=== PATIENT | male | born 1990 | race Caucasian/White ===

== ENCOUNTER 2023-06-12 21:42 | Inpatient (IN) | payer OTHER ==
[2023-06-12] MEDS ORDERED: KETOROLAC 15 MG/ML 1 ML VIAL IVP STA (22:26)
[2023-06-12] MEDS ORDERED: SODIUM CHLORIDE 0.9% 1,000 ML IV STA (22:44)
[2023-06-12] MEDS ORDERED: LORazepam 2 MG/ML INJ IV STA (22:49)
[2023-06-12 23:24] LABS: Basophils # (A) 0.1 k/uL (0-0.2); Basophils % (A) 0 %; Eosinophils # (A) 0.2 k/uL (0-0.7); Eosinophils % (A) 1 %; HCT 43.9 % (39.0-53.0); HGB 14.4 gm/dL (13.0-17.5); Lymphocytes # (A) 0.8 k/uL (1.0-4.8); Lymphocytes % (A) 3 %; MCH 31.8 pg (25.0-35.0); MCHC 32.9 g/dL (31.0-37.0); MCV 96.8 fL (80.0-100.0); Mean Platelet Volume 9.2; Monocytes # (A) 1.2 k/uL (0-1.0); Monocytes % (A) 4 %; Neutrophils # (A) 25.2 k/uL (1.3-7.7); Neutrophils % (A) 91 %; Platelet Count 240 k/uL (150-450); RBC 4.54 m/uL (4.30-5.90); RDW 12.3 % (11.5-15.5); WBC 27.8 k/uL (3.8-10.6)
[2023-06-12 23:32] LABS: ALT 33 U/L (4-49); AST 65 U/L (17-59); African American GFR (CKD) >90 (>60 ml/min/1.73 sqM); Albumin 3.4 g/dL (3.5-5.0); Alkaline Phosphatase 79 U/L (38-126); Anion Gap 6 mmol/L; Blood Urea Nitrogen 24 mg/dL (9-20); Calcium 9.3 mg/dL (8.4-10.2); Carbon Dioxide 27 mmol/L (22-30); Chloride 102 mmol/L (98-107); Glucose 117 mg/dL (74-99); Non-African American GFR(CKD) 82 (>60 ml/min/1.73 sqM); Potassium 4.9 mmol/L (3.5-5.1); Sodium 135 mmol/L (137-145); Total Bilirubin 0.5 mg/dL (0.2-1.3); Total Protein 6.6 g/dL (6.3-8.2)
[2023-06-13] MEDS ORDERED: VANCOMYCIN IV PER PHARMACY 1 EACH MISC MISCELLANE PRN (00:22)
[2023-06-13] MEDS ORDERED: PIPERACILLIN-TAZOBACTAM 3.375 GM in SODIUM CHLORIDE 0.9% 100 ML IVPB STA (00:24)
[2023-06-13] MEDS ORDERED: VANCOMYCIN 1,500 MG in SODIUM CHLORIDE 0.9% 500 ML 500 ML IVPB STA (00:25)
[2023-06-13] MEDS ORDERED: NALOXONE 0.4 MG/ML 1 ML VIAL IV PRN (00:38)
[2023-06-13] MEDS ORDERED: ONDANSETRON 4 MG/2 ML VIAL IVP PRN (00:38)
[2023-06-13] MEDS ORDERED: DIPH,PERTUS(ACELL)TETVAC-LF 0.5 ML VIAL IM ONE (00:56)
--- NOTE | 2023-06-13 01:03 | ED ---
General Adult HPI - General Chief complaint: Skin/Abscess/Foreign Body Stated complaint: Blood infection Source: patient Mode of arrival: wheelchair Limitations: no limitations - History of Present Illness Initial comments: Patient is a 32-year-old male who presents to the emergency department for neck infection. Patient was evaluated in the emergency department yesterday for i ngrown hair infection in his lower right scalp. Patient was placed on Bactrim. States he has taken one dose of this. He feels that the infection is worsening. He reports worsening of redness and pain in his neck that travels down his upper back. A couple days ago patient did try to pop the ingrown hair pimple with a dirty nail. Patient states his whole body hurts. He denies fever, chills, nausea, vomiting. Patient is an IV heroin user, last use yesterday. He denies chest pain and shortness of breath. He denies numbness and tingling. Denies loss of bowel or bladder function. - Related Data Previous Rx's Medication Instructions Recorded Lidocaine 5% Patch [Lidoderm 5% 1 patch TOPICAL DAILY PRN 14 Days 06/12/23 Patch] #14 patch Sulfamethox-Tmp 800-160Mg [Bactrim 1 tab PO Q12HR 7 Days #14 tab 06/12/23 DS 800-160 mg] Allergies Allergy/AdvReac Type Severity Reaction Status Date / Time No Known Allergies Allergy Verified 06/12/23 21:56 Review of Systems ROS Statement: Those systems with pertinent positive or pertinent negative responses have been documented in the HPI. ROS Other: All systems not noted in ROS Statement are negative. Past Medical History Past Medical History: No Reported History History of Any Multi-Drug Resistant Organisms: None Reported Past Surgical History: No Surgical Hx Reported Past Psychological History: No Psychological Hx Reported Smoking Status: Current every day smoker Past Alcohol Use History: None Reported Past Drug Use History: Heroin, IV Drug Use, Marijuana, Opiates, Prescription Drug Abuse General Exam Limitations: no limitations General appearance: alert Eye exam: Present: normal appearance, PERRL, EOMI. Absent: scleral icterus, conjunctival injection, periorbital swelling Neck exam: Present: full ROM, other (ingrown hair right lower scalp with 1-2 cm surrounding induration. minimal fluctuance. erythema surrounding ingrown hair traveling down lateral/posterior neck. Some warmth. Blanching and tenderness). Absent: meningismus, lymphadenopathy Respiratory exam: Present: normal lung sounds bilaterally. Absent: respiratory distress, wheezes, rales, rhonchi, stridor Cardiovascular Exam: Present: regular rate, normal rhythm, normal heart sounds. Absent: systolic murmur, diastolic murmur, rubs, gallop, clicks Neurological exam: Present: alert Psychiatric exam: Present: normal affect, normal mood Skin exam: Present: warm, dry, intact, normal color. Absent: rash Course Vital Signs 06/12/23 21:54 Temperature 99 F Pulse Rate 85 Respiratory 18 Rate Blood Pressure 157/76 O2 Sat by Pulse 97 Oximetry Medical Decision Making - Medical Decision Making Was pt. sent in by a medical professional or institution (MARY Cespedes, INFORMATION BROKER, urgent care, hospital, or care home...) When possible be specific @ -No Did you speak to anyone other than the patient for history (EMS, parent, family, police, friend...)? What history was obtained from this source @ -No Did you review nursing and triage notes (agree or disagree)? Why? @ -Reviewed ED note from yesterday Were old charts reviewed (outside hosp., previous admission, EMS record, old EKG, old radiological studies, urgent care reports/EKG's, care home records)? Report findings @ -No old charts were reviewed Differential Diagnosis (chest pain, altered mental status, abdominal pain women, abdominal pain men, vaginal bleeding, weakness, fever, dyspnea, syncope, headache, dizziness, GI bleed, back pain, seizure, CVA, palpatations, mental health)? @ -Ingrown hair, thyroid is, abscess, sepsis EKG interpreted by me (3pts min.). @ -As above X-rays interpreted by me (1pt min.). @ -None done CT interpreted by me (1pt min.). @ -None done U/S interpreted by me (1pt. min.). @ -None done What testing was considered but not performed or refused? (CT, X-rays, U/S, labs)? Why? @ -None What meds were considered but not given or refused? Why? @ -None Did you discuss the management of the patient with other professionals (professionals i.e. MARY Cespedes, INFORMATION BROKER, lab, RT, psych nurse, social service agency director, u.s. representative, teacher, commanding officer garage, casework specialist)? Give summary @ -No Was smoking cessation discussed for >3mins.? @ -No Was critical care preformed (if so, how long)? @ -No Were there social determinants of health that impacted care today? How? (Homelessness, low income, unemployed, alcoholism, drug addiction, transportation, low edu. Level, literacy, decrease access to med. care, retirement, rehab)? @ -No Was there de-escalation of care discussed even if they declined (Discuss DNR or withdrawal of care, Hospice)? DNR status @ -No What co-morbidities impacted this encounter? (DM, HTN, Smoking, COPD, CAD, Cancer, CVA, ARF, Chemo, Hep., AIDS, mental health diagnosis, sleep apnea, morbid obesity)? @ -None Was patient admitted / discharged? Hospital course, mention meds given and route, prescriptions, significant lab abnormalities, going to OR and other pertinent info. @ -32 year old presenting for neck infection. Patient is an IV drug user not currently in withdrawal. Admitted for cellulitis of the neck with high white count at 27.8. Blood cultures obtained patient started on vancomycin along with zosyn for pseudomonas coverage. Patient afebrile, no tachycardia, lactic normal. He is admitted in for IV antibiotics Dr. Isidro accepts admission. ID on consult. Undiagnosed new problem with uncertain prognosis? @ -[No] Drug Therapy requiring intensive monitoring for toxicity (Heparin, Nitro, Insulin, Cardizem)? @ -[No] Were any procedures done? @ -[No] Diagnosis/symptom? @ -cellulitis of neck, leukocytosis Acute, or Chronic, or Acute on Chronic? @ -acute Uncomplicated (without systemic symptoms) or Complicated (systemic symptoms)? @ -uncomplicated Side effects of treatment? @ -[No] Exacerbation, Progression, or Severe Exacerbation? @ -[No] Poses a threat to life or bodily function? How? (Chest pain, [place], [place], pneumonia, PE, COPD, DKA, ARF, appy, cholecystitis, CVA, Diverticulitis, Homicidal, Suicidal, threat to staff... and all critical care pts) @ -No Dr. Mehta is my attending - Lab Data Result diagrams: 06/12/23 23:11 06/12/23 23:11 Lab Results 06/12/23 06/12/23 06/12/23 Range/Units 23:11 23:11 23:11 WBC 27.8 H (3.8-10.6) k/uL RBC 4.54 (4.30-5.90) m/uL Hgb 14.4 (13.0-17.5) gm/dL Hct 43.9 (39.0-53.0) % MCV 96.8 (80.0-100.0) fL MCH 31.8 (25.0-35.0) pg MCHC 32.9 (31.0-37.0) g/dL RDW 12.3 (11.5-15.5) % Plt Count 240 (150-450) k/uL MPV 9.2 Neutrophils % 91 % Lymphocytes % 3 % Monocytes % 4 % Eosinophils % 1 % Basophils % 0 % Neutrophils # 25.2 H (1.3-7.7) k/uL Lymphocytes # 0.8 L (1.0-4.8) k/uL Monocytes # 1.2 H (0-1.0) k/uL Eosinophils # 0.2 (0-0.7) k/uL Basophils # 0.1 (0-0.2) k/uL Manual Slide Review Performed Sodium 135 L (137-145) mmol/L Potassium 4.9 (3.5-5.1) mmol/L Chloride 102 (98-107) mmol/L Carbon Dioxide 27 (22-30) mmol/L Anion Gap 6 mmol/L BUN 24 H (9-20) mg/dL Creatinine 1.18 (0.66-1.25) mg/dL Est GFR (CKD-EPI)AfAm >90 (>60 ml/min/1.73 sqM) Est GFR (CKD-EPI)NonAf 82 (>60 ml/min/1.73 sqM) Glucose 117 H (74-99) mg/dL Plasma Lactic Acid Neil 1.3 (0.7-2.0) mmol/L Calcium 9.3 (8.4-10.2) mg/dL Total Bilirubin 0.5 (0.2-1.3) mg/dL AST 65 H (17-59) U/L ALT 33 (4-49) U/L Alkaline Phosphatase 79 (38-126) U/L Total Protein 6.6 (6.3-8.2) g/dL Albumin 3.4 L (3.5-5.0) g/dL Influenza Type A (PCR) (Not Detectd) Influenza Type B (PCR) (Not Detectd) RSV (PCR) (Not Detectd) SARS-CoV-2 (PCR) (Not Detectd) 06/12/23 Range/Units 23:11 WBC (3.8-10.6) k/uL RBC (4.30-5.90) m/uL Hgb (13.0-17.5) gm/dL Hct (39.0-53.0) % MCV (80.0-100.0) fL MCH (25.0-35.0) pg MCHC (31.0-37.0) g/dL RDW (11.5-15.5) % Plt Count (150-450) k/uL MPV Neutrophils % % Lymphocytes % % Monocytes % % Eosinophils % % Basophils % % Neutrophils # (1.3-7.7) k/uL Lymphocytes # (1.0-4.8) k/uL Monocytes # (0-1.0) k/uL Eosinophils # (0-0.7) k/uL Basophils # (0-0.2) k/uL Manual Slide Review Sodium (137-145) mmol/L Potassium (3.5-5.1) mmol/L Chloride (98-107) mmol/L Carbon Dioxide (22-30) mmol/L Anion Gap mmol/L BUN (9-20) mg/dL Creatinine (0.66-1.25) mg/dL Est GFR (CKD-EPI)AfAm (>60 ml/min/1.73 sqM) Est GFR (CKD-EPI)NonAf (>60 ml/min/1.73 sqM) Glucose (74-99) mg/dL Plasma Lactic Acid Neil (0.7-2.0) mmol/L Calcium (8.4-10.2) mg/dL Total Bilirubin (0.2-1.3) mg/dL AST (17-59) U/L ALT (4-49) U/L Alkaline Phosphatase (38-126) U/L Total Protein (6.3-8.2) g/dL Albumin (3.5-5.0) g/dL Influenza Type A (PCR) Not Detected (Not Detectd) Influenza Type B (PCR) Not Detected (Not Detectd) RSV (PCR) Not Detected (Not Detectd) SARS-CoV-2 (PCR) Not Detected (Not Detectd) Disposition Clinical Impression: Cellulitis of neck, Leukocytosis Disposition: ADMITTED IP TO THIS HOSP Condition: Fair
[2023-06-13] MEDS: SODIUM CHLORIDE 0.9% 1,000 ML IV SCH ×4 (02:01→23:33)
[2023-06-13] MEDS ORDERED: ALPRAZolam 0.25 MG TAB PO STA (03:32)
--- NOTE | 2023-06-13 03:34 | P.HPIM ---
History of Present Illness H&P Date: 06/13/23 Patient is a 32-year-old male with a PMH of heroin abuse who presents to the emergency room with complaints of right neck ulcer with pain and swelling. The patient was seen in the emergency room yesterday for right posterior upper neck ingrown hair infection. He was discharged home on Bactrim. He returns to the ED with complaints of worsening pain and redness in the area. He reports myalgias with chills. He attempted to pop the blister in the area with a dirty nail few days ago. Reports ongoing heroin use last use yesterday. Denied chest discomfort or shortness of breath. Denied nausea, vomiting, abdominal pain. Denied headaches, weakness, numbness, tingling. The patient is currently homeless. Laboratory evaluation is remarkable for leukocytosis at 27.8 with AST 65 and sodium 135. ED documentation reviewed and case discussed with ED provider. Review of systems: Pertinent positives and negatives as discussed in HPI, a complete review of systems was performed and all other systems are negative. Physical examination: Vital signs reviewed General: non toxic, no distress, appears at stated age, normal weight Derm: Right posterior upper neck ulcer with scab with nodularity and surrounding erythema within no discernible fluctuance, warm Head: atraumatic, normocephalic, symmetric Eyes: EOMI, no lid lag, anicteric sclera, pupils equal round reactive to light ENT: Nose and ears atraumatic Neck: No cervical lymphadenopathy, trachea midline, supple Mouth: no lip lesion, mucus membranes moist Cardiovascular: S1S2 reg, no murmur, positive dorsalis pedis pulse bilateral, no edema Lungs: CTA bilateral, no rhonchi, no rales, no accessory muscle use Abdominal: soft, nontender to palpation, no guarding Ext: muscle strength 5 out of 5 in all 4 extremities grossly, no gross muscle atrophy, no contractures, Neuro: CN II-XI grossly intact, no gross focal neuro deficits Psych: Alert, oriented, appropriate affect Assessment: Right posterior upper neck ulcer with cellulitis Heroin abuse Imaging: None performed Data Review: Laboratory evaluation is remarkable for leukocytosis at 27.8 with AST 65 and sodium 135. Plan: Continue patient with IV vancomycin and Zosyn for MRSA and pseudomonas coverage (used dirty nail) Continue IV fluids normal saline 130 mL/hr Follow-up blood cultures Infectious disease consulted DVT prophylaxis: Lovenox subq The patient is admitted with an anticipated greater than 2 midnight stay for evaluation of cellulitis CODE STATUS: Full Code Discussed with: Patient Anticipated discharge place: [facility] Past Medical History Past Medical History: No Reported History Additional Past Medical History / Comment(s): IV drug use (heroine) History of Any Multi-Drug Resistant Organisms: None Reported Past Surgical History: No Surgical Hx Reported Past Psychological History: No Psychological Hx Reported Smoking Status: Current every day smoker Past Alcohol Use History: None Reported Past Drug Use History: Heroin, IV Drug Use, Marijuana, Opiates, Prescription Drug Abuse - Past Family History Mother Family Medical History: Unable to Obtain (Patient refused to provide family history) Medications and Allergies Home Medications Medication Instructions Recorded Confirmed Type Lidocaine 5% Patch [Lidoderm 5% 1 patch TOPICAL DAILY PRN 14 Days 06/12/23 Rx Patch] #14 patch Sulfamethox-Tmp 800-160Mg [Bactrim 1 tab PO Q12HR 7 Days #14 tab 06/12/23 Rx DS 800-160 mg] Allergies Allergy/AdvReac Type Severity Reaction Status Date / Time No Known Allergies Allergy Verified 06/12/23 21:56 Physical Exam Vitals: Vital Signs Temp Pulse Pulse Resp BP BP Pulse Ox 06/13/23 01:38 98.3 F 79 16 133/67 95 06/12/23 23:56 164/75 06/12/23 21:54 99 F 85 18 157/76 97 Intake and Output 06/12/23 06/12/23 06/13/23 14:59 22:59 06:59 Output Total 400 Balance -400 Output: Urine 400 Other: Weight 77.111 kg 77.111 kg Results CBC & Chem 7: 06/12/23 23:11 06/12/23 23:11 Labs: Abnormal Lab Results - Last 24 Hours (Table) 06/12/23 06/12/23 Range/Units 23:11 23:11 WBC 27.8 H (3.8-10.6) k/uL Neutrophils # 25.2 H (1.3-7.7) k/uL Lymphocytes # 0.8 L (1.0-4.8) k/uL Monocytes # 1.2 H (0-1.0) k/uL Sodium 135 L (137-145) mmol/L BUN 24 H (9-20) mg/dL Glucose 117 H (74-99) mg/dL AST 65 H (17-59) U/L Albumin 3.4 L (3.5-5.0) g/dL Thrombosis Risk Factor Assmnt - Choose All That Apply Any of the Below Risk Factors Present?: No Other Risk Factors: No Other congenital or acquired thrombophilia - If yes, enter type in comment: No Thrombosis Risk Factor Assessment Level: Very Low Risk
[2023-06-13] MEDS: KETOROLAC 15 MG/ML 1 ML VIAL IVP PRN ×4 (04:18→23:31)
[2023-06-13] MEDS ORDERED: RX INFO: IV CONTRAST WAS GIVEN 1 EACH MISC MISCELLANE PRN (09:25)
[2023-06-13] MEDS: cloNIDine HCL 0.1 MG TAB PO PRN ×2 (09:40→17:31)
[2023-06-13] MEDS: ENOXAPARIN 40 MG/0.4 ML SYRINGE SQ SCH (09:40)
[2023-06-13] MEDS: METHADONE 5 MG TAB PO PRN ×3 (10:16→22:06)
[2023-06-13 10:46] LABS: HCT 40.2 % (39.0-53.0); HGB 13.4 gm/dL (13.0-17.5); MCH 31.5 pg (25.0-35.0); MCHC 33.2 g/dL (31.0-37.0); Platelet Count 223 k/uL (150-450); RBC 4.24 m/uL (4.30-5.90); RDW 12.7 % (11.5-15.5); WBC 22.9 k/uL (3.8-10.6)
[2023-06-13 10:50] LABS: African American GFR (CKD) >90 (>60 ml/min/1.73 sqM); Anion Gap 7 mmol/L; Blood Urea Nitrogen 19 mg/dL (9-20); Calcium 8.6 mg/dL (8.4-10.2); Carbon Dioxide 20 mmol/L (22-30); Chloride 106 mmol/L (98-107); Glucose 117 mg/dL (74-99); Non-African American GFR(CKD) >90 (>60 ml/min/1.73 sqM); Potassium 4.3 mmol/L (3.5-5.1); Sodium 133 mmol/L (137-145)
--- NOTE | 2023-06-13 11:13 | CT ---
EXAMINATION TYPE: CT brain w con DATE OF EXAM: 06/13/2023 COMPARISON: CT brain November 06, 2011 HISTORY: Right posterior neck/ear pain. CT DLP: 1054.3 mGycm. Automated Exposure Control for Dose Reduction was Utilized. TECHNIQUE: CT scan of the head is performed with IV Contrast, patient injected with 100ml mL of Iso janeth 300. FINDINGS: The ventricles and sulci are within normal limits in size. Postcontrast images show no simpson spicious enhancing intraparenchymal mass. Beatty-white matter differentiation is preserved. The globes are intact and the visualized sinuses are predominantly clear. There are suspected mucous retention c yst or polyp in inferior left maxillary sinus partially imaged IMPRESSION: No abnormal enhancing intracranial mass. No midline shift.
--- NOTE | 2023-06-13 11:20 | CT ---
EXAMINATION TYPE: CT soft tissue neck w con DATE OF EXAM: 06/13/2023 HISTORY: Right posterior neck/ear pain. COMPARISON: Same day CT brain study. Chest x-ray from one day earlier. CT DLP: 550.2 mGycm. Automated Exposure Control for Dose Reduction was Utilized. TECHNIQUE: CT scan of the neck is performed with IV Contrast, patient injected with 100ml mL of Isov ue 300, axial images are obtained, coronal and sagittal reformatted images are reviewed. FINDINGS: Airway: There is 1.7 cm cavitating nodule posterior left lung apex axial image 20. There is 1.2 cm ri ght apical nodule or nodular consolidation axial image 21. There is similar 1.2 cm nodule or nodular consolidation superior aspect left lower lobe axial image 3. There is curvilinear low density in the posterior medial right upper lung axial image 1 measuring 6.0 x 2.0 cm possible focal thin-walled flu id or cystic lesion. There is 3.0 cm focus of groundglass opacity and organizing consolidation in the right midlung axial image 1. Additional smaller areas of groundglass opacity are present. Parotid/submandibular glands: No gross abnormality seen. Carotid/Vascular Structures: No gross abnormality. Osseous Structures: Slight scoliotic curvature or positioning. Other: There is asymmetric ill-defined focal thin-walled fluid in the right posterior neck axial imag e 68 measuring 3.0 x 1.2 cm x 3.5 cm craniocaudal dimension sagittal image 25. Some adjacent prominen t but subcentimeter lymph nodes are seen in the posterior cervical triangle. There is 2.0 cm mucous retention cyst or polyp in the inferior left maxillary sinus. There is a four-vessel origin from the aortic arch which is normal variant. IMPRESSION: 1. There is small to moderate size 6.0 x 2.0 x 3.0 cm thin-walled fluid collection in the posterior r ight neck as detailed above, developing abscess is in differential. 2. Multifocal areas of ground glass opacity and pulmonary nodularity/nodular consolidation with suspe cted left apical cavitary lesion. Acute infectious process or Septic emboli are suspected. Correlate clinically. Dedicated chest CT follow-up may be beneficial to further evaluate. Underlying neoplasm i s not entirely excluded due to bilateral pulmonary nodularity/nodules. Follow-up advised.
--- NOTE | 2023-06-13 12:02 | P.PN ---
Subjective Progress Note Date: 06/13/23 (imelda charting seen at 0830) Patient is a 32-year-old male with heroin abuse who presented to the ER with complaints of right neck ulceration with pain and swelling. Patient had been c lean for approximately 4 months when he relapsed 6 days ago. He was seen in the emergency department on ingrown pimple on the back of his neck and he was prescribed Bactrim. A repeat set at less than 24 hours later due to worsening infection. On arrival to the ER his vital signs are within normal limits. Laboratory analysis was remarkable for white blood cell count of 27.8, sodium 135, BUN 24. Chest x-ray showed no acute process. There was concern for worsening cellulitis despite oral antibiotics and is therefore admitted and placed on vancomycin and Zosyn. He was started on IV fluids. The next morning he was having worsening neck pain as well as withdrawal symptoms. Patient seen and examined at bedside. He states that he was clean for 4 months and relapsed approximately 6 days ago. He is asking for Suboxone Him that we are unable to start this at this time but that I could start him on some methadone for a few pills to see if that helps. He states that this is unlike any withdrawal he's had in the past as he is having severe neck pain that starts at the midline and moves both right and left. He denies that the lesion on his neck is from injection. Vital signs reviewed General: nontoxic, moderate distress, appears at stated age, + diaphoretic Cardiovascular: S1S2 reg, no murmur, positive posterior tibial pulse bilateral, Dermatologic: Quarter-sized ulcerative lesion right posterior neck behind the ear with surrounding erythema, warmth, and swelling Lungs: Decreased bs bilateral, no rhonchi, no rales , no accessory muscle use Abdominal: soft, nontender to palpation, no guarding, no appreciable organomegaly Ext: no gross muscle atrophy, no edema b/l lower extremities, no contractures Neuro: CN II-XI grossly intact, no focal neuro deficits Psych: Alert, oriented, appropriate affect Assessment/Plan: Posterior right neck abscess Probable septic emboli Sepsis -Case discussed with Dr. Cason will continue with vancomycin. Zosyn will be transitioned to cefepime. Consult general surgery for drainage of neck abscess. Check echocardiogram. Await blood cultures. -Vancomycin with dosing based on trough. Monitor toxicity by following vancomycin trough levels and creatinine levels -Cefepime 2 g every 12 hours IV piggyback -IV fluids normal saline at 130 mL/h Heroin dependency - Methadone 5 mg 4 times daily as needed for pain -Toradol 15 mg IV every 6 hours when necessary moderate pain -Catapres 0.1 mg by mouth 3 times daily for withdrawal symptoms Imaging: CT soft tissue of the neck-small to moderate size 6 x 2 x 3 cm thin-walled fluid collection posterior right neck, multiple area of ground glass opacification consistent with probable septic emboli Head CT- No acute process Data Review: Afebrile since admission Labs reviewed include CBC and basic metabolic profile as well as lactic acid which are remarkable for white blood cell count 22.9, sodium 135, and glucose of 117. DVT prophylaxis: Lovenox Anticipated discharge date: Pending Clinical Course Anticipated discharge place: Pending Clinical Course This dictation was prepared using [employer] voice recognition software. Though every attempt is made to correct errors during dictation some may still exist. Objective - Vital Signs Vital signs: Vital Signs Temp 99.3 F 06/13/23 07:39 Pulse 90 06/13/23 07:39 Resp 18 06/13/23 07:39 BP 125/64 06/13/23 07:39 Pulse Ox 96 06/13/23 07:39 FiO2 Intake & Output 06/12/23 06/13/23 06/13/23 18:59 06:59 18:59 Intake Total 1600 Output Total 400 Balance 1200 Weight 77.111 kg Intake: Intake, IV Titration 1100 Amount Piperacillin-Tazobactam 3 100 .375 gm In Sodium Chloride 0.9% 100 ml @ 25 mls/hr IVPB Q8H [facility]ENO[facility] Rx#: [id number] Sodium Chloride 0.9% 1, 500 000 ml @ 130 mls/hr IV . [id number] [facility] Rx#:[id number] Vancomycin 1,500 mg In 500 Sodium Chloride 0.9% 500 ml 500 ml @ 167 mls/hr IVPB Q12H [facility] Rx#: [id number] Oral 500 Output: Urine 400 Other: Voiding Method Toilet Bedside Commode Urinal - Labs CBC & Chem 7: 06/13/23 10:19 06/13/23 10:19 Labs: Abnormal Lab Results - Last 24 Hours (Table) 06/12/23 06/12/23 06/13/23 Range/Units 23:11 23:11 10:19 WBC 27.8 H 22.9 H (3.8-10.6) k/uL RBC 4.24 L (4.30-5.90) m/uL Neutrophils # 25.2 H (1.3-7.7) k/uL Lymphocytes # 0.8 L (1.0-4.8) k/uL Monocytes # 1.2 H (0-1.0) k/uL Sodium 135 L (137-145) mmol/L Carbon Dioxide (22-30) mmol/L BUN 24 H (9-20) mg/dL Glucose 117 H (74-99) mg/dL AST 65 H (17-59) U/L Albumin 3.4 L (3.5-5.0) g/dL 06/13/23 Range/Units 10:19 WBC (3.8-10.6) k/uL RBC (4.30-5.90) m/uL Neutrophils # (1.3-7.7) k/uL Lymphocytes # (1.0-4.8) k/uL Monocytes # (0-1.0) k/uL Sodium 133 L (137-145) mmol/L Carbon Dioxide 20 L (22-30) mmol/L BUN (9-20) mg/dL Glucose 117 H (74-99) mg/dL AST (17-59) U/L Albumin (3.5-5.0) g/dL
[2023-06-13] MEDS ORDERED: PIPERACILLIN-TAZOBACTAM 3.375 GM in SODIUM CHLORIDE 0.9% 100 ML IVPB SCH (13:00)
[2023-06-13] MEDS: VANCOMYCIN 1,500 MG in SODIUM CHLORIDE 0.9% 500 ML 500 ML IVPB SCH (14:50)
[2023-06-13] MEDS: CEFEPIME 2 GM in SODIUM CHLORIDE 0.9% 100 ML IVPB SCH ×2 (15:21→23:31)
[2023-06-13] MEDS ORDERED: ARTIFICIAL TEARS-HYPROMELLOSE DROPS 15 ML BTL BOTH EYES PRN (17:43)
[2023-06-13] MEDS ORDERED: PROPARACAINE 0.5% OPHTH DROPS 15 ML BTL BOTH EYES STA (17:43)
[2023-06-13] MEDS ORDERED: TROPICAMIDE 1% OPHTH DROPS 2 ML BTL BOTH EYES ONE (17:43)
[2023-06-13] MEDS: PHENYLEPHRINE 2.5% OPHTH DRP 2ML BOTH EYES SCH (18:09)
[2023-06-13] MEDS: ACETAMINOPHEN TAB 500 MG TAB PO PRN (19:29)
[2023-06-13] MEDS: NICOTINE 21MG/24HR PATCH TRANSDERM SCH (20:55)
--- NOTE | 2023-06-13 23:01 | P.CONS ---
History of Present Illness - Reason for Consult Consult date: 06/13/23 Cellulitis Requesting physician: Ryanne Child - Chief Complaint Pain and swelling to the neck x few days - History of Present Illness Patient is a 32-year-old male with a past medical history Nupercaine for IV drug use current everyday smoker presenting to the hospital for evaluation of painful lump to the right side of the posterior neck apparently patient symptom has been going on for few days patient was evaluated in the ER the day before admission to the hospital and the patient was discharged on Bactrim patient present to hospital with worsening pain and redness to the area also complaining of generalized body aches and chills patient describing his pain to be throbbing almost out of 10 in severity without radiation no drainage patient denies any nausea no vomiting no abdominal pain only diarrhea on presentation to the hospital patient did have a low-grade fever of 99 degrees: Height and a low-grade fever this morning patient did not have significant tachycardia or hypotension or hypoxemia he did have a white count 27.8 which is down to 22.9 today creatinine is 1.07 influenza RSV COVID testing was negative patient did have a soft tissue neck CT which shows asymmetric ill-defined focal thin wall fluid in the right posterior neck and there was also concern for multifocal areas of groundglass opacity and pulmonary nodule concerning for s eptic emboli patient was started on vancomycin and Zosyn infectious he was consulted for further management of antibiotic therapy blood cultures are currently pending Review of Systems Positive point and negatives has been mentioned in the HPI, complete review of systems was performed and all other systems are negative Past Medical History Past Medical History: No Reported History Additional Past Medical History / Comment(s): IV drug use (heroine) History of Any Multi-Drug Resistant Organisms: None Reported Past Surgical History: No Surgical Hx Reported Past Psychological History: No Psychological Hx Reported Smoking Status: Current every day smoker Past Alcohol Use History: None Reported Past Drug Use History: Heroin, IV Drug Use, Marijuana, Opiates, Prescription Drug Abuse - Past Family History Mother Family Medical History: Unable to Obtain (Patient refused to provide family history) Medications and Allergies Home Medications Medication Instructions Recorded Confirmed Type Vancomycin HCl in 5 % Dextrose 1.5 gm IV Q8HR #120 each 06/24/23 Rx [Vancomycin 1 Gram/250 ml-D5w] Acetaminophen Tab [Tylenol] 1,000 mg PO Q6H PRN tab 06/25/23 Rx Gabapentin [Neurontin] See Rx Instructions .ROUTE 06/25/23 Rx .COMPLEX 7 Days #101 cap Rivaroxaban [Xarelto] 10 mg PO DAILY #42 tab 06/25/23 Rx Zolpidem [Ambien] See Rx Instructions .ROUTE 06/25/23 Rx .COMPLEX PRN #10 tab Allergies Allergy/AdvReac Type Severity Reaction Status Date / Time No Known Allergies Allergy Verified 06/13/23 10:32 Physical Exam Vitals: Vital Signs Temp Pulse Pulse Resp BP BP Pulse Ox 06/13/23 07:39 99.3 F 90 18 125/64 96 06/13/23 03:00 16 06/13/23 01:38 98.3 F 79 16 133/67 95 06/12/23 23:56 164/75 06/12/23 21:54 99 F 85 18 157/76 97 Intake and Output 06/12/23 06/13/23 06/13/23 22:59 06:59 14:59 Intake Total 1600 Output Total 400 Balance 1200 Intake: Intake, IV Titration 1100 Amount Piperacillin-Tazobactam 3 100 .375 gm In Sodium Chloride 0.9% 100 ml @ 25 mls/hr IVPB Q8H [facility] Rx#: [id number] Sodium Chloride 0.9% 1, 500 000 ml @ 130 mls/hr IV . Q7H42M [facility] Rx#:[id number] Vancomycin 1,500 mg In 500 Sodium Chloride 0.9% 500 ml 500 ml @ 167 mls/hr IVPB Q12H [facility] Rx#: [id number] Oral 500 Output: Urine 400 Other: Voiding Method Toilet Bedside Commode Urinal Weight 77.111 kg 77.111 kg GENERAL DESCRIPTION: Middle-aged male lying in bed, no distress. No tachypnea or accessory muscle of respiration use. HEENT: Shows Pallor , no scleral icterus. Oral mucous membrane is dry. No pharyngeal erythema or thrush NECK: Posterior neck area did have a swelling redness or induration and tenderness LUNGS: Unlabored breathing. Clear to auscultation anteriorly. No wheeze or crackle. HEART: S1, S2, regular rate and rhythm. No loud murmur ABDOMEN: Soft, no tenderness , guarding or rigidity, no organomegaly EXTREMITIES: No edema of feet. SKIN: No rash, no masses palpable. NEUROLOGICAL: The patient is awake, alert, oriented x3, mood and affect normal. Results CBC & Chem 7: 06/24/23 05:37 06/24/23 05:37 Labs: Abnormal Lab Results - Last 24 Hours (Table) 06/12/23 06/12/23 Range/Units 23:11 23:11 WBC 27.8 H (3.8-10.6) k/uL Neutrophils # 25.2 H (1.3-7.7) k/uL Lymphocytes # 0.8 L (1.0-4.8) k/uL Monocytes # 1.2 H (0-1.0) k/uL Sodium 135 L (137-145) mmol/L BUN 24 H (9-20) mg/dL Glucose 117 H (74-99) mg/dL AST 65 H (17-59) U/L Albumin 3.4 L (3.5-5.0) g/dL Assessment and Plan (1) Neck abscess Current Visit: Yes Status: Acute Code(s): L02.11 - CUTANEOUS ABSCESS OF NECK SNOMED Code(s): 6202800 Plan: 1patient presented to hospital with right posterior neck pain swelling and induration with evidence of abscess on the CT and also concerning for possible septic emboli in this patient who do have history of IV drug use high clinic suspicious for likely MRSA, gram-negative infection less likely but not entirely excluded 2await echocardiogram and blood cultures to finalize 3patient will benefit from surgical drainage of this abscess and deep culture 4we will continue the patient on vancomycin however switch Zosyn to cefepime to decrease risk of nephrotoxicity We will follow on clinical condition and cultures to further adjust medication if needed Thank you for this consultation we will follow the patient along with you Dictation was produced using [email or web address] dictation software. please excuse any grammatical, word or spelling errors. Time with Patient: Greater than 30
[2023-06-14] MEDS: cloNIDine HCL 0.1 MG TAB PO PRN ×3 (01:22→17:07)
[2023-06-14] MEDS: VANCOMYCIN 1,500 MG in SODIUM CHLORIDE 0.9% 500 ML 500 ML IVPB SCH ×2 (01:22→12:57)
[2023-06-14] MEDS: METHADONE 5 MG TAB PO PRN ×4 (04:03→23:04)
[2023-06-14] MEDS: SODIUM CHLORIDE 0.9% 1,000 ML IV SCH ×3 (06:26→22:25)
[2023-06-14 07:31] LABS: African American GFR (CKD) >90 (>60 ml/min/1.73 sqM); Non-African American GFR(CKD) >90 (>60 ml/min/1.73 sqM)
--- NOTE | 2023-06-14 08:35 | P.CON ---
Consult Note - . Consult date: 06/14/23 Assessment/Plan:: Consultation requested for new onset floaters in eyes subjectively noted after CT examination, in a patient with a probable disseminated infection from drug usage. This is a patient who has never worn glasses and has not had any eye exa m. He states he not had any pain in the right eye, has no diplopia, but is blurry in the right eye. He's feverish today, and is reluctant to proceed with the examination. External: Va w/o glasses: 20/30 OD; 20/20 OS Ext: Normal, without overt asymmetry, swelling, erythema, bruising. EOM: full D&V CF: full OU Pupils: NO APD IOP: unable intraocular examination incomplete and terminated, due to patient's lack of cooperation. A: 1) Vitreous floaters 2) Anxiety uncontrolled 3) recreational drug usage, likely with systemic infection P: examination aborted without intraocular examination due to patient's anxiety of allowing for the examination. overall, do not believe there is a serious eye problem, based on lack of eye pain, poor vision, normal pupillary function and external examination. Patient could use an eye exam at sometime, if he will permit it.
[2023-06-14] MEDS: NICOTINE 21MG/24HR PATCH TRANSDERM SCH (08:40)
[2023-06-14] MEDS: CEFEPIME 2 GM in SODIUM CHLORIDE 0.9% 100 ML IVPB SCH (08:41)
[2023-06-14] MEDS: KETOROLAC 15 MG/ML 1 ML VIAL IVP PRN ×3 (08:41→20:14)
[2023-06-14] MEDS ORDERED: RX INFO: IV CONTRAST WAS GIVEN 1 EACH MISC MISCELLANE PRN (08:59)
[2023-06-14 09:15] LABS: HCT 40.9 % (39.0-53.0); HGB 13.3 gm/dL (13.0-17.5); MCH 31.7 pg (25.0-35.0); MCHC 32.5 g/dL (31.0-37.0); MCV 97.6 fL (80.0-100.0); Platelet Count 272 k/uL (150-450); RBC 4.19 m/uL (4.30-5.90); RDW 12.8 % (11.5-15.5); WBC 22.6 k/uL (3.8-10.6)
[2023-06-14 09:29] LABS: Potassium 4.2 mmol/L (3.5-5.1)
[2023-06-14] MEDS ORDERED: LORazepam 2 MG/ML INJ IV STA (11:01)
[2023-06-14] MEDS: IPRATROPIUM-ALBUTEROL 3 ML NEB INHALATION SCH ×3 (12:06→18:53)
[2023-06-14] MEDS: ENOXAPARIN 40 MG/0.4 ML SYRINGE SQ SCH (12:13)
--- NOTE | 2023-06-14 12:54 | P.PN ---
Subjective Progress Note Date: 06/14/23 Principal diagnosis: Neck abscess MRSA bacteremia and possible septic emboli Patient is a 32-year-old male with a past medical history Nupercaine for IV drug use current everyday smoker presenting to the hospital for evaluation of painful lump to the right side of the posterior neck, patient did have a CT of the neck with evidence of fluid collection suspicious for abscess also with multiple pulmonary nodules suspicious for septic emboli. On today's evaluation that is06/13/2023, the patient continues to be afebrile , the patient is breathing comfortably on room air with no need for supplemental oxygen , the patient denies chest pain shortness of breath or cough, patient denies nausea or vomiting, the patient denies abdominal pain or diarrhea , patient still complaining of pain to the posterior neck area but no drainage White count of 22.6. In 0.98 blood culture with MRSA Objective - Vital Signs Vital signs: Vital Signs Temp 99.4 F 06/14/23 07:05 Pulse 90 06/14/23 07:05 Resp 18 06/14/23 07:05 BP 133/74 06/14/23 07:05 Pulse Ox 95 06/14/23 07:05 FiO2 Intake & Output 06/13/23 06/14/23 06/14/23 18:59 06:59 18:59 Intake Total 2400 Balance 2400 Intake: Intake, IV Titration 1800 Amount Cefepime 2 gm In Sodium 100 Chloride 0.9% 100 ml @ 25 mls/hr IVPB Q8HR [facility] Rx# :[id number] Sodium Chloride 0.9% 1, 1200 000 ml @ 130 mls/hr IV . Q7H42M [facility] Rx#:[id number] Vancomycin 1,500 mg In 500 Sodium Chloride 0.9% 500 ml 500 ml @ 167 mls/hr IVPB Q12H [facility] Rx#: [id number] Oral 600 Other: Voiding Method Toilet Bedside Commode Urinal # Voids 4 3 # Bowel Movements 0 - Exam GENERAL DESCRIPTION: A middle-age male lying in bed in no distress HEENT: Posterior neck area with area of induration swelling and tenderness RESPIRATORY SYSTEM: Unlabored breathing , decreased breath sounds at bases HEART: S1 S2 regular rate and rhythm , ABDOMEN: Soft , no tenderness EXTREMITIES: No edema feet - Labs CBC & Chem 7: 06/14/23 09:00 06/14/23 09:00 Labs: Abnormal Lab Results - Last 24 Hours (Table) 06/13/23 06/13/23 06/14/23 Range/Units 10:19 10:19 09:00 WBC 22.9 H 22.6 H (3.8-10.6) k/uL RBC 4.24 L 4.19 L (4.30-5.90) m/uL Sodium 133 L (137-145) mmol/L Carbon Dioxide 20 L (22-30) mmol/L Glucose 117 H (74-99) mg/dL 06/14/23 Range/Units 09:00 WBC (3.8-10.6) k/uL RBC (4.30-5.90) m/uL Sodium 134 L (137-145) mmol/L Carbon Dioxide 21 L (22-30) mmol/L Glucose (74-99) mg/dL Microbiology - Last 24 Hours (Table) 06/12/23 23:05 Blood Culture Gram Stain - Preliminary Blood Blood Culture - Preliminary Presumptive MRSA 06/12/23 22:50 Blood Culture Gram Stain - Preliminary Blood Assessment and Plan (1) Neck abscess Current Visit: Yes Status: Acute Code(s): L02.11 - CUTANEOUS ABSCESS OF NECK SNOMED Code(s): 8968524 (2) MRSA bacteremia Current Visit: Yes Status: Acute Code(s): R78.81 - BACTEREMIA; B95.62 - METHICILLIN RESIS STAPH INFCT CAUSING DISEASES [facility] SNOMED Code(s): 46205768486962406 Plan: 1patient presented to hospital with right posterior neck pain swelling and induration with evidence of abscess on the CT and also concerning for possible septic emboli in this patient who do have history of IV drug use high clinic suspicious for likely MRSA, gram-negative infection less likely but not entirely excluded 2await echocardiogram , also CT of the chest and MRI of the brain because of his neurological symptoms, blood cultures will be repeated document clearance of bacteremia 3we will continue the patient on vancomycin however discontinue cefepime Discussed with the admitting team Dictation was produced using [employer] dictation software. please excuse any grammatical, word or spelling errors.
--- NOTE | 2023-06-14 14:11 | P.GSCN ---
History of Present Illness Consult date: 06/14/23 History of present illness: CHIEF COMPLAINT: Neck abscess HISTORY OF PRESENT ILLNESS: This is a 32-year-old male who presented to the emergency room with complaints of infection and pain in his right neck with concerns for abscess. Patient has bacteremia and there are concerns for possible septic emboli. Patient has history of IV drug abuse. He initially presented to the ER and was discharged home on Bactrim. Patient had no improvement and presented back to the hospital. He had popped the pimple on his neck with a nail. And at one point there had been some drainage. Patient does have pain and swelling at the right side of the at scalp line on his neck. The pain does go down into the neck. Patient followed by infectious disease. Computed tomography scan of the neck had shown a small to moderate-sized 6 x 2 x 3.0 thin-walled fluid collection in the posterior right neck. Patient seen and examined with Dr. Franco PAST MEDICAL HISTORY: See below PAST SURGICAL HISTORY: See below MEDICATIONS: See below ALLERGIES: See below SOCIAL HISTORY: Heroin, IV Drug Use, Marijuana, Opiates, Prescription Drug Abuse REVIEW OF SYSTEMS: CONSTITUTIONAL: Denies fever or chills. HEENT: Denies blurred vision, vision changes, or eye pain. Denies hemoptysis CARDIOVASCULAR: Denies chest pain or pressure. RESPIRATORY: No shortness of breath. GASTROINTESTINAL: See HPI for pertinent findings HEMATOLOGIC: Denies bleeding disorders. GENITOURINARY: Denies any blood in urine or increased urinary frequency. SKIN: Denies pruitis. Denies rash. PHYSICAL EXAM: VITAL SIGNS: Reviewed GENERAL: Well-developed in no acute distress. HEENT: Posterior right side of neck at the scalp line evidence of erythema, area of induration and tender with palpation. There is scabbing noted. No active drainage. The tenderness of palpation goes down into the right neck. With some swelling noted. ABDOMEN: Soft Nondistended. Nontender NEUROLOGIC: Alert and oriented. Cranial nerves II through XII grossly intact. LABORATORY DATA: WBC 27.8 down to 22.6 Hgb 13.3 platelets 272 Sodium is 134 potassium 4.2 creatinine 0.98 1 positive Blood culture positive for presumptive MRSA IMAGING: Computed tomography scan of the neck shows small to moderate size 6 x 2 x 3 cm thin walled fluid collection in the posterior right neck, developing abscesses and the differential. Multifocal areas of groundglass opacity and pulmonary nodularity consolidation with suspected left apical cavitary lesion. Acute infectious process or septic emboli are suspected. ASSESSMENT: 1. Posterior right neck fluid collection 2. Bacteremia with presumptive MRSA PLAN: -No surgical intervention planned at this time -Continue IV antibiotics per ID service -Recommend to apply warm compresses to the neck -Continue supportive care Thank you for this consultation Physician Cold Roll Inspector note has been reviewed by physician. Signing provider agrees with the documented findings, assessment, and plan of care. Past Medical History Past Medical History: No Reported History Additional Past Medical History / Comment(s): IV drug use (heroine) History of Any Multi-Drug Resistant Organisms: None Reported Past Surgical History: No Surgical Hx Reported Past Psychological History: No Psychological Hx Reported Smoking Status: Current every day smoker Past Alcohol Use History: None Reported Past Drug Use History: Heroin, IV Drug Use, Marijuana, Opiates, Prescription Demond g Abuse - Past Family History Mother Family Medical History: Unable to Obtain (Patient refused to provide family history) Medications and Allergies Home Medications Medication Instructions Recorded Confirmed Type Lidocaine 5% Patch [Lidoderm 5% 1 patch TOPICAL DAILY PRN 14 Days 06/12/2306/13 Rx Patch] #14 patch Sulfamethox-Tmp 800-160Mg [Bactrim 1 tab PO Q12HR 7 Days #14 tab 06/12/23 06/13/23 Rx DS 800-160 mg] Allergies Allergy/AdvReac Type Severity Reaction Status Date / Time No Known Allergies Allergy Verified 06/13/23 10:32 Surgical - Exam Vital Signs Temp Pulse Resp BP Pulse Ox 99 F 85 18 157/76 97 06/12/23 21:54 06/12/23 21:54 06/12/23 21:54 06/12/23 21:54 06/12/23 21:54 Results - Labs 06/14/23 09:00 06/14/23 09:00 Abnormal Lab Results - Last 24 Hours (Table) 06/14/23 06/14/23 Range/Units 09:00 09:00 WBC 22.6 H (3.8-10.6) k/uL RBC 4.19 L (4.30-5.90) m/uL Sodium 134 L (137-145) mmol/L Carbon Dioxide 21 L (22-30) mmol/L Microbiology - Last 24 Hours (Table) 06/12/23 23:05 Blood Culture Gram Stain - Preliminary Blood Blood Culture - Preliminary Presumptive MRSA 06/12/23 22:50 Blood Culture Gram Stain - Preliminary Blood Diabetes panel 06/14/23 06/14/23 Range/Units 06:35 09:00 Sodium 134 L (137-145) mmol/L Potassium 4.2 (3.5-5.1) mmol/L Chloride 106 (98-107) mmol/L Carbon Dioxide 21 L (22-30) mmol/L Creatinine 0.98 (0.66-1.25) mg/dL Pituitary panel 06/14/23 06/14/23 Range/Units 06:35 09:00 Sodium 134 L (137-145) mmol/L Potassium 4.2 (3.5-5.1) mmol/L Chloride 106 (98-107) mmol/L Carbon Dioxide 21 L (22-30) mmol/L Creatinine 0.98 (0.66-1.25) mg/dL Adrenal panel 06/14/23 06/14/23 Range/Units 06:35 09:00 Sodium 134 L (137-145) mmol/L Potassium 4.2 (3.5-5.1) mmol/L Chloride 106 (98-107) mmol/L Carbon Dioxide 21 L (22-30) mmol/L Creatinine 0.98 (0.66-1.25) mg/dL
--- NOTE | 2023-06-14 14:15 | P.PN ---
Subjective Progress Note Date: 06/14/23 (delayed charting seen at 1230) Patient is a 32-year-old male with heroin abuse who presented to the ER with complaints of right neck ulceration with pain and swelling. Patient had been c lean for approximately 4 months when he relapsed 6 days ago. He was seen in the emergency department on ingrown pimple on the back of his neck and he was prescribed Bactrim. A repeat set at less than 24 hours later due to worsening infection. On arrival to the ER his vital signs are within normal limits. Laboratory analysis was remarkable for white blood cell count of 27.8, sodium 135, BUN 24. Chest x-ray showed no acute process. There was concern for worsening cellulitis despite oral antibiotics and is therefore admitted and placed on vancomycin and Zosyn. He was started on IV fluids. The next morning he was having worsening neck pain as well as withdrawal symptoms. Patient seen and examined at bedside. He is doing okay but is still very scared about his overall diagnosis. He reports some discomfort when attempting to take a deep breath. He states his withdrawal feels slightly better today. We again discussed all of his testing results plan for testing for today. Vital signs reviewed General: nontoxic, moderate distress, appears at stated age, + diaphoretic Cardiovascular: S1S2 tachy , no murmur, positive posterior tibial pulse bilateral, Dermatologic: Quarter-sized ulcerative lesion right posterior neck behind the ear with surrounding erythema, warmth, and swelling Lungs: Wheezing bilateral , no accessory muscle use Abdominal: soft, nontender to palpation, no guarding, no appreciable organomegaly Ext: no gross muscle atrophy, no edema b/l lower extremities, no contractures Neuro: CN II-XI grossly intact, no focal neuro deficits Psych: Alert, oriented, appropriate affect Assessment/Plan: Posterior right neck abscess Gram-positive bacteremia, presumptive MRSA Probable septic emboli Sepsis -Repeat blood cultures daily until cleared -Case discussed with infectious disease. Recommend MRI of the brain due visual changes -Check CT of the chest to determine extent of pulmonary septic emboli. -Vancomycin with dosing based on trough. Monitor toxicity by following vancomycin trough levels and creatinine levels -Cefepime 2 g every 12 hours IV piggyback -IV fluids normal saline to 75 mL/h Heroin dependency - Wean Methadone 5 mg 3 times daily as needed for pain -Toradol 15 mg IV every 6 hours when necessary moderate pain -Catapres 0.1 mg by mouth 3 times daily for withdrawal symptoms Vitreous Floaters -Ophthalmology consultation reviewed: Patient only agreed to limited exam. Does not appear to have a serious eye problem. Imaging: None new. awaiting MRI, CT chest, and echo Data Review: T-max in the last 24 hours 102.7 Labs reviewed from today include CBC, lites, and creatinine which were remarkable for white blood cell count 22.6, sodium 134, and carbon dioxide 21. DVT prophylaxis: Lovenox Anticipated discharge date: Pending Clinical Course Anticipated discharge place: Pending Clinical Course This dictation was prepared using [employer] voice recognition software. Though every attempt is made to correct errors during dictation some may still exist. Objective - Vital Signs Vital signs: Vital Signs Temp 98.2 F 06/14/23 11:19 Pulse 80 06/14/23 12:16 Resp 18 06/14/23 11:19 BP 135/75 06/14/23 11:19 Pulse Ox 96 06/14/23 11:19 FiO2 Intake & Output 06/13/23 06/14/23 06/14/23 18:59 06:59 18:59 Intake Total 2400 Balance 2400 Intake: Intake, IV Titration 1800 Amount Cefepime 2 gm In Sodium 100 Chloride 0.9% 100 ml @ 25 mls/hr IVPB Q8HR [facility] Rx# :[id number] Sodium Chloride 0.9% 1, 1200 000 ml @ 130 mls/hr IV . Q7H42M [facility] Rx#:[id number] Vancomycin 1,500 mg In 500 Sodium Chloride 0.9% 500 ml 500 ml @ 167 mls/hr IVPB Q12H [facility] Rx#: [id number] Oral 600 Other: Voiding Method Toilet Bedside Commode Urinal # Voids 4 3 # Bowel Movements 0 - Labs CBC & Chem 7: 06/14/23 09:00 06/14/23 09:00 Labs: Abnormal Lab Results - Last 24 Hours (Table) 06/14/23 06/14/23 Range/Units 09:00 09:00 WBC 22.6 H (3.8-10.6) k/uL RBC 4.19 L (4.30-5.90) m/uL Sodium 134 L (137-145) mmol/L Carbon Dioxide 21 L (22-30) mmol/L Microbiology - Last 24 Hours (Table) 06/12/23 23:05 Blood Culture Gram Stain - Preliminary Blood Blood Culture - Preliminary Presumptive MRSA 06/12/23 22:50 Blood Culture Gram Stain - Preliminary Blood
--- NOTE | 2023-06-14 15:22 | P.CNOR ---
History of Present Illness - [facility] Consult date: 06/14/23 Requesting physician: Maggy Encinas Consult reason: other (neck abscess) History of present illness: Patient is a 32-year-old male with a history of IVDA who presents to the emergency department yesterday with a chief complaint of right-sided neck pain and worsening infection. Patient did present emergency department on 06/12/2023 due to ingrown hair infection and right scalp. Patient was placed on Bactrim discharge home and took one dose before trying to the ER yesterday to worsening infection. Orthopedics was consulted for right neck abscess. Patient denies other previous orthopedic spine surgery. Patient states about a week ago he had noticed in the ingrown hair on the backside of the scalp tried to drain on his own, however, than it became infected and infection and redness spread down his neck near his right shoulder. Patient denies any weakness in the bilateral upper extremities. Patient denies headaches. Patient states most pain is localized to the right side of the neck with some radiation into the shoulder. Patient says he did have some chills. Patient denies chest pain, shortness breath, nausea, vomiting, change in vision,/bladder control. Past Medical History Past Medical History: No Reported History Additional Past Medical History / Comment(s): IV drug use (heroine) History of Any Multi-Drug Resistant Organisms: None Reported Past Surgical History: No Surgical Hx Reported Past Psychological History: No Psychological Hx Reported Smoking Status: Current every day smoker Past Alcohol Use History: None Reported Past Drug Use History: Heroin, IV Drug Use, Marijuana, Opiates, Prescription Drug Abuse - Past Family History Mother Family Medical History: Unable to Obtain (Patient refused to provide family history) Medications and Allergies Home Medications Medication Instructions Recorded Confirmed Type Lidocaine 5% Patch [Lidoderm 5% 1 patch TOPICAL DAILY PRN 14 Days 06/12/23 06/13/23 Rx Patch] #14 patch Sulfamethox-Tmp 800-160Mg [Bactrim 1 tab PO Q12HR 7 Days #14 tab 06/12/23 06/13/23 Rx DS 800-160 mg] Allergies Allergy/AdvReac Type Severity Reaction Status Date / Time No Known Allergies Allergy Verified 06/13/23 10:32 Physical Examination Inspection:, Swelling and erythema present along the base of the occiput on the right side posterior cervical spine. There is some scabbing present. Negative for any active drainage. The erythema and swelling seems to be extending distally and laterally toward the right shoulder. Sensation: Equal, symmetric, bilaterally intact at the upper and lower extremities Palpation: Moderate to severe tenderness to palpation directly over the area of erythema. Nontender to palpation throughout rest of exam. Range of motion: Patient has full range of motion throughout bilateral upper and lower extremities on exam. Motor: 4+/5 in all major motor groups in bilateral upper extremity is in exam. Neurovascular: Radial pulses intact, 2+ bilaterally. Cap refill under 3 seconds in digits of upper extremities. Special tests: Negative Homans bilaterally. Negative Tina bilaterally. Negative clonus bilaterally. Results - Labs Labs: Abnormal Lab Results - Last 24 Hours (Table) 06/14/23 06/14/23 Range/Units 09:00 09:00 WBC 22.6 H (3.8-10.6) k/uL RBC 4.19 L (4.30-5.90) m/uL Sodium 134 L (137-145) mmol/L Carbon Dioxide 21 L (22-30) mmol/L Microbiology - Last 24 Hours (Table) 06/12/23 23:05 Blood Culture Gram Stain - Preliminary Blood Blood Culture - Preliminary Presumptive MRSA 06/12/23 22:50 Blood Culture Gram Stain - Preliminary Blood H & H 06/12/23 06/13/23 06/14/23 Range/Units 23:11 10:19 09:00 Hgb 14.4 13.4 13.3 (13.0-17.5) gm/dL Hct 43.9 40.2 40.9 (39.0-53.0) % Result Diagrams: 06/14/23 09:00 06/14/23 09:00 - Diagnostic results CT scan - cervical: report reviewed, image reviewed (Soft tissue neck CT was performed. There is evidence of fluid collection measuring 6 x 3 x 2 cm with a possibly developing abscess.) Assessment and Plan Assessment: 1. Cellulitis right sided neck; developing abscess right-side neck Plan: 1. Cellulitis right sided neck; developing abscess right-side neck - patient stable at bedside this afternoon. Soft tissue neck CT was performed. There is evidence of fluid collection measuring 6 x 3 x 2 cm with a possible developing abscess. Patient does not present with any significant weakness or symptoms d own the arm on exam. Due to the elevated white counts and history of IVDA, orthopedically we are recommending MRI of cervical spine for further intervention. We are recommending orthopedic surgical intervention in the form of incision and drainage posterior cervical spine. Surgery has been scheduled for tomorrow. Patient to be nothing by mouth after midnight tonight. We'll continue to follow patient during his stay in hospital. We recommend continue antibiotic use as well as oral pain medications as needed. 2. Appreciate medical management 3. Pain management - Tylenol; methadone; Toradol 4. GI prophylaxis recs 5. DVT prophylaxis - Lovenox 6. PT/OT - WBAT 7. Appreciate consult Time with Patient: Less than 30
--- NOTE | 2023-06-14 15:57 | CT ---
EXAMINATION TYPE: CT chest w con DATE OF EXAM: 06/14/2023 COMPARISON: None HISTORY: Septic emboli CT DLP: 327.20 mGycm, Automated exposure control for dose reduction was used. CONTRAST: Performed injected with 93mL mL of Isovue 300. TECHNIQUE: Axial images were obtained at 5 mm thick sections. Reconstructed images are reviewed on [employer] computer in the coronal plane. FINDINGS: Portion of the thyroid visualized is normal. There is a 1.0 cm nodule medial right apex. Series 4 image 11. There appears to be a cavitary lesion within the posterior left lung apex measuring 2.0 cm. Series 4 image 14. There is a complex nodule in the lateral right lung 3.2 cm within the adjacent daughter nodule measuring 1.2 cm. Series 4 image 2 4. Nodules in the lateral left lung measuring 1.2 cm series 4 image 25. There is an irregular consoli dation in the posterior left lung measuring 3.3 x 2.2 cm. Series 4 image 36. There is a peripheral 0. 9 cm nodule right lower lobe superior segment. Series 4 image 34. There is a loculated pleural effusion on the right with some adjacent infiltrate likely atelectasis. No enlarged mediastinal or hilar adenopathy is evident. The ascending aorta diameter at the level of the main pulmonary artery is 2.9 cm. The main pulmonary artery diameter at the bifurcation is 3.[address] sections are obtained through the upper abdomen. Abdomen is essentially unremarkable. IMPRESSION: 1. Multiple bilateral lung nodules and masses. Additional workup for neoplasm is recommended. 2. Additional consolidation and infiltrates discussed above could reflect infection or neoplasm. 3. Loculated pleural effusion right lung base.
[2023-06-14] MEDS: PHENYLEPHRINE 2.5% OPHTH DRP 2ML BOTH EYES SCH (18:38)
[2023-06-14] MEDS: ACETAMINOPHEN TAB 500 MG TAB PO PRN (19:37)
[2023-06-15] MEDS ORDERED: VANCOMYCIN TROUGH DUE 1 EACH MISC MISCELLANE ONE
[2023-06-15] MEDS: VANCOMYCIN 1,500 MG in SODIUM CHLORIDE 0.9% 500 ML 500 ML IVPB SCH ×3 (01:16→21:50)
[2023-06-15] MEDS: KETOROLAC 15 MG/ML 1 ML VIAL IVP PRN ×3 (01:48→22:49)
[2023-06-15] MEDS: cloNIDine HCL 0.1 MG TAB PO PRN ×2 (01:50→21:49)
[2023-06-15] MEDS: SODIUM CHLORIDE 0.9% 1,000 ML IV SCH ×3 (06:17→23:06)
[2023-06-15] MEDS: METHADONE 5 MG TAB PO PRN ×2 (06:20→21:47)
--- NOTE | 2023-06-15 07:03 | P.CNPUL ---
History of Present Illness Consult date: 06/15/23 Requesting physician: Maggy Encinas Reason for consult: pleural effusion Chief complaint: Generalized weakness, fever History of present illness: I am seeing this patient in new consultation today 06/15/2023 after he presented back on June 13 with concerns of right neck abscess patient is a 32-year-old white male with past medical history significant for IV drug abuse, hepatitis C, and is a current smoker. Patient originally presented to the emergency room on June 12 with concerns of right neck cellulitis/abscess. He says that it looked like a "spider bite". He was originally discharged home on Bactrim. He did try and drain the abscess with a nail and razor blade at [facility]. He progressively became more weak and had subjective fevers at home. He continues to use IV heroin. He did come back to the emergency room on June 13. CT of the neck shows a 6 x 2 x 3 cm thin walled fluid collection within the right neck. Blood cultures are positive for presumptive MRSA. Chest CT shows multiple bilateral pulmonary cavitating nodules and masses. Considering the patient's history, these are concerning for septic emboli. There is a loculated right pleural effusion at the lung base. A 2-D transthoracic echocardiogram is pending. Patient has been started on IV vancomycin. CBC from yesterday shows a WBC count of 22.6, hemoglobin 13.3, hematocrit 40.9, platelets 272. BMP from admission shows a sodium 133, potassium 4.3, chloride 106, serum bicarb 20, BUN 19, creatinine 1.07, glucose 117. Patient is currently sitting up in bed, on room air, in no acute distress. He continues to be febrile with a T-max of 102.6F. Patient is hemodynamically stable at this time. Review of Systems REVIEW OF SYSTEMS: CONSTITUTIONAL: Denies any recent significant weight loss or weight gain. Admits generalized fatigue and weakness. Admits subjective fevers. EYES: Denies change in vision. EARS, NOSE, MOUTH, THROAT: Denies headaches, denies sore throat. CARDIOVASCULAR: Denies radiating chest pain, palpitations or syncopal episodes. RESPIRATORY: Denies shortness of breath, cough, congestion or hemoptysis. Admits atypical chest pain that moves locations. GASTROINTESTINAL: Denies change in appetite, abdominal pain, nausea and vomiting, or diarrhea GENITOURINARY: Denies hematuria, denies infections. MUSKULOSKELETAL: Denies pain, denies swelling. INTEGUMENTARY: Denies rash, denies eczema. admits right neck abscess, described as "spider bite" NEUROLOGICAL: Denies recent memory loss, no recent seizure activity. PSYCHIATRIC: Denies anxiety, denies depression. HEMATOLOGIC/LYMPHATIC: Denies anemia, denies enlarged lymph node Past Medical History Past Medical History: No Reported History Additional Past Medical History / Comment(s): IV drug use (heroine) History of Any Multi-Drug Resistant Organisms: None Reported Past Surgical History: No Surgical Hx Reported Past Psychological History: No Psychological Hx Reported Smoking Status: Current every day smoker Past Alcohol Use History: None Reported Past Drug Use History: Heroin, IV Drug Use, Marijuana, Opiates, Prescription Drug Abuse - Past Family History Mother Family Medical History: Unable to Obtain (Patient refused to provide family history) Medications and Allergies Home Medications Medication Instructions Recorded Confirmed Type Lidocaine 5% Patch [Lidoderm 5% 1 patch TOPICAL DAILY PRN 14 Days 06/12/23 06/13/23 Rx Patch] #14 patch Sulfamethox-Tmp 800-160Mg [Bactrim 1 tab PO Q12HR 7 Days #14 tab 06/12/23 Rx DS 800-160 mg] Allergies Allergy/AdvReac Type Severity Reaction Status Date / Time No Known Allergies Allergy Verified 06/13/23 10:32 Physical Exam Vitals: Vital Signs Temp Pulse Pulse Resp BP Pulse Ox 06/15/23 01:39 99.4 F 79 18 155/74 97 06/14/23 21:12 99.4 F 06/14/23 20:10 18 06/14/23 19:09 102.6 F H 80 18 146/63 95 06/14/23 15:59 80 06/14/23 15:41 76 06/14/23 12:16 80 06/14/23 12:05 78 06/14/23 11:19 98.2 F 72 18 135/75 96 06/14/23 07:05 99.4 F 90 18 133/74 95 Intake and Output 06/14/23 06/14/23 06/15/23 14:59 22:59 06:59 Intake Total 1800 2000 Balance 1800 2000 Intake: Intake, IV Titration 1800 1400 Amount Cefepime 2 gm In Sodium 100 Chloride 0.9% 100 ml @ 25 mls/hr IVPB Q8HR [facility] Rx# :[id number] Sodium Chloride 0.9% 1, 1200 900 000 ml @ 75 mls/hr IV . [id number] [facility] Rx#:[id number] Vancomycin 1,500 mg In 500 500 Sodium Chloride 0.9% 500 ml 500 ml @ 167 mls/hr IVPB Q12H [facility] Rx#: [id number] Oral 600 Other: Voiding Method Toilet Bedside Commode Urinal # Voids 2 GENERAL EXAM: Alert, 32-year-old white male, comfortable in no apparent distress. HEAD: Normocephalic and atraumatic EYES: Normal reaction of pupils, equal size. NOSE: Clear with pink turbinates. THROAT: No erythema or exudates. NECK: No masses, no JVD. right neck abscess that is hard with a small fluctuant center. CHEST: No chest wall deformity. LUNGS: Equal air entry with no crackles, wheeze, rhonchi or dullness. on room air. No conversational dyspnea or accessory muscle use.. CVS: S1 and S2 normal with no audible murmur, regular rhythm. No extra heart sounds ABDOMEN: No hepatosplenomegaly, active bowel sounds, no guarding or rigidity. SPINE: No scoliosis or deformity SKIN: No rashes CENTRAL NERVOUS SYSTEM: No focal deficits, tone is normal in all 4 extremities. EXTREMITIES: There is no peripheral edema, clubbing, or cyanosis. Peripheral pulses are intact. Results - Laboratory Findings CBC and BMP: 06/14/23 09:00 06/14/23 09:00 Abnormal lab findings: Abnormal Labs 06/12/23 06/12/23 06/13/23 23:11 23:11 10:19 WBC 27.8 H 22.9 H RBC 4.24 L Neutrophils # 25.2 H Lymphocytes # 0.8 L Monocytes # 1.2 H Sodium 135 L Carbon Dioxide BUN 24 H Glucose 117 H AST 65 H Albumin 3.4 L 06/13/23 06/14/23 06/14/23 10:19 09:00 09:00 WBC 22.6 H RBC 4.19 L Neutrophils # Lymphocytes # Monocytes # Sodium 133 L 134 L Carbon Dioxide 20 L 21 L BUN Glucose 117 H AST Albumin - Diagnostic Findings CT scan - chest: image reviewed Assessment and Plan Assessment: Right neck abscess, scheduled for incision and drainage today, CT of the neck shows a 6 x 2 x 3 cm thin walled fluid collection within the right neck. MRSA bacteremia Leukocytosis, secondary to above Multiple cavitating pulmonary nodules and masses, concerning for septic emboli. Doubt malignancy, due to patient's age. Loculated right pleural effusion History of hepatitis C Polysubstance abuse and IV drug abuse Current tobacco smoker Plan: Patient's medications, labs and imaging reviewed On room air Patient has a transthoracic echocardiogram pending, there is concern for possible infective endocarditis Patient was started on IV vancomycin There is a plan for incision and drainage of right neck abscess today Obtain chest ultrasound, for possible thoracentesis We will continue to follow, and further recommendations are forthcoming I have personally seen and examined the patient, performed the documentation and the assessment and plan as written. Number of minutes spent on the visit:20 Time with Patient: Greater than 30
--- NOTE | 2023-06-15 07:18 | CA ---
Transthoracic Echo Report Name: Baltazar Sanabria Age: 32 Gender: M : 1990 Exam Date: 06/14/2023 14:08 Exam Location: [facility] Ht (in): 69 Wt (lb): 170 Ordering Physician: Maggy Encinas DO Attending/Referring Phys: [id number], [facility] Yamila Breaux RDCS Procedure CPT: Indications: Endocarditis Cardiac Hx: Technical Quality: Good Contrast 1: Total Dose (mL): Contrast 2: Total Dose (mL): MEASUREMENTS (Male / Female) Normal Values 2D ECHO LV Diastolic Diameter PLAX 5.2 cm 4.2 - 5.9 / 3.9 - 5.3 cm LV Systolic Diameter PLAX 3.1 cm IVS Diastolic Thickness 1.0 cm 0.6 - 1.0 / 0.6 - 0.9 cm LVPW Diastolic Thickness 0.9 cm 0.6 - 1.0 / 0.6 - 0.9 cm LV Relative Wall Thickness 0.4 RV Internal Dim ED PLAX 3.4 cm LA Systolic Diameter LX 3.7 cm 3.0 - 4.0 / 2.7 - 3.8 cm LV Diastolic Volume MOD BP 116.5 cm??? 67 - 155 / 56 - 104 cm??? LV Systolic Volume MOD BP 32.1 cm??? 22 - 58 / 19 - 49 cm??? LV Ejection Fraction MOD BP 72.4 % >= 55 % LV Diastolic Volume MOD 4C 123.8 cm??? LV Systolic Volume MOD 4C 27.0 cm??? LV Ejection Fraction MOD 4C 78.2 % LV Diastolic Length 4C 8.4 cm LV Systolic Length 4C 6.1 cm LV Diastolic Volume MOD 2C 104.9 cm??? LV Systolic Volume MOD 2C 38.0 cm??? LV Ejection Fraction MOD 2C 63.8 % LV Diastolic Length 2C 8.8 cm LV Systolic Length 2C 6.7 cm LA Volume 62.1 cm??? 18 - 58 / 22 - 52 cm??? M-MODE Aortic Root Diameter MM 3.2 cm MV E Point Septal Separation 0.6 cm AV Cusp Separation MM 2.3 cm DOPPLER AV Peak Velocity 163.5 cm/s AV Peak Gradient 10.7 mmHg MV Area PHT 3.1 cm??? Mitral E Point Velocity 108.1 cm/s Mitral A Point Velocity 78.3 cm/s Mitral E to A Ratio 1.4 MV Deceleration Time 242.7 ms MV E' Velocity 13.0 cm/s Mitral E to MV E' Ratio 8.3 TR Peak Velocity 260.1 cm/s TR Peak Gradient 27.1 mmHg Right Ventricular Systolic Press 32.1 mmHg FINDINGS Left Ventricle Left ventricular ejection fraction is estimated at 55-60 %. Left ventricular cavity size normal. Left ventricular wall thickness normal. Right Ventricle Mild right ventricular dilatation. Right ventricular systolic pressure within normal limits. Right Atrium Normal right atrial size. Left Atrium Mildly increased left atrial volume. Mildly increased left atrial area. Mitral Valve Structurally normal mitral valve. Trace mitral regurgitation. Mild thickening of mitral valve leaflets Aortic Valve Trileaflet aortic valve. No aortic valve stenosis or regurgitation. Tricuspid Valve Structurally normal tricuspid valve. Trace to mild tricuspid regurgitation. Pulmonic Valve Structurally normal pulmonic valve. Trace pulmonic regurgitation. Pericardium No pericardial effusion. Aorta Normal size aortic root and proximal ascending aorta. CONCLUSIONS Normal LV size and systolic function. Minimal mitral and tricuspid regurgitation. Nonspecific thickening of mitral valve leaflets. No pericardial effusion. No pulmonary hypertension Previewed by: Dr. Hong Mcclure MD (Electronically Signed) Final Date: 15 June 2023 07:17
[2023-06-15] MEDS: IPRATROPIUM-ALBUTEROL 3 ML NEB INHALATION SCH ×4 (08:03→20:16)
[2023-06-15] MEDS: ENOXAPARIN 40 MG/0.4 ML SYRINGE SQ SCH (08:29)
[2023-06-15] MEDS ORDERED: VANCOMYCIN 1,500 MG in SODIUM CHLORIDE 0.9% 500 ML 500 ML IVPB SCH (09:00)
--- NOTE | 2023-06-15 09:08 | US ---
EXAMINATION TYPE: US chest DATE OF EXAM: 06/15/2023 COMPARISON: CT CLINICAL INDICATION: Male, 32 years old with history of right sided loculated pleural effusion; Right side TECHNIQUE: Targeted ultrasound of the posterior lower right hemithorax Right side NOT marked for possible thoracentesis outside the dept. Loculated fluid. Pulmonologists are able to review the images in the patient?s EMR. IMPRESSIONS: Small loculated pleural effusion.
[2023-06-15 09:29] LABS: Glucose,Whole Blood 116 mg/dL (70-110)
[2023-06-15] MEDS ORDERED: LORazepam 2 MG/ML INJ ONE (11:39)
[2023-06-15] MEDS: NICOTINE 21MG/24HR PATCH TRANSDERM SCH ×2 (12:03→17:02)
[2023-06-15 12:26] LABS: HCT 41.7 % (39.6-50.0); HGB 13.7 d/dL (13.0-17.0); MCH 31.1 pg (27.0-32.0); MCHC 32.9 d/dL (32.0-37.0); MCV 94.6 FL (80.0-97.0); Mean Platelet Volume 11.3 FL (9.5-12.2); NRBC Per 100 WBC 0 X 10*3/uL (0.00-0.01); Platelet Count 274 X 10*3/uL (140-440); RBC 4.41 X 10*6/uL (4.40-5.60); RDW 13.3 % (11.5-14.5); WBC 21.95 X 10*3/uL (4.50-10.00)
[2023-06-15 13:13] LABS: Erythrocyte Sedimentation Rate 70 mm/Hr (0-15)
--- NOTE | 2023-06-15 16:09 | P.PN ---
Subjective Progress Note Date: 06/15/23 Patient is a 32-year-old male with heroin abuse who presented to the ER with complaints of right neck ulceration with pain and swelling. Patient had been clean for approximately 4 months when he relapsed 6 days ago. He was seen in the emergency department on ingrown pimple on the back of his neck and he was prescribed Bactrim. A repeat set at less than 24 hours later due to worsening infection. On arrival to the ER his vital signs are within normal limits. Laboratory analysis was remarkable for white blood cell count of 27.8, sodium 135, BUN 24. Chest x-ray showed no acute process. There was concern for worsening cellulitis despite oral antibiotics and is therefore admitted and placed on vancomycin and Zosyn. He was started on IV fluids. The next morning he was having worsening neck pain as well as withdrawal symptoms. Patient found to be bacteremic with chest CT concerning for septic emboli. ID, pulmonology, orthopedic surgery following. Patient currently in medical ICU. Patient seen and examined at bedside. No acute events overnight. Vital signs reviewed General: nontoxic, NAD, appears at stated age, + diaphoretic Cardiovascular: S1S2 tachy , no murmur, positive posterior tibial pulse bilateral, Dermatologic: Quarter-sized ulcerative lesion right posterior neck behind the ear with surrounding erythema, warmth, and swelling Lungs: Wheezing bilateral , no accessory muscle use Abdominal: soft, nontender to palpation, no guarding, no appreciable org anomegaly Ext: no gross muscle atrophy, no edema b/l lower extremities, no contractures Neuro: CN II-XI grossly intact, no focal neuro deficits Psych: Alert, oriented, appropriate affect Assessment/Plan: Posterior right neck abscess Gram-positive bacteremia, presumptive MRSA Bilateral lung nodules with mass, appears more so like septic emboli Sepsis Loculated right lung base pleural effusion -Repeat blood cultures daily until cleared -Case discussed with ID, in light of normal TTE and a high suspicion for endocarditis, a MARCO was ordered -Patient pending I&D of neck abscess MRI brain and MRI C-spine pending -Vancomycin with dosing based on trough. Monitor toxicity by following vancomycin trough levels and creatinine levels -IV fluids normal saline to 75 mL/h -Pulmonology note reviewed, continue current management, patient currently in the medical ICU Heroin dependency - Wean Methadone 5 mg 3 times daily as needed for pain -Toradol 15 mg IV every 6 hours when necessary moderate pain -Catapres 0.1 mg by mouth 3 times daily for withdrawal symptoms Vitreous Floaters -Ophthalmology consultation reviewed: Patient only agreed to limited exam. Does not appear to have a serious eye problem. Imaging: TTE, no vegetations Chest ultrasound shows small loculated effusion Data Review: WBC 21.95, CRP 20.9, ESR 70 DVT prophylaxis: Lovenox Anticipated discharge date: Pending Clinical Course Anticipated discharge place: Pending Clinical Course Objective - Vital Signs Vital signs: Vital Signs Temp 99.9 F H 06/15/23 12:00 Pulse 66 06/15/23 14:30 Resp 16 06/15/23 14:30 BP 162/100 06/15/23 14:30 Pulse Ox 94 L 06/15/23 14:30 FiO2 Intake & Output 06/14/23 06/15/23 06/15/23 18:59 06:59 18:59 Intake Total 1800 2000 875 Balance 1800 2000 875 Intake: IV 375 Sodium Chloride 0.9% 1, 375 000 ml @ 75 mls/hr IV . [id number] [facility] Rx#:[id number] Intake, IV Titration 1800 1400 500 Amount Cefepime 2 gm In Sodium 100 Chloride 0.9% 100 ml @ 25 mls/hr IVPB Q8HR [facility] Rx# :[id number] Sodium Chloride 0.9% 1, 1200 900 000 ml @ 75 mls/hr IV . [id number] [facility] Rx#:[id number] Vancomycin 1,500 mg In 500 500 500 Sodium Chloride 0.9% 500 ml 500 ml @ 167 mls/hr IVPB Q12H [facility] Rx#: [id number] Oral 600 Other: Voiding Method Toilet Toilet Bedside Commode Bedside Commode Urinal Urinal # Voids 2 1 # Bowel Movements 1 - Labs CBC & Chem 7: 06/15/23 07:08 06/14/23 09:00 Labs: Abnormal Lab Results - Last 24 Hours (Table) 06/15/23 06/15/23 06/15/23 Range/Units 07:08 07:08 09:27 WBC 21.95 H (4.50-10.00) X 10*3/uL ESR 70 H (0-15) mm/Hr POC Glucose (mg/dL) 116 H (70-110) mg/dL C-Reactive Protein 20.90 H (0.00-0.80) mg/dL Microbiology - Last 24 Hours (Table) 06/12/23 23:05 Blood Culture Gram Stain - Final Blood Blood Culture - Final Methicillin resist S. aureus 06/12/23 22:50 Blood Culture Gram Stain - Final Blood Blood Culture - Final Methicillin resist S. aureus
[2023-06-15] MEDS ORDERED: LORazepam 2 MG/ML INJ IV STA (16:42)
--- NOTE | 2023-06-15 18:12 | MR ---
EXAMINATION TYPE: MR brain/cspine wo/w DATE OF EXAM: 06/15/2023 1:34 PM CLINICAL INDICATION:Male, 32 years old with history of emboli, visual changes; PHH, Abscess in neck, emboli, visual changes. COMPARISON: CT brain 06/13/2023. TECHNIQUE: Multi planar, multi sequence imaging was performed through the brain including: T1, T2, Inversion rec overy, Diffusion weighted imaging, and gradient echo imaging. No gadolinium was given. Multi planar, multi sequence imaging was performed utilizing: T1-weighted, T2-weighted, and turbo inv ersion recovery imaging of the cervical spine. IV Contrast: 7.5 cc Gadavist FINDINGS: The cole-white junctions, ventricular system, and cisterns appear unremarkable. There is a single whi te matter change focus within the right frontal lobe visualized.. Diffusion-weighted imaging shows no evidence of restricted diffusion. The susceptibility weighted images do not reveal any evidence for micro-hemorrhage. The bone marrow signal is within normal limits. Paranasal sinuses and mastoid air cells: Mucosal thickening of the left maxillary sinus with retentio n cyst. Visualized orbits: Orbital contents are intact. Alignment: The cervical vertebral bodies have preserved heights. Alignment is within normal limits gi ange patient positioning. Bones: Bone signal is within normal limits. No abnormal bone marrow edema on inversion recovery seque nces. Minimal degeneration changes throughout the spine with osteophyte formation and disc space narr owing. Cord: The spinal cord is unremarkable with regards to their signal intensity and morphology. Discs: Intervertebral disc signal is maintained. C2-C3: No significant disc pathology. The spinal canal is patent. No neural foraminal stenosis. C3-C4: No significant disc pathology. The spinal canal is patent. Bilateral facet and uncovertebral joint arthropathy are present with mild bilateral neural foraminal stenosis. C4-C5: No significant disc pathology. The spinal canal is patent. No neural foraminal stenosis. C5-C6: No significant disc pathology. The spinal canal is patent. Bilateral facet and uncovertebral joint arthropathy are present with mild bilateral neural foraminal stenosis. C6-C7: No significant disc pathology. The spinal canal is patent. Bilateral facet and uncovertebral joint arthropathy are present with mild left neural foraminal stenosis. The right neural foramen is p atent. C7-T1: No significant disc pathology. The spinal canal is patent. No neural foraminal stenosis. Other: High T2 streaky edema within the right posterior neck compatible with provided history of infe ction. There is postcontrast enhancement around a central fluid collection seen in extra sequences th rough the neck. This area measures roughly 3.5 x 1.2 cm. No evidence of extension into the intracrani al structures. Fluid collection is only partially in the [id number] on brain and spine imaging. IMPRESSION: 1. Right posterior neck phlegmonous changes and early abscess. No evidence for extension into the b rain. No evidence for osteitis. 2. No evidence of intracranial mass or acute/subacute infarct. No abnormal intracranial postcontrast enhancement. 3. Minimal minimal nonspecific white matter changes. 4. No evidence for disc herniation or significant spinal canal stenosis. 5. Mild disc degeneration with associated osteoarthritic changes.
[2023-06-15] MEDS ORDERED: ONDANSETRON 4 MG/2 ML VIAL ONE (19:30)
[2023-06-15] MEDS ORDERED: HYDROmorphone (PF) 1 MG/ML ONE (19:30)
[2023-06-15] MEDS ORDERED: SUCCINYLCHOLINE CHLORIDE 200 MG/10 ML VIAL IV ONE (19:30)
[2023-06-15] MEDS ORDERED: LIDOCAINE 2% INJ 20 MG/ML (2 ML VIAL) ONE (19:30)
[2023-06-15] MEDS ORDERED: PROPOFOL 10 MG/ML 20 ML VIAL IV ONE (19:30)
[2023-06-15] MEDS ORDERED: fentaNYL (PF) 50 MCG/ML 2 ML AMP ONE (19:30)
[2023-06-15] MEDS ORDERED: SODIUM CHLORIDE 0.9% 1,000 ML IV ONE ×2 (19:37→20:10)
--- NOTE | 2023-06-15 20:32 | P.PN ---
Subjective Progress Note Date: 06/15/23 Principal diagnosis: Neck abscess MRSA bacteremia and possible septic emboli Patient is a 32-year-old male with a past medical history Nupercaine for IV drug use current everyday smoker presenting to the hospital for evaluation of painful lump to the right side of the posterior neck, patient did have a CT of the neck with evidence of fluid collection suspicious for abscess also with multiple pulmonary nodules suspicious for septic emboli. On today's evaluation that is 06/15/2023, the patient is afebrile, the patient is breathing comfortably on 2 L nasal cannula oxygen, the patient denies chest pain shortness of breath or cough , The Patient denies nausea vomiting no abdominal pain or diarrhea, denies any worsening pain to the neck area or any drainage. Patient white count of 21.95 vancomycin trough of 8.5 CRP is 20.90 blood culture with MRSA. Objective - Vital Signs Vital signs: Vital Signs Temp 99.1 F 06/15/23 07:37 Pulse 73 06/15/23 07:37 Resp 18 06/15/23 07:37 BP 152/72 06/15/23 07:37 Pulse Ox 93 L 06/15/23 07:37 FiO2 Intake & Output 06/14/23 06/15/23 06/15/23 18:59 06:59 18:59 Intake Total 1800 2000 Balance 1800 2000 Intake: Intake, IV Titration 1800 1400 Amount Cefepime 2 gm In Sodium 100 Chloride 0.9% 100 ml @ 25 mls/hr IVPB Q8HR [facility] Rx# :[id number] Sodium Chloride 0.9% 1, 1200 900 000 ml @ 75 mls/hr IV . [id number] [facility] Rx#:[id number] Vancomycin 1,500 mg In 500 500 Sodium Chloride 0.9% 500 ml 500 ml @ 167 mls/hr IVPB Q12H [facility] Rx#: [id number] Oral 600 Other: Voiding Method Toilet Toilet Bedside Commode Bedside Commode Urinal Urinal # Voids 2 - Exam GENERAL DESCRIPTION: A middle-age male lying in bed in no distress HEENT: Posterior neck area with area of induration swelling and tenderness RESPIRATORY SYSTEM: Unlabored breathing , decreased breath sounds at bases HEART: S1 S2 regular rate and rhythm , ABDOMEN: Soft , no tenderness EXTREMITIES: No edema feet - Labs CBC & Chem 7: 06/15/23 07:08 06/14/23 09:00 Labs: Abnormal Lab Results - Last 24 Hours (Table) 06/15/23 Range/Units 09:27 POC Glucose (mg/dL) 116 H (70-110) mg/dL Microbiology - Last 24 Hours (Table) 06/12/23 23:05 Blood Culture Gram Stain - Preliminary Blood Blood Culture - Preliminary Presumptive MRSA Assessment and Plan (1) Neck abscess Current Visit: Yes Status: Acute Code(s): L02.11 - CUTANEOUS ABSCESS OF NECK SNOMED Code(s): 7100298 (2) MRSA bacteremia Current Visit: Yes Status: Acute Code(s): R78.81 - BACTEREMIA; B95.62 - METHICILLIN RESIS STAPH INFCT [facility] SNOM[facility] Code(s): 77738648187791378 Plan: 1patient presented to hospital with right posterior neck pain swelling and induration with evidence of abscess on the CT and also concerning for possible septic emboli in this patient who do have history of IV drug use [facility] for likely MRSA, gram-negative infection less likely but not entirely excluded 2CT of the chest did show some multiple nodules suspicious for septic emboli echocardiogram did not show any vegetation MRI of the brain is currently pending. 3patient will benefit from a MARCO as clinical suspicious for infective endocarditis to be high on the list. 4patient to continue the vancomycin pharmacy to dose with target trough of 15 dose need to be adjusted up to keep the trough around 15 and will watch his kidney function closely. Dictation was produced using [employer] dictation software. please excuse any grammatical, word or spelling errors.
[2023-06-15] MEDS ORDERED: ALBUTEROL NEBULIZED 2.5 MG/3 ML INHALATION ONE (20:40)
[2023-06-16] MEDS: ACETAMINOPHEN TAB 500 MG TAB PO PRN ×2 (04:29→20:44)
[2023-06-16] MEDS: METHADONE 5 MG TAB PO PRN ×3 (04:29→20:45)
[2023-06-16] MEDS: VANCOMYCIN 1,500 MG in SODIUM CHLORIDE 0.9% 500 ML 500 ML IVPB SCH ×3 (04:30→20:54)
[2023-06-16 05:30] LABS: Basophils # (A) 0.1 k/uL (0-0.2); Basophils % (A) 0 %; Eosinophils # (A) 0.1 k/uL (0-0.7); Eosinophils % (A) 1 %; HCT 40.7 % (39.0-53.0); HGB 13.7 gm/dL (13.0-17.5); Lymphocytes # (A) 1.8 k/uL (1.0-4.8); Lymphocytes % (A) 9 %; MCHC 33.6 g/dL (31.0-37.0); MCV 98.1 fL (80.0-100.0); Monocytes # (A) 1.8 k/uL (0-1.0); Monocytes % (A) 9 %; Neutrophils # (A) 15.3 k/uL (1.3-7.7); Neutrophils % (A) 77 %; Platelet Count 185 k/uL (150-450); RBC 4.15 m/uL (4.30-5.90); WBC 19.7 k/uL (3.8-10.6)
[2023-06-16] MEDS: SODIUM CHLORIDE 0.9% 1,000 ML IV SCH ×2 (06:07→11:11)
[2023-06-16] MEDS: IPRATROPIUM-ALBUTEROL 3 ML NEB INHALATION SCH ×4 (08:14→21:23)
[2023-06-16 09:15] LABS: African American GFR (CKD) >90 (>60 ml/min/1.73 sqM); Anion Gap 6 mmol/L; Blood Urea Nitrogen 17 mg/dL (9-20); Calcium 8.1 mg/dL (8.4-10.2); Carbon Dioxide 22 mmol/L (22-30); Chloride 104 mmol/L (98-107); Glucose 102 mg/dL (74-99); Non-African American GFR(CKD) >90 (>60 ml/min/1.73 sqM); Sodium 132 mmol/L (137-145)
[2023-06-16 09:18] LABS: Potassium 4.7 mmol/L (3.5-5.1)
[2023-06-16] MEDS ORDERED: fentaNYL (PF) 50 MCG/ML 2 ML AMP IVP ONE (09:59)
[2023-06-16] MEDS ORDERED: MIDAZOLAM 1 MG/ML 5 ML VIAL IV STA ×2 (09:59→10:44)
[2023-06-16] MEDS ORDERED: BENZOCAINE SPRAY 1 CAN MUCOUS MEM ONE (10:07)
[2023-06-16] MEDS: ENOXAPARIN 40 MG/0.4 ML SYRINGE SQ SCH (10:10)
[2023-06-16] MEDS: NICOTINE 21MG/24HR PATCH TRANSDERM SCH (10:11)
--- NOTE | 2023-06-16 10:23 | P.PN ---
Subjective Progress Note Date: 06/16/23 Principal diagnosis: Neck abscess Patient was seen at bedside this morning lying in the summer, position in the ICU. Dressing is present over right posterior cervical spine. Patient says his pain is controlled at this time. Patient is able to move all extremities at this time. Patient denies any other changes at this time. Patient denies chest pain, fever, nausea, vomiting, change in vision, loss of bowel/bladder control. Objective - Vital Signs Vital signs: Vital Signs Temp 99.2 F 06/16/23 08:00 Pulse 62 06/16/23 09:00 Resp 18 06/16/23 09:00 BP 144/73 06/16/23 09:00 Pulse Ox 94 L 06/16/23 09:00 FiO2 Intake & Output 06/15/23 06/16/23 06/16/23 18:59 06:59 18:59 Intake Total 1675 1850 225 Output Total 900 753 Balance 775 1097 225 Weight 85 kg Intake: IV 675 1850 225 Sodium Chloride 0.9% 1, 675 1250 225 000 ml @ 75 mls/hr IV . [id number] [facility] Rx#:[id number] Intake, IV Titration 1000 Amount Vancomycin 1,500 mg In 500 Sodium Chloride 0.9% 500 ml 500 ml @ 167 mls/hr IVPB Q12H [facility] Rx#: [id number] Vancomycin 1,500 mg In 500 Sodium Chloride 0.9% 500 ml 500 ml @ 167 mls/hr IVPB Q8H [facility] Rx#: [id number] Output: Urine 900 750 Estimated Blood Loss 3 Other: Voiding Method Toilet Toilet Toilet Bedside Commode Bedside Commode Bedside Commode Urinal Urinal Urinal # Voids 1 0 # Bowel Movements 1 - Exam Inspection: Foam tape present over the right side posterior cervical spine. Dressing to be left in place today. We will check/change dressing tomorrow Sensation: Equal, symmetric, bilaterally intact at the upper and lower extremities Palpation: Moderate tenderness to palpation directly over incision Nontender to palpation throughout rest of exam. Range of motion: Patient has full range of motion throughout bilateral upper and lower extremities on exam. Motor: 4+/5 in all major motor groups in bilateral upper extremity is in exam. Neurovascular: Radial pulses intact, 2+ bilaterally. Cap refill under 3 seconds in digits of upper extremities. Special tests: Negative Homans bilaterally. Negative Tina bilaterally. Negative clonus bilaterally. - Labs CBC & Chem 7: 06/16/23 04:28 06/16/23 04:28 Labs: Abnormal Lab Results - Last 24 Hours (Table) 06/15/23 06/15/23 06/15/23 Range/Units 07:08 07:08 09: WBC 21.95 H (4.50-10.00) X 10*3/uL RBC (4.30-5.90) m/uL Neutrophils # (1.3-7.7) k/uL Monocytes # (0-1.0) k/uL ESR 70 H (0-15) mm/Hr Sodium (137-145) mmol/L Glucose (74-99) mg/dL POC Glucose (mg/dL) 116 H (70-110) mg/dL Calcium (8.4-10.2) mg/dL C-Reactive Protein 20.90 H (0.00-0.80) mg/dL 06/16/23 06/16/23 Range/Units 04:28 04:28 WBC 19.7 H (4.50-10.00) X 10*3/uL RBC 4.15 L (4.30-5.90) m/uL Neutrophils # 15.3 H (1.3-7.7) k/uL Monocytes # 1.8 H (0-1.0) k/uL ESR (0-15) mm/Hr Sodium 132 L (137-145) mmol/L Glucose 102 H (74-99) mg/dL POC Glucose (mg/dL) (70-110) mg/dL Calcium 8.1 L (8.4-10.2) mg/dL C-Reactive Protein (0.00-0.80) mg/dL Microbiology - Last 24 Hours (Table) 06/12/23 23:05 Blood Culture Gram Stain - Final Blood Blood Culture - Final Methicillin resist S. aureus 06/12/23 22:50 Blood Culture Gram Stain - Final Blood Blood Culture - Final Methicillin resist S. aureus Assessment and Plan Assessment: 1. Neck abscess Plan: 1. Neck abscess- patient stable at bedside this morning in ICU. Surgery performed yesterday, 06/15/2023incision and drainage of neck abscess. Cultures pending at this time. Continue IV antibiotics. Appreciate other specialties recommendations. Patient may weight-bear as tolerated. We'll maintain the dressing intact for today and plan for dressing change tomorrow with potential drain removal and removal of some iodoform gauze. Pain medicat ion as needed.. We'll continue to follow patient during his stay in hospital. 2. Appreciate medical management 3. Pain management - Tylenol; methadone; Toradol 4. GI prophylaxis recs 5. DVT prophylaxis - Lovenox 6. PT/OT - WBAT Time with Patient: Less than 30
--- NOTE | 2023-06-16 11:30 | P.PN ---
Subjective Progress Note Date: 06/16/23 Patient is a 32-year-old male with heroin abuse who presented to the ER with complaints of right neck ulceration with pain and swelling. Patient had been clean for approximately 4 months when he relapsed 6 days ago. He was seen in the emergency department on ingrown pimple on the back of his neck and he was prescribed Bactrim. A repeat set at less than 24 hours later due to worsening infection. On arrival to the ER his vital signs are within normal limits. Laboratory analysis was remarkable for white blood cell count of 27.8, sodium 135, BUN 24. Chest x-ray showed no acute process. There was concern for worsening cellulitis despite oral antibiotics and is therefore admitted and placed on vancomycin and Zosyn. He was started on IV fluids. The next morning he was having worsening neck pain as well as withdrawal symptoms. Patient found to be bacteremic with chest CT concerning for septic emboli. ID, pulmonology, orthopedic surgery following. Patient currently in medical ICU. Patient had I&D. TTE did not show any vegetations, MARCO pending. Remains on IV vancomycin. Patient seen and examined at bedside. No acute events overnight. Vital signs reviewed General: nontoxic, NAD, appears at stated age, + diaphoretic Cardiovascular: S1S2 , no murmur, positive posterior tibial pulse bilateral, Dermatologic: Neck dressing clean, dry, intact Lungs: Wheezing bilateral , no accessory muscle use Abdominal: soft, nontender to palpation, no guarding, no appreciable o rganomegaly Ext: no gross muscle atrophy, no edema b/l lower extremities, no contractures Neuro: CN II-XI grossly intact, no focal neuro deficits Psych: Alert, oriented, appropriate affect Assessment/Plan: Posterior right neck abscess status post I&D MRSA bacteremia Bilateral lung nodules with mass, appears more so like septic emboli Sepsis Loculated right lung base pleural effusion -Repeat blood cultures daily until cleared -ID following, MARCO pending -Vancomycin with dosing based on trough. Monitor toxicity by following vancomycin trough levels and creatinine levels -IV fluids normal saline to 75 mL/h -Pulmonology following, patient may need thoracentesis Heroin dependency - Wean Methadone, currently on 2.5 mg 3 times daily as needed for pain -Catapres 0.1 mg by mouth 3 times daily as needed for withdrawal symptoms Vitreous Floaters -Ophthalmology consultation reviewed: Patient only agreed to limited exam. Does not appear to have a serious eye problem. Imaging: Brain and cervical spine MRI shows right posterior neck abscess, no extension into the brain or the spine. Data Review: WBC 19.7, sodium 132, creatinine 0.81 DVT prophylaxis: Lovenox Anticipated discharge date: Pending Clinical Course Anticipated discharge place: Pending Clinical Course, if needed to have IV antibiotics at the time of discharge, patient is agreeable to go to a nursing facility Objective - Vital Signs Vital signs: Vital Signs Temp 99.2 F 06/16/23 08:00 Pulse 87 06/16/23 11:00 Resp 13 06/16/23 11:00 BP 153/84 06/16/23 11:00 Pulse Ox 91 L 06/16/23 11:00 FiO2 Intake & Output 06/15/23 06/16/23 06/16/23 18:59 06:59 18:59 Intake Total 1675 1850 375 Output Total 900 753 500 Balance 775 1097 -125 Weight 85 kg Intake: IV 675 1850 375 Sodium Chloride 0.9% 1, 675 1250 375 000 ml @ 75 mls/hr IV . [id number] [facility] Rx#:[id number] Intake, IV Titration 1000 Amount Vancomycin 1,500 mg In 500 Sodium Chloride 0.9% 500 ml 500 ml @ 167 mls/hr IVPB Q12H [facility] Rx#: [id number] Vancomycin 1,500 mg In 500 Sodium Chloride 0.9% 500 ml 500 ml @ 167 mls/hr IVPB Q8H [facility] Rx#: [id number] Output: Urine 900 750 500 Estimated Blood Loss 3 Other: Voiding Method Toilet Toilet Toilet Bedside Commode Bedside Commode Bedside Commode Urinal Urinal Urinal # Voids 1 0 # Bowel Movements 1 - Labs CBC & Chem 7: 06/16/23 04:28 06/16/23 04:28 Labs: Abnormal Lab Results - Last 24 Hours (Table) 06/15/23 06/15/23 06/16/23 Range/Units 07:08 07:08 04:28 WBC 21.95 H 19.7 H (4.50-10.00) X 10*3/uL RBC 4.15 L (4.30-5.90) m/uL Neutrophils # 15.3 H (1.3-7.7) k/uL Monocytes # 1.8 H (0-1.0) k/uL ESR 70 H (0-15) mm/Hr Sodium (137-145) mmol/L Glucose (74-99) mg/dL Calcium (8.4-10.2) mg/dL C-Reactive Protein 20.90 H (0.00-0.80) mg/dL 06/16/23 Range/Units 04:28 WBC (4.50-10.00) X 10*3/uL RBC (4.30-5.90) m/uL Neutrophils # (1.3-7.7) k/uL Monocytes # (0-1.0) k/uL ESR (0-15) mm/Hr Sodium 132 L (137-145) mmol/L Glucose 102 H (74-99) mg/dL Calcium 8.1 L (8.4-10.2) mg/dL C-Reactive Protein (0.00-0.80) mg/dL Microbiology - Last 24 Hours (Table) 06/12/23 23:05 Blood Culture Gram Stain - Final Blood Blood Culture - Final Methicillin resist S. aureus 06/12/23 22:50 Blood Culture Gram Stain - Final Blood Blood Culture - Final Methicillin resist S. aureus
--- NOTE | 2023-06-16 11:56 | P.PN ---
Subjective Progress Note Date: 06/16/23 Principal diagnosis: Neck abscess MRSA bacteremia and possible septic emboli Patient is a 32-year-old male with a past medical history Nupercaine for IV drug use current everyday smoker presenting to the hospital for evaluation of painful lump to the right side of the posterior neck, patient did have a CT of the neck with evidence of fluid collection suspicious for abscess also with multiple pulmonary nodules suspicious for septic emboli. Patient did have a drainage of the posterior neck abscess by orthopedics on 06/15/2023 On today's evaluation that is 06/16/2023, the patient denies any fever or any chills, , the patient is breathing comfortably on 2 L nasal cannula oxygen , the patient denies chest pain and no significant cough, patient denies nausea / vo miting or diarrhea and no abdominal pain denies any worsening pain to the neck area , patient is scheduled for the this morning Patient white count of his down to 19.7, creatinine 0.81, blood culture 06/15/2023 as well as 06/16/2023 currently pending Objective - Vital Signs Vital signs: Vital Signs Temp 99.2 F 06/16/23 08:00 Pulse 87 06/16/23 11:00 Resp 13 06/16/23 11:00 BP 153/84 06/16/23 11:00 Pulse Ox 91 L 06/16/23 11:00 FiO2 Intake & Output 06/15/23 06/16/23 06/16/23 18:59 06:59 18:59 Intake Total 1675 1850 375 Output Total 900 753 500 Balance 775 1097 -125 Weight 85 kg Intake: IV 675 1850 375 Sodium Chloride 0.9% 1, 675 1250 375 000 ml @ 75 mls/hr IV . [id number] [facility] Rx#:[id number] Intake, IV Titration 1000 Amount Vancomycin 1,500 mg In 500 Sodium Chloride 0.9% 500 ml 500 ml @ 167 mls/hr IVPB Q12H [facility] Rx#: [id number] Vancomycin 1,500 mg In 500 Sodium Chloride 0.9% 500 ml 500 ml @ 167 mls/hr IVPB Q8H [facility] Rx#: [id number] Output: Urine 900 750 500 Estimated Blood Loss 3 Other: Voiding Method Toilet Toilet Toilet Bedside Commode Bedside Commode Bedside Commode Urinal Urinal Urinal # Voids 1 0 # Bowel Movements 1 - Exam GENERAL DESCRIPTION: A middle-age male lying in bed in no distress HEENT: Posterior neck area with area of induration swelling and tenderness RESPIRATORY SYSTEM: Unlabored breathing , decreased breath sounds at bases HEART: S1 S2 regular rate and rhythm , ABDOMEN: Soft , no tenderness EXTREMITIES: No edema feet - Labs CBC & Chem 7: 06/16/23 04:28 06/16/23 04:28 Labs: Abnormal Lab Results - Last 24 Hours (Table) 06/15/23 06/15/23 06/16/23 Range/Units 07:08 07:08 04:28 WBC 21.95 H 19.7 H (4.50-10.00) X 10*3/uL RBC 4.15 L (4.30-5.90) m/uL Neutrophils # 15.3 H (1.3-7.7) k/uL Monocytes # 1.8 H (0-1.0) k/uL ESR 70 H (0-15) mm/Hr Sodium (137-145) mmol/L Glucose (74-99) mg/dL Calcium (8.4-10.2) mg/dL C-Reactive Protein 20.90 H (0.00-0.80) mg/dL 06/16/23 Range/Units 04:28 WBC (4.50-10.00) X 10*3/uL RBC (4.30-5.90) m/uL Neutrophils # (1.3-7.7) k/uL Monocytes # (0-1.0) k/uL ESR (0-15) mm/Hr Sodium 132 L (137-145) mmol/L Glucose 102 H (74-99) mg/dL Calcium 8.1 L (8.4-10.2) mg/dL C-Reactive Protein (0.00-0.80) mg/dL Microbiology - Last 24 Hours (Table) 06/12/23 23:05 Blood Culture Gram Stain - Final Blood Blood Culture - Final Methicillin resist S. aureus 06/12/23 22:50 Blood Culture Gram Stain - Final Blood Blood Culture - Final Methicillin resist S. aureus Assessment and Plan (1) Neck abscess Current Visit: Yes Status: Acute Code(s): L02.11 - CUTANEOUS ABSCESS OF NECK SNOMED Code(s): 1268630 (2) MRSA bacteremia Current Visit: Yes Status: Acute Code(s): R78.81 - BACTEREMIA; B95.62 - METHICILLIN RESIS STAPH INFCT CAUSING DISEASES [facility]SD [id number] SNOMED Code(s): 81580643192284561 Plan: 1patient presented to hospital with right posterior neck pain swelling and induration with evidence of abscess on the CT and also concerning for possible septic emboli in this patient who do have history of IV drug use high clinic suspicious for likely MRSA, gram-negative infection less likely but not entirely excluded 2CT of the chest did show some multiple nodules suspicious for septic emboli echocardiogram did not show any vegetation MRI of the brain is currently pending. 3patient currently waiting for MARCO to be completed this morning 4patient to continue the vancomycin pharmacy to dose with target trough of 15 and will watch his kidney function closely. Dictation was produced using [employer] dictation software. please excuse any grammatical, word or spelling errors. Time with Patient: Less than 30
[2023-06-16] MEDS ORDERED: KETAMINE HCL IN 0.9 % NACL 50 MG/5 ML SYRINGE ONE (12:28)
[2023-06-16] MEDS ORDERED: fentaNYL (PF) 50 MCG/ML 2 ML AMP ONE (12:28)
[2023-06-16] MEDS ORDERED: PROPOFOL 10 MG/ML 20 ML VIAL IV ONE (12:28)
[2023-06-16] MEDS ORDERED: MIDAZOLAM 2 MG/2 ML VIAL ONE (12:28)
--- NOTE | 2023-06-16 12:51 | P.TEE ---
Date of Procedure: 06/16/23 Description of Procedure(s): Procedure performed: 1. Transesophageal Echocardiogram with color flow doppler, pulsed wave doppler and continuous wave doppler, 2. Bubble Study 3. failed moderate conscious sedation. Used anesthesia for general anesthesia. Indications: Bacteremia and sepsis. Rule out infective endocarditis. Consent: I have discussed the risks, benefits and alternative therapies for the above-mentioned procedure. The patient has indicated understanding and acceptance of the risks of the procedure. Signed consent was obtained and was placed in the paper chart. Procedural Steps: Timeout was performed in usual fashion. Patient's heart rate, blood pressure, oxygen saturation and ECG were monitored. Benzocaine was sprayed liberally in the back of the throat. Bite block was placed between the jaw. 8 mg of Versed and 100 mcg of Fentanyl were administered intravenously. We failed to achieve appropriate moderate conscious sedation required for transesophageal echocardiogram. Therefore anesthesia was called for general anesthesia. MARCO probe was advanced without difficulty and without any immediate complications to the esophagus. MARCO study was performed with color flow doppler, pulsed wave doppler and continuous wave doppler. Agitated saline bubbles were injected to assess for any intra-atrial shunt. The probe was then removed. Patient tolerated the procedure well. Patient was transferred to the post procedure area in stable and satisfactory condition. Throughout the procedure patient's heart rate, blood pressure, oxygen saturation and ECG were monitored. Complications: none FINDINGS Left Atrium: Normal Left atrial size. No evidence of mass or thrombus seen Left Atrial Appendage: No evidence of thrombus or mass seen in ELYSIA Inter atrial septum: Intact inter-atrial septum with no right to left shunt on bubble study. No evidence of atrial septal defect or patent foramen ovale Left Ventricle: Normal global LV size and systolic function Right Atrium: Normal overall RV size Right Ventricle: Normal global RV size and systolic function Aortic Valve: Structurally normal Trileaflet, no significant calcification. No significant stenosis or regurgitation on color doppler assessment. No evidence of infective endocarditis. Mitral Valve: Struturally normal. No evidence of prolapse. No evidence of stenosis or regurgitation on doppler assessment. No evidence of infective endocarditis. Pulmonic Valve: Not well visualized. Tricuspid Valve: Structurally normal. No evidence of infective endocarditis. Ascending aorta, Aortic root and Aortic arch: Normal size No pericardial effusion Pleural effusion is present CONCLUSION: No evidence of infective endocarditis No significant valvular dysfunction Normal global LV size and systolic function. Normal chamber size. Pleural effusion present
--- NOTE | 2023-06-16 14:40 | P.PN ---
Subjective Progress Note Date: 06/16/23 I am seeing this patient in new consultation today 06/15/2023 after he presented back on June 13 with concerns of right neck abscess patient is a 32-year-old white male with past medical history significant for IV drug abuse, hepatitis C, and is a current smoker. Patient originally presented to the emergency room on June 12 with concerns of right neck cellulitis/abscess. He says that it looked like a "spider bite". He was originally discharged home on Bactrim. He did try and drain the abscess with a nail and razor blade at home. He progressively became more weak and had subjective fevers at home. He continues to use IV heroin. He did come back to the emergency room on June 13. CT of the neck shows a 6 x 2 x 3 cm thin walled fluid collection within the right neck. Blood cultures are positive for presumptive MRSA. Chest CT shows multiple bilateral pulmonary cavitating nodules and masses. Considering the patient's history, these are concerning for septic emboli. There is a loculated right pleural effusion at the lung base. A 2-D transthoracic echocardiogram is pending. Patient has been started on IV vancomycin. CBC from yesterday shows a WBC count of 22.6, hemoglobin 13.3, hematocrit 40.9, platelets 272. BMP from admission shows a sodium 133, potassium 4.3, chloride 106, serum bicarb 20, BUN 19, creatinine 1.07, glucose 117. Patient is currently sitting u p in bed, on room air, in no acute distress. He continues to be febrile with a T-max of 102.6F. Patient is hemodynamically stable at this time. The patient is seen today 06/16/2023 in follow-up in the intensive care unit. He is currently sitting up in bed. Awake and alert in no acute distress. He did have a fever early this morning of 101.2. He is maintaining O2 saturations in the 90s on 2 L/m per nasal cannula. He's been hemodynamically stable. He did undergo transesophageal echocardiogram which did not reveal any evidence of infective endocarditis. MRI of the head and neck did reveal a right posterior neck phlegmonos changes and early abscess. No evidence for extension into the brain. No evidence of osteitis. Blood cultures are positive for MRSA. White count 19.7. Hemoglobin 13.7. Platelets 185. Sodium 132. Potassium 4.7. Bicarb 22. BUN 17. Creatinine 0.81. Glucose 102. He is continued on vancomycin. Lovenox for DVT prophylaxis. NicoDerm patch in place. Normal saline at 75 ML's per hour. Objective - Vital Signs Vital signs: Vital Signs Temp 99.0 F 06/16/23 12:00 Pulse 96 06/16/23 13:00 Resp 35 H 06/16/23 13:00 BP 119/98 06/16/23 13:00 Pulse Ox 94 L 06/16/23 13:00 FiO2 Intake & Output 06/15/23 06/16/23 06/16/23 18:59 06:59 18:59 Intake Total 1675 1850 525 Output Total 813 495 0003 Balance 775 1097 -675 Weight 85 kg Intake: IV 675 1850 525 Sodium Chloride 0.9% 1, 675 1250 525 000 ml @ 75 mls/hr IV . [id number] [facility] Rx#:[id number] Intake, IV Titration 1000 Amount Vancomycin 1,500 mg In 500 Sodium Chloride 0.9% 500 ml 500 ml @ 167 mls/hr IVPB Q12H [facility] Rx#: [id number] Vancomycin 1,500 mg In 500 Sodium Chloride 0.9% 500 ml 500 ml @ 167 mls/hr IVPB Q8H [facility] Rx#: [id number] Output: Urine 073 661 2308 Estimated Blood Loss 3 Other: Voiding Method Toilet Toilet Toilet Bedside Commode Bedside Commode Bedside Commode Urinal Urinal Urinal # Voids 1 0 # Bowel Movements 1 - Exam GENERAL EXAM: Alert, 32-year-old male, on 2 L nasal cannula, comfortable in no apparent distress. HEAD: Normocephalic and atraumatic EYES: Normal reaction of pupils, equal size. NOSE: Clear with pink turbinates. THROAT: No erythema or exudates. NECK: No masses, no JVD. Right neck abscess that is hard with a small fluctuant center. CHEST: No chest wall deformity. LUNGS: Equal air entry with no crackles, wheeze, rhonchi or dullness. on room air. No conversational dyspnea. CVS: S1 and S2 normal with no audible murmur, regular rhythm. No extra heart sounds ABDOMEN: No hepatosplenomegaly, active bowel sounds, no guarding or rigidity. SPINE: No scoliosis or deformity SKIN: No rashes CENTRAL NERVOUS SYSTEM: No focal deficits, tone is normal in all 4 extremities. EXTREMITIES: There is no peripheral edema, clubbing, or cyanosis. Peripheral pulses are intact. - Labs CBC & Chem 7: 06/16/23 04:28 06/16/23 04:28 Labs: Abnormal Lab Results - Last 24 Hours (Table) 06/16/23 06/16/23 Range/Units 04:28 04:28 WBC 19.7 H (3.8-10.6) k/uL RBC 4.15 L (4.30-5.90) m/uL Neutrophils # 15.3 H (1.3-7.7) k/uL Monocytes # 1.8 H (0-1.0) k/uL Sodium 132 L (137-145) mmol/L Glucose 102 H (74-99) mg/dL Calcium 8.1 L (8.4-10.2) mg/dL Microbiology - Last 24 Hours (Table) 06/15/23 20:01 Gram Stain - Preliminary Neck 06/12/23 23:05 Blood Culture Gram Stain - Final Blood Blood Culture - Final Methicillin resist S. aureus 06/12/23 22:50 Blood Culture Gram Stain - Final Blood Blood Culture - Final Methicillin resist S. aureus Assessment and Plan Assessment: Right neck abscess, CT of the neck shows a 6 x 2 x 3 cm thin walled fluid collection within the right neck. Status post incision and drainage. Cultures pending. MRI of the head and neck reveals a right posterior neck phlegmon as changes and early abscess. No evidence for extension into the brain. No evidence of osteitis. Currently on vancomycin. Transesophageal echocardiogram did not reveal any evidence of infective endocarditis. MRSA bacteremia Leukocytosis, secondary to above Multiple cavitating pulmonary nodules and masses, concerning for septic emboli. Doubt malignancy, due to patient's age. Loculated right pleural effusion History of hepatitis C Polysubstance abuse and IV drug abuse Current tobacco smoker Plan: The patient was seen and evaluated MRI of the neck, MARCO results, medications and labs reviewed Continues on vancomycin Educated regarding the importance of IV drug use cessation Educated regarding importance of complete smoking cessation NicoDerm patch in place Continue to monitor closely in the intensive care unit I have personally seen and examined the patient, performed the documentation and the assessment and plan as written. Number of minutes spent on the visit: 10.
--- NOTE | 2023-06-16 16:31 | P.OP ---
Date of Procedure: 06/15/23 Preoperative Diagnosis: 1. right posterior neck abscess 2. History of IVDA 3. Sepsis with bacteremia septic emboli and likely myocarditis 4. Neck pain Postoperative Diagnosis: 1. right posterior neck abscess 2. History of IVDA 3. Sepsis with bacteremia septic emboli and likely myocarditis 4. Neck pain Procedure(s) Performed: 1. Incision and drainage with irrigation and debridement right posterior neck abscess using the following: - Skin knife used to incise skin and freshen edges - Ronguere and curet used to remove necrotic tissue and subcutaneous as well as muscle -irrigated used to irrigate the wound Implants: none Anesthesia: GETA Surgeon: Roland Sanchez Invoice Machine Operator #1: Toni Maravilla (MARY Palacios Was present and assisted with all aspects of the case from positioning to dressing placement) Estimated Blood Loss (ml): 25 IV fluids (ml): 400 Urine output (ml): 0 Pathology: other (2 posterior neck wound) Condition: stable Disposition: PACU Indications for Procedure: Orthopedic Surgery Risk Review Baltazar is a 32-year-old male presenting for evaluation of sudden onsright-sided posterior neck pain, with palpable abscess and drainage. It was my pleasure to have seen and examined Baltazar. In our visit today we have had a chance to go over subjective complaints, physical examination findings and treatments including the natural course history without intervention and various interventional options. [his imaging demonstrates 6 cm posterior lateral abscess of the neck on the right-hand side. On physical exam, Baltazar demonstrates pain with motion of his neck with increased pain. He is NV intact at this time. I have explained to the patient that this fracture needs stabilization. Based on the patients imaging, physical exam, and the rapid progression and disabling nature of her symptoms, at this time I recommend surgery in the form or a: incision and drainage with irrigation and debridement right posterior neck wound I discussed the risk and benefits of this procedure at length with Baltazar. Questions were invited and answered, and the patient wishes to proceed as outlined below. Currently, I am recommendin. incision and drainage with irrigation and debridement right posterior neck wound 2. Review of surgical risks and benefits as well as an educational packet on the proposed surgical procedure. Risks: All surgical procedures come with inherent risks, including those related to positioning, anesthesia, intraoperative findings, and postoperative complications. It is important to understand that surgery does not come with any guarantee of a successful outcome as complications and adverse events are always possible. The patient was given a handout discussing the surgical procedure and risks associated with the intervention, both of which were discussed with the patient. These risks include but are not limited to the following: - Experiencing same, different or even worse symptoms compared to before surgery. - Requiring further surgery or other forms of treatment presently or at some time in the future . - On an extreme but fortunately relatively rare basis severe complication such as blindness, stroke, heart attack, temporary and/or permanent nerve injury, paralysis, coma, or may occur, sometimes without known explanation. - Surgical complications may include but are not limited to risk of infection, fluid accumulation in the surgical dissection site, including a seroma or hematoma, that requires additional surgery, wound drainage, bleeding, new numbness or weakness, vision changes/loss, spinal fluid leakage, non-healing and/or infected incision, headaches, difficulty or inability to swallow, hoarseness, hemopneumothorax, pneumothorax, injury to nerves, spinal cord, blood vessels, lymphatics or other vital organs (i.e., bowel injury, injury to the great vessels); heterotopic bone formation; complications related to the hardware such as screws, rods, including misplaced hardware, device failure, hardware fracture/breakage, or hardware loosening; retained surgical instrumentations or devices and the need for further surgery. - Medical risks of the planned surgery include but are not limited to generalized Infections to the whole body or local areas outside of the surgical site (sepsis), heart attack, bleeding, anaphylaxis, meningitis, seizure, epilepsy, hearing loss, burn marquez, laceration of the head or other areas of the body, bruising, hypersensitivity of the skin, bladder over distension; allergic reaction; shoulder injury related to positioning; fat, blood and air clots to other areas of the body like heart, lungs, brain; failure of internal organs such as lungs, kidneys, liver and excessive bleeding. If blood transfusions are necessary, note that transfusions may cause intolerance reactions such as anaphylaxis or other complex reactions. Despite best efforts, the results of surgery might not heal in terms of bone, soft tissues such as skin, fascia, ligaments, and joints. [facility] has multiple operating rooms with single and overlapping rooms running daily. They currently function under the required guidelines as produced by the [employer] Committee with regards to the overlapping rooms and will continue to comply with changes to this policy as they occur. The requirements include and are complied with as follows: (1) the critical portions of the overlapping rooms will not occur at the same time, (2) the attending physician will be physically present during the critical portions of the procedure and immediately available during the entire case, and (3) a back-up attending is designated should the primary attending not be immediately available. The patient has had a chance to review all the listed information, has been given print outs detailing this information, and has had all his/her questions answered to their satisfaction. It was my pleasure to have seen and examined Baltazar. In our visit today we have had a chance to go over my understanding of our patient's current condition, the natural course history without intervention and various interventional options. Questions were invited and answered, and the patient wishes to proceed as outlined above. I have seen and examined the patient for 25 minutes and we have spent more than 50% of the time in repeat and detailed counseling about the patient's condition, its natural course history with out and as much as can be predicted with surgery and re-review of various surgical treatment options. In conclusionJacob requested we proceed with the above suggested surgery and are willing to accept risks and limitations of the suggested surgery as nature of the disease process and our best attempts at treatment for the condition. Thank you again for allowing us to be part of your patient's care. Please don't hesitate to contact me if you have any further questions. Signed and authenticated by: Roland Ashley [facility] [address] [place] [id number] Description of Procedure: The patient was seen and examined in the preoperative area. All preoperative protocols were followed. Informed consent was obtained risks and benefits of the procedure were discussed at length. Risks including bleeding infection damage to the surrounding tissue and risk of reoperation were discussed with the patient. Risk of anesthesia up to and including was a discussed with the patient. These are outlined in the risk review. They were willing to accept these risks and all of the risks of surgery. The patient was given a weight- based dose of antibiotics in the form of patient was on vancomycin from the floor. The patient was seen and evaluated by the anesthesia team who deemed them fit for surgery. The site was marked, the patient was willing to proceed with the procedure. The patient was transferred to the operative suite by the Department of anesthesia. They were then drifted off to sleep by the department anesthesia and GETA was performed. The patient tolerated this well. Once confirmation of lines and ventilation the patient was transferred to a [prone Juarez table very carefully]. All bony prominences including wrists, elbows, axilla, chest, hips, and thighs, and feet were padded very well. Special attention was paid to the genitalia and these were padded accordingly. SCDs were placed on bilateral lower extremities and were connected. Arms were well padded and placed [on arm boards up and out in the 90/90 position]. Once in position, again we confirmed good ventilation capabilities and that lines were running appropriately. The patient's [cervical/thoracic/lumbar] spine was then exposed. 1010s were placed outlining the incision site. Standard alcohol was used to clean the incision site and allowed to dry. Operative briefing was performed with all teams and everyone in agreement to proceed. The patient was then prepped and draped in a normal sterile fashion. Timeout was then performed and all parties were in agreement with the procedure to be performed. oblique skin incision was made over the right posterior neck wound where there was an abrasion as well as purulence coming from an area. Skin blade was used to remove this necrotic skin. Once neck was incised there was a larger area of purulent material which was expressed from the patient's posterior lateral neck. Once this was expressed the area was cleaned using a Baldwin as well as a stat. Curet was used to remove necrotic tissue as well as Ronjair. 3 L of antibiotic solution followed by 3 L of normal sterile saline were run through the wound along with curetting of the soft tissues tissues. Once this was debrided and irrigated thoroughly the wound edges were loosely approximated with 2-0 nylon. Imaging these areas a drain was placed Blount. Iodoform gauze was then packed into the remainder of the wound. the wound was then cleaned and dressed sterilely with Adaptic 4 x 4's and foam tape. The patient was transferred back to their hospital bed atraumatically. Patient was then awakened and extubated by the department of anesthesia having tolerated the procedure very well with no complications. They were transferred to the postoperative care unit in stable condition.
[2023-06-16] MEDS ORDERED: CALCIUM CARBONATE 500 MG CHEWABLE PO PRN (20:39)
[2023-06-16] MEDS: cloNIDine HCL 0.1 MG TAB PO PRN (20:45)
[2023-06-17] MEDS: KETOROLAC 15 MG/ML 1 ML VIAL IVP SCH ×2 (01:40→06:12)
[2023-06-17] MEDS: NICOTINE 21MG/24HR PATCH TRANSDERM SCH (01:41)
[2023-06-17] MEDS: SODIUM CHLORIDE 0.9% 1,000 ML IV SCH ×2 (02:13→05:30)
[2023-06-17] MEDS ORDERED: VANCOMYCIN TROUGH DUE 1 EACH MISC MISCELLANE ONE (04:00)
[2023-06-17 05:45] LABS: Basophils # (A) 0.1 k/uL (0-0.2); Basophils % (A) 0 %; Eosinophils # (A) 0.2 k/uL (0-0.7); Eosinophils % (A) 1 %; HCT 41.9 % (39.0-53.0); HGB 13.6 gm/dL (13.0-17.5); Lymphocytes # (A) 1.5 k/uL (1.0-4.8); Lymphocytes % (A) 7 %; MCH 31.2 pg (25.0-35.0); MCHC 32.3 g/dL (31.0-37.0); MCV 96.5 fL (80.0-100.0); Mean Platelet Volume 8.6; Monocytes # (A) 1.7 k/uL (0-1.0); Monocytes % (A) 8 %; Neutrophils # (A) 18.1 k/uL (1.3-7.7); Neutrophils % (A) 82 %; Platelet Count 364 k/uL (150-450); RBC 4.35 m/uL (4.30-5.90); WBC 22.1 k/uL (3.8-10.6)
[2023-06-17] MEDS: VANCOMYCIN 1,500 MG in SODIUM CHLORIDE 0.9% 500 ML 500 ML IVPB SCH (05:55)
[2023-06-17 06:50] LABS: African American GFR (CKD) >90 (>60 ml/min/1.73 sqM); Non-African American GFR(CKD) >90 (>60 ml/min/1.73 sqM)
[2023-06-17] MEDS: ENOXAPARIN 40 MG/0.4 ML SYRINGE SQ SCH (09:05)
[2023-06-17] MEDS: METHADONE 5 MG TAB PO PRN (09:05)
[2023-06-17] MEDS: IPRATROPIUM-ALBUTEROL 3 ML NEB INHALATION SCH ×5 (09:07→19:21)
--- NOTE | 2023-06-17 11:32 | P.PN ---
Subjective Progress Note Date: 06/17/23 Patient is a 32-year-old male with heroin abuse who presented to the ER with complaints of right neck ulceration with pain and swelling. Patient had been clean for approximately 4 months when he relapsed 6 days ago. He was seen in the emergency department on ingrown pimple on the back of his neck and he was prescribed Bactrim. A repeat set at less than 24 hours later due to worsening infection. On arrival to the ER his vital signs are within normal limits. Laboratory analysis was remarkable for white blood cell count of 27.8, sodium 135, BUN 24. Chest x-ray showed no acute process. There was concern for worsening cellulitis despite oral antibiotics and is therefore admitted and pl aced on vancomycin and Zosyn. He was started on IV fluids. The next morning he was having worsening neck pain as well as withdrawal symptoms. Patient found to be bacteremic with chest CT concerning for septic emboli. ID, pulmonology, orthopedic surgery following. Patient currently in medical ICU. Patient had I&D. TTE did not show any vegetations, MARCO also did not show any vegetations. Remains on IV vancomycin. Repeat blood cultures have been negative so far Patient seen and examined at bedside. No acute events overnight. Vital signs reviewed General: nontoxic, NAD, appears at stated age Cardiovascular: S1S2 , no murmur, positive posterior tibial pulse bilateral, Dermatologic: Neck dressing clean, dry, intact Lungs: Bilateral rales, no accessory muscle use, supplemental oxygen Abdominal: soft, nontender to palpation, no guarding, no appreciable organomegaly Ext: no gross muscle atrophy, no edema b/l lower extremities, no contractures Neuro: CN II-XI grossly intact, no focal neuro deficits Psych: Alert, oriented, appropriate affect Assessment/Plan: Posterior right neck abscess status post I&D MRSA bacteremia Bilateral lung nodules with mass, appears more so like septic emboli Sepsis Loculated right lung base pleural effusion -Repeat blood cultures have been negative growth to date -ID following, MARCO does not show any vegetations -Neck abscess also going MRSA, likely source of bacteremia -Vancomycin with dosing based on trough. Monitor toxicity by following van comycin trough levels and creatinine levels -IV fluids normal saline to 75 mL/h -Pulmonology following Heroin dependency - Wean Methadone, currently on 2.5 mg twice a day as needed for pain -Catapres 0.1 mg by mouth 3 times daily as needed for withdrawal symptoms Vitreous Floaters -Ophthalmology consultation reviewed: Patient only agreed to limited exam. Does not appear to have a serious eye problem. Imaging: No new imaging Data Review: WBC 22.1, creatinine 0.78 DVT prophylaxis: Lovenox Anticipated discharge date: Pending Clinical Course Anticipated discharge place: Pending Clinical Course, if needed to have IV antibiotics at the time of discharge, patient is agreeable to go to a nursing facility Objective - Vital Signs Vital signs: Vital Signs Temp 98.4 F 06/17/23 08:00 Pulse 65 06/17/23 10:30 Resp 18 06/17/23 10:22 BP 170/95 06/17/23 08:00 Pulse Ox 94 L 06/17/23 09:08 FiO2 Intake & Output 06/16/23 06/17/23 06/17/23 18:59 06:59 18:59 Intake Total 900 900 150 Output Total 0 2000 600 Balance -1150 -1100 -450 Weight 83.6 kg Intake: IV 900 900 150 Sodium Chloride 0.9% 1, 900 900 150 000 ml @ 75 mls/hr IV . [id number] [facility] Rx#:[id number] Output: Urine 2049 1999 600 Other: Voiding Method Toilet Toilet Toilet Bedside Commode Bedside Commode Urinal Urinal Urinal # Voids 0 0 - Labs CBC & Chem 7: 06/17/23 05:35 06/17/23 05:35 Labs: Abnormal Lab Results - Last 24 Hours (Table) 06/17/23 Range/Units 05:35 WBC 22.1 H (3.8-10.6) k/uL Neutrophils # 18.1 H (1.3-7.7) k/uL Monocytes # 1.7 H (0-1.0) k/uL Microbiology - Last 24 Hours (Table) 06/15/23 20:01 Gram Stain - Preliminary Neck Wound Culture - Preliminary Presumptive MRSA 06/15/23 07:08 Blood Culture - Preliminary Blood
--- NOTE | 2023-06-17 12:10 | P.PN ---
Subjective Progress Note Date: 06/17/23 I am seeing this patient in new consultation today 06/15/2023 after he presented back on June 13 with concerns of right neck abscess patient is a 32-year-old white male with past medical history significant for IV drug abuse, hepatitis C, and is a current smoker. Patient originally presented to the emergency room on June 12 with concerns of right neck cellulitis/abscess. He says that it looked like a "spider bite". He was originally discharged home on Bactrim. He did try and drain the abscess with a nail and razor blade at home. He progressively became more weak and had subjective fevers at home. He continues to use IV heroin. He did come back to the emergency room on June 13. CT of the neck shows a 6 x 2 x 3 cm thin walled fluid collection within the right neck. Blood cultures are positive for presumptive MRSA. Chest CT shows multiple bilateral pulmonary cavitating nodules and masses. Considering the patient's history, these are concerning for septic emboli. There is a loculated right pleural effusion at the lung base. A 2-D transthoracic echocardiogram is pending. Patient has been started on IV vancomycin. CBC from yesterday shows a WBC count of 22.6, hemoglobin 13.3, hematocrit 40.9, platelets 272. BMP from admission shows a sodium 133, potassium 4.3, chloride 106, serum bicarb 20, BUN 19, creatinine 1.07, glucose 117. Patient is currently sitting u p in bed, on room air, in no acute distress. He continues to be febrile with a T-max of 102.6F. Patient is hemodynamically stable at this time. The patient is seen today 06/16/2023 in follow-up in the intensive care unit. He is currently sitting up in bed. Awake and alert in no acute distress. He did have a fever early this morning of 101.2. He is maintaining O2 saturations in the 90s on 2 L/m per nasal cannula. He's been hemodynamically stable. He did undergo transesophageal echocardiogram which did not reveal any evidence of infective endocarditis. MRI of the head and neck did reveal a right posterior neck phlegmonos changes and early abscess. No evidence for extension into the brain. No evidence of osteitis. Blood cultures are positive for MRSA. White count 19.7. Hemoglobin 13.7. Platelets 185. Sodium 132. Potassium 4.7. Bicarb 22. BUN 17. Creatinine 0.81. Glucose 102. He is continued on vancomycin. Lovenox for DVT prophylaxis. NicoDerm patch in place. Normal saline at 75 ML's per hour. The patient is seen today 06/17/2023 in follow-up in the intensive care unit. He is currently sitting up in bed. Awake and alert in no acute distress. Maintaining O2 saturations in the 90s on 2 L/m per nasal cannula. He did undergo incision and drainage with irrigation and debridement of the right posterior neck abscess yesterday. Cultures positive for MRSA as well. White count 22.1. Hemoglobin 13.6. Platelets 364. Creatinine 0.78. GFR greater than 90. Vancomycin trough 9.4. He remains on vancomycin. NicoDerm patch in place. Lovenox for DVT prophylaxis. Continued on DuoNeb inhalations. Objective - Vital Signs Vital signs: Vital Signs Temp 98.4 F 06/17/23 08:00 Pulse 65 06/17/23 10:30 Resp 18 06/17/23 10:22 BP 170/95 06/17/23 08:00 Pulse Ox 94 L 06/17/23 09:08 FiO2 Intake & Output 06/16/23 06/17/23 06/17/23 18:59 06:59 18:59 Intake Total 900 900 150 Output Total 2049 Balance -1150 -1100 -450 Weight 83.6 kg Intake: IV 900 900 150 Sodium Chloride 0.9% 1, 900 900 150 000 ml @ 75 mls/hr IV . [id number] [facility] Rx#:[id number] Output: Urine 2049 Other: Voiding Method Toilet Toilet Toilet Bedside Commode Bedside Commode Urinal Urinal Urinal # Voids 0 0 - Exam GENERAL EXAM: Alert, 32-year-old male, sitting up in bed, on 2 L nasal cannula, comfortable in no apparent distress. HEAD: Normocephalic and atraumatic EYES: Normal reaction of pupils, equal size. NOSE: Clear with pink turbinates. THROAT: No erythema or exudates. NECK: No masses, no JVD. Right neck abscess that is hard with a small fluctuant center. CHEST: No chest wall deformity. Seen over right neck area dry and intact. LUNGS: Equal air entry with no crackles, wheeze, rhonchi or dullness. CVS: S1 and S2 normal with no audible murmur, regular rhythm. No extra heart sounds ABDOMEN: No hepatosplenomegaly, active bowel sounds, no guarding or rigidity. SPINE: No scoliosis or deformity SKIN: No rashes CENTRAL NERVOUS SYSTEM: No focal deficits, tone is normal in all 4 extremities. EXTREMITIES: There is no peripheral edema, clubbing, or cyanosis. Peripheral pulses are intact. - Labs CBC & Chem 7: 06/17/23 05:35 06/17/23 05:35 Labs: Abnormal Lab Results - Last 24 Hours (Table) 06/17/23 Range/Units 05:35 WBC 22.1 H (3.8-10.6) k/uL Neutrophils # 18.1 H (1.3-7.7) k/uL Monocytes # 1.7 H (0-1.0) k/uL Microbiology - Last 24 Hours (Table) 06/15/23 20:01 Gram Stain - Preliminary Neck Wound Culture - Preliminary Presumptive MRSA 06/15/23 07:08 Blood Culture - Preliminary Blood Assessment and Plan Assessment: Right neck abscess, CT of the neck shows a 6 x 2 x 3 cm thin walled fluid collection within the right neck. Status post incision and drainage. Cultures revealing presumptive MRSA. MRI of the head and neck reveals a right posterior neck phlegmon as changes and early abscess. No evidence for extension into the brain. No evidence of osteitis. Currently on vancomycin. Transesophageal echocardiogram did not reveal any evidence of infective endocarditis. MRSA bacteremia secondary to above Leukocytosis, secondary to above Multiple cavitating pulmonary nodules and masses, concerning for septic emboli. Doubt malignancy, due to patient's age. Loculated right pleural effusion History of hepatitis C Polysubstance abuse and IV drug abuse Current tobacco smoker Plan: The patient was seen and evaluated Operative report, medications and labs reviewed Right neck abscess presumptive MRSA Continues on vancomycin Educated regarding the importance of IV drug use cessation Educated regarding importance of complete smoking cessation NicoDerm patch in place To be transferred to the regular medical floor We will continue to follow I have personally seen and examined the patient, performed the documentation and the assessment and plan as written. Number of minutes spent on the visit: 10.
[2023-06-17] MEDS: VANCOMYCIN 1,750 MG in SODIUM CHLORIDE 0.9% 500 ML 500 ML IVPB SCH ×2 (13:37→22:18)
--- NOTE | 2023-06-17 14:37 | P.PN ---
Subjective Progress Note Date: 06/17/23 Principal diagnosis: Neck abscess MRSA bacteremia and possible septic emboli Patient is a 32-year-old male with a past medical history Nupercaine for IV drug use current everyday smoker presenting to the hospital for evaluation of painful lump to the right side of the posterior neck, patient did have a CT of the neck with evidence of fluid collection suspicious for abscess also with multiple pulmonary nodules suspicious for septic emboli. Patient did have a drainage of the posterior neck abscess by orthopedics on 06/15/2023, the patient did have a MARCO completed on 06/16/2023 that was negative for any vegetation On today's evaluation that is 06/17/2023, the patient remains to be afebrile, , the patient is breathing comfortably on 2 L nasal cannula oxygen, the patient denies chest pain shortness of breath or cough, patient denies nausea / vomiting and no abdominal pain , no diarrhea reported denies any worsening pain to the neck area Patient white count is slightly up to 22.1,, creatinine is 0.78, blood culture 06/15/2023 also positive, blood cultures from 06/16/2023 currently pending Objective - Vital Signs Vital signs: Vital Signs Temp 98.4 F 06/17/23 12:00 Pulse 71 06/17/23 12:00 Resp 32 H 06/17/23 12:00 BP 154/88 06/17/23 12:00 Pulse Ox 95 06/17/23 12:00 FiO2 Intake & Output 06/16/23 06/17/23 06/17/23 18:59 06:59 18:59 Intake Total 900 900 225 Output Total 2049 Balance -1150 -1100 -375 Weight 83.6 kg Intake: IV 900 900 225 Sodium Chloride 0.9% 1, 900 900 225 000 ml @ 75 mls/hr IV . [id number] [facility] Rx#:[id number] Output: Urine 2049 Other: Voiding Method Toilet Toilet Toilet Bedside Commode Bedside Commode Urinal Urinal Urinal # Voids 0 1 # Bowel Movements 1 - Exam GENERAL DESCRIPTION: A middle-age male lying in bed in no distress HEENT: Posterior neck area with area of induration swelling and tenderness RESPIRATORY SYSTEM: Unlabored breathing , decreased breath sounds at bases HEART: S1 S2 regular rate and rhythm , ABDOMEN: Soft , no tenderness EXTREMITIES: No edema feet - Labs CBC & Chem 7: 06/17/23 05:35 06/17/23 05:35 Labs: Abnormal Lab Results - Last 24 Hours (Table) 06/17/23 Range/Units 05:35 WBC 22.1 H (3.8-10.6) k/uL Neutrophils # 18.1 H (1.3-7.7) k/uL Monocytes # 1.7 H (0-1.0) k/uL Microbiology - Last 24 Hours (Table) 06/16/23 04:28 Blood Culture - Preliminary Blood 06/15/23 20:01 Gram Stain - Preliminary Neck Wound Culture - Preliminary Presumptive MRSA 06/15/23 07:08 Blood Culture - Preliminary Blood Assessment and Plan (1) Neck abscess Current Visit: Yes Status: Acute Code(s): L02.11 - CUTANEOUS ABSCESS OF NECK SNOMED Code(s): 0335104 (2) MRSA bacteremia Current Visit: Yes Status: Acute Code(s): R78.81 - BACTEREMIA; B95.62 - METHICILLIN RESIS STAPH INFCT CAUSING DISEASES CLASSD ELSR SNOMED Code(s): 51542313525917714 Plan: 1patient presented to hospital with right posterior neck pain swelling and induration with evidence of abscess on the CT and also concerning for possible septic emboli in this patient who do have history of IV drug use high clinic suspicious for likely MRSA, gram-negative infection less likely but not entirely excluded 2CT of the chest did show some multiple nodules suspicious for septic emboli echocardiogram did not show any vegetation MRI of the brain did not show any septic emboli or acute changes, the patient did have a MARCO that was negative for any vegetation 3patient to continue the vancomycin pharmacy to dose with target trough of 15 and will watch his kidney function closely. Dictation was produced using [employer] dictation software. please excuse any grammatical, word or spelling errors. Time with Patient: Less than 30
--- NOTE | 2023-06-17 16:15 | P.PN ---
Subjective Progress Note Date: 06/17/23 Principal diagnosis: Neck abscess Patient was seen at bedside this morning sitting up in chair in the ICU. Dressing is present over right posterior cervical spine. Patient says his pain is controlled at this time. Patient is able to move all extremities at this time. Patient denies any other changes at this time. Patient denies chest pain, fever, nausea, vomiting, change in vision, loss of bowel/bladder control. Objective - Vital Signs Vital signs: Vital Signs Temp 98.4 F 06/17/23 12:00 Pulse 71 06/17/23 12:00 Resp 32 H 06/17/23 12:00 BP 154/88 06/17/23 12:00 Pulse Ox 95 06/17/23 12:00 FiO2 Intake & Output 06/16/23 06/17/23 06/17/23 18:59 06:59 18:59 Intake Total 900 900 225 Output Total 2049 1999 600 Balance -1150 -1100 -375 Weight 83.6 kg Intake: IV 900 900 225 Sodium Chloride 0.9% 1, 900 900 225 000 ml @ 75 mls/hr IV . [id number] [facility] Rx#:[id number] Output: Urine 2049 1999 600 Other: Voiding Method Toilet Toilet Toilet Bedside Commode Bedside Commode Urinal Urinal Urinal # Voids 0 1 # Bowel Movements 1 - Exam Inspection: Foam tape present over the right side posterior cervical spine. Dressing was changed at bedside this morning. Some iodoform gauze was removed from wound. Drain was removed. Negative for any active drainage at this time. Incision appears to be healing well. Sutures are in place. Sensation: Equal, symmetric, bilaterally intact at the upper and lower extremities Palpation: Moderate tenderness to palpation directly over incision Nontender to palpation throughout rest of exam. Range of motion: Patient has full range of motion throughout bilateral upper and lower extremities on exam. Motor: 4+/5 in all major motor groups in bilateral upper extremity is in exam. Neurovascular: Radial pulses intact, 2+ bilaterally. Cap refill under 3 seconds in digits of upper extremities. Special tests: Negative Homans bilaterally. Negative Tina bilaterally. Negative clonus bilaterally. - Labs CBC & Chem 7: 06/17/23 05:35 06/17/23 05:35 Labs: Abnormal Lab Results - Last 24 Hours (Table) 06/17/23 Range/Units 05:35 WBC 22.1 H (3.8-10.6) k/uL Neutrophils # 18.1 H (1.3-7.7) k/uL Monocytes # 1.7 H (0-1.0) k/uL Microbiology - Last 24 Hours (Table) 06/16/23 04:28 Blood Culture - Preliminary Blood 06/15/23 20:01 Gram Stain - Preliminary Neck Wound Culture - Preliminary Presumptive MRSA 06/15/23 07:08 Blood Culture - Preliminary Blood Assessment and Plan Assessment: 1. Neck abscess Plan: 1. Neck abscess- patient stable at bedside this morning in ICU. Surgery performed, 06/15/2023incision and drainage of neck abscess. Cultures pending at this time. Continue IV antibiotics. Appreciate other specialties recommendations. Patient may weight-bear as tolerated. Dressing was changed at bedside this morning. Some iodoform gauze was removed from wound. Drain was removed. Negative for any active drainage at this time. Incision appears to be healing well. Sutures are in place. Plan for daily dressing changes with half iodogauze removal per day. Pain medication as needed. Patient to follow-up with Dr. Sanchez in 2 weeks in office for postoperative eval. Patient is st able from orthopedic standpoint for discharge home. At this time orthopedics is signing off. Please do not hesitate to contact us for any further questions. 2. Appreciate medical management 3. Pain management - Tylenol; methadone; Toradol 4. GI prophylaxis recs 5. DVT prophylaxis - Lovenox 6. PT/OT - WBAT Time with Patient: Less than 30
[2023-06-17] MEDS: ACETAMINOPHEN TAB 500 MG TAB PO PRN (17:20)
[2023-06-17] MEDS: cloNIDine HCL 0.1 MG TAB PO PRN (17:21)
[2023-06-17] MEDS ORDERED: METHADONE 5 MG TAB PO SCH (21:00)
[2023-06-17] MEDS: METHADONE 10 MG TAB PO SCH (22:18)
[2023-06-18] MEDS: VANCOMYCIN 1,750 MG in SODIUM CHLORIDE 0.9% 500 ML 500 ML IVPB SCH ×3 (04:35→20:33)
[2023-06-18] MEDS: ACETAMINOPHEN TAB 500 MG TAB PO PRN ×3 (04:39→23:09)
[2023-06-18 07:42] LABS: Basophils # (A) 0.1 k/uL (0-0.2); Basophils % (A) 0 %; Eosinophils # (A) 0.3 k/uL (0-0.7); Eosinophils % (A) 1 %; HCT 41.2 % (39.0-53.0); HGB 13.4 gm/dL (13.0-17.5); Lymphocytes # (A) 1.4 k/uL (1.0-4.8); Lymphocytes % (A) 6 %; MCH 31.3 pg (25.0-35.0); MCHC 32.5 g/dL (31.0-37.0); MCV 96.5 fL (80.0-100.0); Mean Platelet Volume 9.6; Monocytes # (A) 1.5 k/uL (0-1.0); Monocytes % (A) 7 %; Neutrophils # (A) 19.1 k/uL (1.3-7.7); Neutrophils % (A) 84 %; Platelet Count 385 k/uL (150-450); RBC 4.27 m/uL (4.30-5.90); WBC 22.8 k/uL (3.8-10.6)
[2023-06-18 07:58] LABS: African American GFR (CKD) >90 (>60 ml/min/1.73 sqM); Anion Gap 8 mmol/L; Blood Urea Nitrogen 9 mg/dL (9-20); Calcium 8.6 mg/dL (8.4-10.2); Carbon Dioxide 24 mmol/L (22-30); Chloride 104 mmol/L (98-107); Glucose 115 mg/dL (74-99); Non-African American GFR(CKD) >90 (>60 ml/min/1.73 sqM); Potassium 4.3 mmol/L (3.5-5.1); Sodium 136 mmol/L (137-145)
[2023-06-18] MEDS: METHADONE 10 MG TAB PO SCH (08:12)
[2023-06-18] MEDS: ENOXAPARIN 40 MG/0.4 ML SYRINGE SQ SCH (08:13)
[2023-06-18] MEDS: NICOTINE 21MG/24HR PATCH TRANSDERM SCH (08:13)
[2023-06-18] MEDS: IPRATROPIUM-ALBUTEROL 3 ML NEB INHALATION SCH ×4 (08:47→20:59)
--- NOTE | 2023-06-18 09:16 | XR ---
EXAMINATION TYPE: XR chest 1V portable DATE OF EXAM: 06/18/2023 COMPARISON: 06/12/2023 HISTORY: Cough TECHNIQUE: Single frontal view of the chest is obtained. FINDINGS: Bilateral consolidation. More nodular area mass right upper lobe. Heart is enlarged. No ov ert failure or pneumothorax. IMPRESSION: Bilateral areas of consolidation and small right effusion. More nodular masslike consoli dation right upper lobe.
--- NOTE | 2023-06-18 11:32 | P.PN ---
Subjective Progress Note Date: 06/18/23 I am seeing this patient in new consultation today 06/15/2023 after he presented back on June 13 with concerns of right neck abscess patient is a 32-year-old white male with past medical history significant for IV drug abuse, hepatitis C, and is a current smoker. Patient originally presented to the emergency room on June 12 with concerns of right neck cellulitis/abscess. He says that it looked like a "spider bite". He was originally discharged home on Bactrim. He did try and drain the abscess with a nail and razor blade at home. He progressively became more weak and had subjective fevers at home. He continues to use IV heroin. He did come back to the emergency room on June 13. CT of the neck shows a 6 x 2 x 3 cm thin walled fluid collection within the right neck. Blood cultures are positive for presumptive MRSA. Chest CT shows multiple bilateral pulmonary cavitating nodules and masses. Considering the patient's history, these are concerning for septic emboli. There is a loculated right pleural effusion at the lung base. A 2-D transthoracic echocardiogram is pending. Patient has been started on IV vancomycin. CBC from yesterday shows a WBC count of 22.6, hemoglobin 13.3, hematocrit 40.9, platelets 272. BMP from admission shows a sodium 133, potassium 4.3, chloride 106, serum bicarb 20, BUN 19, creatinine 1.07, glucose 117. Patient is currently sitting u p in bed, on room air, in no acute distress. He continues to be febrile with a T-max of 102.6F. Patient is hemodynamically stable at this time. The patient is seen today 06/16/2023 in follow-up in the intensive care unit. He is currently sitting up in bed. Awake and alert in no acute distress. He did have a fever early this morning of 101.2. He is maintaining O2 saturations in the 90s on 2 L/m per nasal cannula. He's been hemodynamically stable. He did undergo transesophageal echocardiogram which did not reveal any evidence of infective endocarditis. MRI of the head and neck did reveal a right posterior neck phlegmonos changes and early abscess. No evidence for extension into the brain. No evidence of osteitis. Blood cultures are positive for MRSA. White count 19.7. Hemoglobin 13.7. Platelets 185. Sodium 132. Potassium 4.7. Bicarb 22. BUN 17. Creatinine 0.81. Glucose 102. He is continued on vancomycin. Lovenox for DVT prophylaxis. NicoDerm patch in place. Normal saline at 75 ML's per hour. The patient is seen today 06/17/2023 in follow-up in the intensive care unit. He is currently sitting up in bed. Awake and alert in no acute distress. Maintaining O2 saturations in the 90s on 2 L/m per nasal cannula. He did undergo incision and drainage with irrigation and debridement of the right posterior neck abscess yesterday. Cultures positive for MRSA as well. White count 22.1. Hemoglobin 13.6. Platelets 364. Creatinine 0.78. GFR greater than 90. Vancomycin trough 9.4. He remains on vancomycin. NicoDerm patch in place. Lovenox for DVT prophylaxis. Continued on DuoNeb inhalations. The patient is seen today 06/18/2023 in follow-up on the regular medical floor. He is resting comfortably in bed. Awake and alert in no acute distress. Meagan ntaining good O2 saturations in the 90s on room air. Chest x-ray continues show bilateral areas of consolidation and a small right effusion. More nodular masslike consolidation in the right upper lobe. Blood cultures positive for MRSA. Neck wound culture positive for MRSA. Follow-up blood cultures are pending. He's been on vancomycin. Lovenox for DVT prophylaxis. NicoDerm patches in place. White count 22.8. Hemoglobin 13.4. Platelets 385. Sodium 136. Potassium 4.3. Bicarb 24. BUN 9. Creatinine 0.75. Glucose 115. Objective - Vital Signs Vital signs: Vital Signs Temp 98.4 F 06/18/23 08:00 Pulse 71 06/18/23 08:00 Resp 16 06/18/23 08:00 BP 146/79 06/18/23 08:00 Pulse Ox 95 06/18/23 08:00 FiO2 Intake & Output 06/17/23 06/18/23 06/18/23 18:59 06:59 18:59 Intake Total 725 118 Output Total 600 1500 Balance 125 -1500 118 Intake: IV 225 Sodium Chloride 0.9% 1, 225 000 ml @ 75 mls/hr IV . [id number] [facility] Rx#:[id number] Intake, IV Titration 500 Amount Vancomycin 1,750 mg In 500 Sodium Chloride 0.9% 500 ml 500 ml @ 167 mls/hr IVPB Q8H [facility] Rx#: [id number] Oral 118 Output: Urine 600 1500 Other: Voiding Method Toilet Toilet Toilet Urinal Urinal Urinal # Voids 1 # Bowel Movements 1 - Exam GENERAL EXAM: Alert, 32-year-old male, sitting up in bed, on 2 L nasal cannula, comfortable in no apparent distress. HEAD: Normocephalic and atraumatic EYES: Normal reaction of pupils, equal size. NOSE: Clear with pink turbinates. THROAT: No erythema or exudates. NECK: No masses, no JVD. Right neck abscess that is hard with a small fluctuant center. CHEST: No chest wall deformity. Seen over right neck area dry and intact. LUNGS: Equal air entry with no crackles, wheeze, rhonchi or dullness. CVS: S1 and S2 normal with no audible murmur, regular rhythm. No extra heart sounds ABDOMEN: No hepatosplenomegaly, active bowel sounds, no guarding or rigidity. SPINE: No scoliosis or deformity SKIN: No rashes CENTRAL NERVOUS SYSTEM: No focal deficits, tone is normal in all 4 extremities. EXTREMITIES: There is no peripheral edema, clubbing, or cyanosis. Peripheral pulses are intact. - Labs CBC & Chem 7: 06/18/23 07:10 06/18/23 07:10 Labs: Abnormal Lab Results - Last 24 Hours (Table) 06/18/23 06/18/23 Range/Units 07:10 07:10 WBC 22.8 H (3.8-10.6) k/uL RBC 4.27 L (4.30-5.90) m/uL Neutrophils # 19.1 H (1.3-7.7) k/uL Monocytes # 1.5 H (0-1.0) k/uL Sodium 136 L (137-145) mmol/L Glucose 115 H (74-99) mg/dL Microbiology - Last 24 Hours (Table) 06/15/23 20:01 Anaerobic Culture - Preliminary Neck 06/15/23 20:01 Gram Stain - Final Neck Wound Culture - Final Methicillin resist S. aureus 06/15/23 07:08 Blood Culture - Preliminary Blood 06/16/23 04:28 Blood Culture - Preliminary Blood Assessment and Plan Assessment: Right neck abscess, CT of the neck shows a 6 x 2 x 3 cm thin walled fluid collection within the right neck. Status post incision and drainage. Cultures revealing MRSA. MRI of the head and neck reveals a right posterior neck phlegmon as changes and early abscess. No evidence for extension into the brain. No evidence of osteitis. Currently on vancomycin. Transesophageal echocardiogram did not reveal any evidence of infective endocarditis. MRSA bacteremia secondary to above Leukocytosis, secondary to above Multiple cavitating pulmonary nodules and masses, concerning for septic emboli. Doubt malignancy, due to patient's age. Loculated right pleural effusion History of hepatitis C Polysubstance abuse and IV drug abuse Current tobacco smoker Plan: The patient was seen and evaluated Medications and labs reviewed Right neck abscess and blood cultures positive for MRSA Continues on vancomycin and ID service on the case Educated regarding the importance of IV drug use cessation Educated regarding importance of complete smoking cessation NicoDerm patch in place We will continue to follow I have personally seen and examined the patient, performed the documentation and the assessment and plan as written. Number of minutes spent on the visit: 10.
--- NOTE | 2023-06-18 12:33 | P.PN ---
Subjective Progress Note Date: 06/18/23 Principal diagnosis: Neck abscess MRSA bacteremia and possible septic emboli Patient is a 32-year-old male with a past medical history Nupercaine for IV drug use current everyday smoker presenting to the hospital for evaluation of painful lump to the right side of the posterior neck, patient did have a CT of the neck with evidence of fluid collection suspicious for abscess also with multiple pulmonary nodules suspicious for septic emboli. Patient did have a drainage of the posterior neck abscess by orthopedics on 06/15/2023, the patient did have a MARCO completed on 06/16/2023 that was negative for any vegetation On today's evaluation that is 06/18/2023, the patient continues to be afebrile, , the patient is breathing comfortably on room air , the patient denies chest pain shortness or cough, patient denies nausea / vomiting and no diarrhea, denies having any abdominal pain, the patient denies any worsening pain to the neck area Patient white count is 22.8, creatinine is 0.75, blood culture 06/15/2023 also positive, blood cultures from 06/16/2023 as well as 06/17/2023 currently pending Objective - Vital Signs Vital signs: Vital Signs Temp 98.4 F 06/18/23 08:00 Pulse 71 06/18/23 08:00 Resp 16 06/18/23 08:00 BP 146/79 06/18/23 08:00 Pulse Ox 95 06/18/23 08:00 FiO2 Intake & Output 06/17/23 06/18/23 06/18/23 18:59 06:59 18:59 Intake Total 725 118 Output Total 600 1500 Balance 125 -1500 118 Intake: IV 225 Sodium Chloride 0.9% 1, 225 000 ml @ 75 mls/hr IV . [id number] [facility] Rx#:[id number] Intake, IV Titration 500 Amount Vancomycin 1,750 mg In 500 Sodium Chloride 0.9% 500 ml 500 ml @ 167 mls/hr IVPB Q8H [facility] Rx#: [id number] Oral 118 Output: Urine 600 1500 Other: Voiding Method Toilet Toilet Toilet Urinal Urinal Urinal # Voids 1 # Bowel Movements 1 - Exam GENERAL DESCRIPTION: A middle-age male lying in bed in no distress HEENT: Posterior neck area with area of induration swelling and tenderness RESPIRATORY SYSTEM: Unlabored breathing , decreased breath sounds at bases HEART: S1 S2 regular rate and rhythm , ABDOMEN: Soft , no tenderness EXTREMITIES: No edema feet - Labs CBC & Chem 7: 06/18/23 07:10 06/18/23 07:10 Labs: Abnormal Lab Results - Last 24 Hours (Table) 06/18/23 06/18/23 Range/Units 07:10 07:10 WBC 22.8 H (3.8-10.6) k/uL RBC 4.27 L (4.30-5.90) m/uL Neutrophils # 19.1 H (1.3-7.7) k/uL Monocytes # 1.5 H (0-1.0) k/uL Sodium 136 L (137-145) mmol/L Glucose 115 H (74-99) mg/dL Microbiology - Last 24 Hours (Table) 06/15/23 20:01 Anaerobic Culture - Preliminary Neck 06/15/23 20:01 Gram Stain - Final Neck Wound Culture - Final Methicillin resist S. aureus 06/15/23 07:08 Blood Culture - Preliminary Blood 06/16/23 04:28 Blood Culture - Preliminary Blood Assessment and Plan (1) Neck abscess Current Visit: Yes Status: Acute Code(s): L02.11 - CUTANEOUS ABSCESS OF NECK SNOMED Code(s): 2162031 (2) MRSA bacteremia Current Visit: Yes Status: Acute Code(s): R78.81 - BACTEREMIA; B95.62 - METHICILLIN RESIS STAPH INFCT CAUSING DISEASES CLASSD ELSR SNOMED Code(s): 12129631699011142 Plan: 1patient presented to hospital with right posterior neck pain swelling and induration with evidence of abscess on the CT and also concerning for possible septic emboli in this patient who do have history of IV drug use high clinic suspicious for likely MRSA, gram-negative infection less likely but not entirely excluded 2CT of the chest did show some multiple nodules suspicious for septic emboli echocardiogram did not show any vegetation MRI of the brain did not show any septic emboli or acute changes, the patient did have a MARCO that was negative for any vegetation 3patient is afebrile, white count is still elevated which is slightly concerning, for now continue the vancomycin pharmacy to dose with target trough of 15 and will watch his kidney function closely. Dictation was produced using [employer]ation software. please excuse any grammatical, word or spelling errors. Time with Patient: Less than 30
--- NOTE | 2023-06-18 13:58 | CDI ---
Documentation Clarification Form Date: 06/18/2023 01:56:14 PM From: Danya Sanderson RN,CCDS Admit Date: 06/13/2023 12:23:00 AM Patient Name: Baltazar Sanabria Visit Number: [id number] Discharge Date: ATTENTION: The Clinical Documentation Specialists (CDI) and [facility] Coding Staff appreciate your assistance in clarifying documentation. Please respond to the clarification below the line at the bottom and electronically sign. The CDI & [facility] Coding staff will review the response and follow-up if needed. Please note: Queries are made part of the Legal Health Record. If you have any questions, please contact the author of this message via ITS. Dr. Yeison Lee There is documentation of MRSA bacteremia in the ongoing progress notes starting on 06/14/2023. Bacteremia is considered a lab finding. Additional clarification regarding bacteremia is requested. Patient history/risk factors: History of IVDA, Current every day smoker Clinical Indicators: 32-year-old male who presents to the ED with worsening of redness and pain in his neck that travels down his upper back. He was ruled in for Posterior right neck abscess, Sepsis. 06/13 CT of the neck with evidence of fluid collection suspicious for abscess also with multiple pulmonary nodules suspicious for septic emboli. 06/12 Blood cultures: MRSA 06/15 Wound culture: MRSA 06/12 WBC: 27.8 Neutrophils 25.2 Na 135, BUN 24 CR 1.18 Lactic acid 1.3 06/14 ID Progress note: Neck abscess MRSA bacteremia and possible septic emboli Treatment: Vancomycin 15,00MG IVPB Once then Q12 HRS 06/13 -06/17 (PTD) .9NS 1,000 ML/HR IV Bolus 06/12then 75 ML/HR -06/17 Zosyn 3.375 GM IVPB 06/14 Cefepime HCL 2 GM IVPB Q 8 HR 06/13-06/14 Please provide additional clarification regarding the etiology/cause and/or clinical significance of the bacteremia: [ x] MRSA Bacteremia is related to sepsis, secondary to right neck abscess [ ] Other, please specify [ ] Unable to determine (Template Last Revised: November 2020) MTDD
--- NOTE | 2023-06-18 14:37 | P.PN ---
Subjective Progress Note Date: 06/18/23 Patient is a 32-year-old male with heroin abuse who presented to the ER with complaints of right neck ulceration with pain and swelling. Patient had been clean for approximately 4 months when he relapsed 6 days ago. He was seen in the emergency department on ingrown pimple on the back of his neck and he was prescribed Bactrim. A repeat set at less than 24 hours later due to worsening infection. On arrival to the ER his vital signs are within normal limits. Laboratory analysis was remarkable for white blood cell count of 27.8, sodium 135, BUN 24. Chest x-ray showed no acute process. There was concern for worsening cellulitis despite oral antibiotics and is therefore admitted and pl aced on vancomycin and Zosyn. He was started on IV fluids. The next morning he was having worsening neck pain as well as withdrawal symptoms. Patient found to be bacteremic with chest CT concerning for septic emboli. ID, pulmonology, orthopedic surgery following. Patient currently in medical ICU. Patient had I&D. TTE did not show any vegetations, MARCO also did not show any vegetations. Remains on IV vancomycin. Repeat blood cultures have been negative so far. Patient seen and examined at bedside. No acute events overnight. Vital signs reviewed General: nontoxic, NAD, appears at stated age Cardiovascular: S1S2 , no murmur, positive posterior tibial pulse bilateral, Dermatologic: Neck dressing clean, dry, intact Lungs: Bilateral rales, no accessory muscle use, supplemental oxygen Abdominal: soft, nontender to palpation, no guarding, no appreciable organomegaly Ext: no gross muscle atrophy, no edema b/l lower extremities, no contractures Neuro: CN II-XI grossly intact, no focal neuro deficits Psych: Alert, oriented, appropriate affect Assessment/Plan: Posterior right neck abscess status post I&D MRSA bacteremia Bilateral lung nodules with mass, appears more so like septic emboli Sepsis Loculated right lung base pleural effusion -Repeat blood cultures have been negative growth to date -Discussed managment with ID, will need IV abx at discharge -Neck abscess growing MRSA, likely source of bacteremia -Vancomycin with dosing based on trough. Monitor toxicity by following vancomycin trough levels and creatinine levels -IV fluids normal saline to 75 mL/h -Discussed management per pulmonology, loculated effusion too small to drain, has multiple septations Heroin dependency - Wean Methadone, currently on 2.5 mg daily for pain -Catapres 0.1 mg by mouth 3 times daily as needed for withdrawal symptoms Vitreous Floaters -Ophthalmology consultation reviewed: Patient only agreed to limited exam. Does not appear to have a serious eye problem. Imaging: No new imaging Data Review: WBC 22.8, Cr 0.75 DVT prophylaxis: Lovenox Anticipated discharge date: Pending Clinical Course Anticipated discharge place: Pending Clinical Course, if needed to have IV ant ibiotics at the time of discharge, patient is agreeable to go to a nursing facility Objective - Vital Signs Vital signs: Vital Signs Temp 99.6 F 06/18/23 14:00 Pulse 101 H 06/18/23 14:00 Resp 16 06/18/23 14:00 BP 157/79 06/18/23 14:00 Pulse Ox 93 L 06/18/23 14:00 FiO2 Intake & Output 06/17/23 06/18/23 06/18/23 18:59 06:59 18:59 Intake Total 725 118 Output Total 600 1500 Balance 125 -1500 118 Intake: IV 225 Sodium Chloride 0.9% 1, 225 000 ml @ 75 mls/hr IV . [id number] [facility] Rx#:[id number] Intake, IV Titration 500 Amount Vancomycin 1,750 mg In 500 Sodium Chloride 0.9% 500 ml 500 ml @ 167 mls/hr IVPB Q8H [facility] Rx#: [id number] Oral 118 Output: Urine 600 1500 Other: Voiding Method Toilet Toilet Toilet Urinal Urinal Urinal # Voids 1 3 # Bowel Movements 1 1 - Labs CBC & Chem 7: 06/18/23 07:10 06/18/23 07:10 Labs: Abnormal Lab Results - Last 24 Hours (Table) 06/18/23 06/18/23 Range/Units 07:10 07:10 WBC 22.8 H (3.8-10.6) k/uL RBC 4.27 L (4.30-5.90) m/uL Neutrophils # 19.1 H (1.3-7.7) k/uL Monocytes # 1.5 H (0-1.0) k/uL Sodium 136 L (137-145) mmol/L Glucose 115 H (74-99) mg/dL Microbiology - Last 24 Hours (Table) 06/17/23 05:35 Blood Culture - Preliminary Blood 06/16/23 04:28 Blood Culture - Preliminary Blood 06/15/23 20:01 Anaerobic Culture - Preliminary Neck 06/15/23 20:01 Gram Stain - Final Neck Wound Culture - Final Methicillin resist S. aureus 06/15/23 07:08 Blood Culture - Preliminary Blood
[2023-06-18 14:47] VITALS: BMI 27.2
[2023-06-18] MEDS ORDERED: VANCOMYCIN TROUGH DUE 1 EACH MISC MISCELLANE ONE (20:00)
[2023-06-18] MEDS: cloNIDine HCL 0.1 MG TAB PO PRN (23:09)
[2023-06-18] MEDS: ZOLPIDEM 5 MG TAB PO PRN (23:46)
[2023-06-19] MEDS: ACETAMINOPHEN TAB 500 MG TAB PO PRN ×2 (03:52→20:06)
[2023-06-19] MEDS: VANCOMYCIN 1,750 MG in SODIUM CHLORIDE 0.9% 500 ML 500 ML IVPB SCH ×3 (03:53→21:51)
[2023-06-19] MEDS: ENOXAPARIN 40 MG/0.4 ML SYRINGE SQ SCH (08:18)
[2023-06-19] MEDS: NICOTINE 21MG/24HR PATCH TRANSDERM SCH (08:18)
[2023-06-19] MEDS: METHADONE 5 MG TAB PO SCH (08:39)
[2023-06-19] MEDS: IPRATROPIUM-ALBUTEROL 3 ML NEB INHALATION SCH ×4 (08:45→20:06)
[2023-06-19 09:17] LABS: African American GFR (CKD) >90 (>60 ml/min/1.73 sqM); Non-African American GFR(CKD) >90 (>60 ml/min/1.73 sqM)
--- NOTE | 2023-06-19 11:59 | P.PN ---
Subjective Progress Note Date: 06/19/23 Patient is a 32-year-old male with heroin abuse who presented to the ER with complaints of right neck ulceration with pain and swelling. Patient had been clean for approximately 4 months when he relapsed 6 days ago. He was seen in the emergency department on ingrown pimple on the back of his neck and he was prescribed Bactrim. A repeat set at less than 24 hours later due to worsening infection. On arrival to the ER his vital signs are within normal limits. Laboratory analysis was remarkable for white blood cell count of 27.8, sodium 135, BUN 24. Chest x-ray showed no acute process. There was concern for worsening cellulitis despite oral antibiotics and is therefore admitted and placed on vancomycin and Zosyn. He was started on IV fluids. The next morning he was having worsening neck pain as well as withdrawal symptoms. Patient found to be bacteremic with chest CT concerning for septic emboli. ID, pulmonology, orthopedic surgery following. Patient currently in medical ICU. Patient had I&D. TTE did not show any vegetations, MARCO also did not show any vegetations. Remains on IV vancomycin. Repeat blood cultures have been negative so far. Patient pending discharge to nursing facility. Patient seen and examined at bedside. No acute events overnight. Vital signs reviewed General: nontoxic, NAD, appears at stated age Cardiovascular: S1S2 , no murmur, positive posterior tibial pulse bilateral, Dermatologic: Neck dressing clean, dry, intact Lungs: Bilateral rales, no accessory muscle use, supplemental oxygen Abdominal: soft, nontender to palpation, no guarding, no appreciable organomegaly Ext: no gross muscle atrophy, no edema b/l lower extremities, no contractures Neuro: CN II-XI grossly intact, no focal neuro deficits Psych: Alert, oriented, appropriate affect Assessment/Plan: Posterior right neck abscess status post I&D MRSA bacteremia Bilateral lung nodules with mass, appears more so like septic emboli Sepsis Loculated right lung base pleural effusion -Repeat blood cultures have been negative growth to date -ID following, will need IV abx at discharge -Neck abscess growing MRSA, likely source of bacteremia -Vancomycin with dosing based on trough. Monitor toxicity by following vancomycin trough levels and creatinine levels -IV fluids normal saline to 75 mL/h -Pulmonology following, loculated effusion too small to drain, has multiple septations Heroin dependency - Wean Methadone, currently on 2.5 mg daily for pain -Catapres 0.1 mg by mouth 3 times daily as needed for withdrawal symptoms Vitreous Floaters -Ophthalmology consultation reviewed: Patient only agreed to limited exam. Does not appear to have a serious eye problem. Imaging: No new imaging Data Review: Creatinine 0.83 DVT prophylaxis: Lovenox Anticipated discharge date: Pending Clinical Course Anticipated discharge place: Pending Clinical Course, if needed to have IV antibiotics at the time of discharge, patient is agreeable to go to a nursing [facility] Objective - Vital Signs Vital signs: Vital Signs Temp 98.9 F 06/19/23 02:00 Pulse 71 06/19/23 08:55 Resp 18 06/19/23 02:00 BP 148/85 06/19/23 02:00 Pulse Ox 94 L 06/19/23 02:00 FiO2 Intake & Output 06/18/23 06/19/23 06/19/23 18:59 06:59 18:59 Intake Total 236 Balance 236 Weight 83.6 kg Intake: Oral 236 Other: Voiding Method Toilet Toilet Toilet Urinal # Voids 3 3 # Bowel Movements 1 - Labs CBC & Chem 7: 06/18/23 07:10 06/19/23 08:33 Labs: Microbiology - Last 24 Hours (Table) 06/15/23 07:08 Blood Culture - Preliminary Blood 06/17/23 05:35 Blood Culture - Preliminary Blood 06/16/23 04:28 Blood Culture - Preliminary Blood
--- NOTE | 2023-06-19 12:14 | P.PN ---
Subjective Progress Note Date: 06/19/23 I am seeing this patient in new consultation today 06/15/2023 after he presented back on June 13 with concerns of right neck abscess patient is a 32-year-old white male with past medical history significant for IV drug abuse, hepatitis C, and is a current smoker. Patient originally presented to the emergency room on June 12 with concerns of right neck cellulitis/abscess. He says that it looked like a "spider bite". He was originally discharged home on Bactrim. He did try and drain the abscess with a nail and razor blade at home. He progressively became more weak and had subjective fevers at home. He continues to use IV heroin. He did come back to the emergency room on June 13. CT of the neck shows a 6 x 2 x 3 cm thin walled fluid collection within the right neck. Blood cultures are positive for presumptive MRSA. Chest CT shows multiple bilateral pulmonary cavitating nodules and masses. Considering the patient's history, these are concerning for septic emboli. There is a loculated right pleural effusion at the lung base. A 2-D transthoracic echocardiogram is pending. Patient has been started on IV vancomycin. CBC from yesterday shows a WBC count of 22.6, hemoglobin 13.3, hematocrit 40.9, platelets 272. BMP from admission shows a sodium 133, potassium 4.3, chloride 106, serum bicarb 20, BUN 19, creatinine 1.07, glucose 117. Patient is currently sitting u p in bed, on room air, in no acute distress. He continues to be febrile with a T-max of 102.6F. Patient is hemodynamically stable at this time. The patient is seen today 06/16/2023 in follow-up in the intensive care unit. He is currently sitting up in bed. Awake and alert in no acute distress. He did have a fever early this morning of 101.2. He is maintaining O2 saturations in the 90s on 2 L/m per nasal cannula. He's been hemodynamically stable. He did undergo transesophageal echocardiogram which did not reveal any evidence of infective endocarditis. MRI of the head and neck did reveal a right posterior neck phlegmonos changes and early abscess. No evidence for extension into the brain. No evidence of osteitis. Blood cultures are positive for MRSA. White count 19.7. Hemoglobin 13.7. Platelets 185. Sodium 132. Potassium 4.7. Bicarb 22. BUN 17. Creatinine 0.81. Glucose 102. He is continued on vancomycin. Lovenox for DVT prophylaxis. NicoDerm patch in place. Normal saline at 75 ML's per hour. The patient is seen today 06/17/2023 in follow-up in the intensive care unit. He is currently sitting up in bed. Awake and alert in no acute distress. Maintaining O2 saturations in the 90s on 2 L/m per nasal cannula. He did undergo incision and drainage with irrigation and debridement of the right posterior neck abscess yesterday. Cultures positive for MRSA as well. White count 22.1. Hemoglobin 13.6. Platelets 364. Creatinine 0.78. GFR greater than 90. Vancomycin trough 9.4. He remains on vancomycin. NicoDerm patch in place. Lovenox for DVT prophylaxis. Continued on DuoNeb inhalations. The patient is seen today 06/18/2023 in follow-up on the regular medical floor. He is resting comfortably in bed. Awake and alert in no acute distress. Meagan ntaining good O2 saturations in the 90s on room air. Chest x-ray continues show bilateral areas of consolidation and a small right effusion. More nodular masslike consolidation in the right upper lobe. Blood cultures positive for MRSA. Neck wound culture positive for MRSA. Follow-up blood cultures are pending. He's been on vancomycin. Lovenox for DVT prophylaxis. NicoDerm patches in place. White count 22.8. Hemoglobin 13.4. Platelets 385. Sodium 136. Potassium 4.3. Bicarb 24. BUN 9. Creatinine 0.75. Glucose 115. The patient is seen today 06/19/2023 in follow-up on the regular medical floor. He is currently awake and alert in no acute distress. Resting comfortably in bed. No worsening shortness of breath, cough or congestion. Maintaining good O2 saturations in the 90s on room air. He is continued on bronchodilators. Lovenox for DVT prophylaxis. NicoDerm patch in place. He is continued on vancomycin. Blood cultures and right neck wound cultures were positive for MRSA. Follow-up blood cultures are pending. Creatinine 0.83. GFR greater than 90. Vancomycin trough 12.9. Objective - Vital Signs Vital signs: Vital Signs Temp 98.9 F 06/19/23 02:00 Pulse 71 06/19/23 08:55 Resp 18 06/19/23 02:00 BP 148/85 06/19/23 02:00 Pulse Ox 94 L 06/19/23 02:00 FiO2 Intake & Output 06/18/23 06/19/23 06/19/23 18:59 06:59 18:59 Intake Total 236 Balance 236 Weight 83.6 kg Intake: Oral 236 Other: Voiding Method Toilet Toilet Toilet Urinal # Voids 3 3 # Bowel Movements 1 - Exam GENERAL EXAM: Alert, 32-year-old male, sitting up in bed, on room air, comfortable in no apparent distress. HEAD: Normocephalic and atraumatic EYES: Normal reaction of pupils, equal size. NOSE: Clear with pink turbinates. THROAT: No erythema or exudates. NECK: No masses, no JVD. Right neck dressing dry and intact. CHEST: No chest wall deformity. LUNGS: Equal air entry with no crackles, wheeze, rhonchi or dullness. CVS: S1 and S2 normal with no audible murmur, regular rhythm. No extra heart sounds ABDOMEN: No hepatosplenomegaly, active bowel sounds, no guarding or rigidity. SPINE: No scoliosis or deformity SKIN: No rashes CENTRAL NERVOUS SYSTEM: No focal deficits, tone is normal in all 4 extremities. EXTREMITIES: There is no peripheral edema, clubbing, or cyanosis. Peripheral pulses are intact. - Labs CBC & Chem 7: 06/18/23 07:10 06/19/23 08:33 Labs: Microbiology - Last 24 Hours (Table) 06/15/23 07:08 Blood Culture - Preliminary Blood 06/17/23 05:35 Blood Culture - Preliminary Blood 06/16/23 04:28 Blood Culture - Preliminary Blood Assessment and Plan Assessment: Right neck abscess, CT of the neck shows a 6 x 2 x 3 cm thin walled fluid collection within the right neck. Status post incision and drainage. Cultures revealing MRSA. MRI of the head and neck reveals a right posterior neck phlegmon as changes and early abscess. No evidence for extension into the brain. No evidence of osteitis. Currently on vancomycin. Transesophageal echocardiogram did not reveal any evidence of infective endocarditis. MRSA bacteremia secondary to above Leukocytosis, secondary to above Multiple cavitating pulmonary nodules and masses, concerning for septic emboli. Doubt malignancy, due to patient's age. Loculated right pleural effusion History of hepatitis C Polysubstance abuse and IV drug abuse Current tobacco smoker Plan: The patient was seen and evaluated Medications and labs reviewed Right neck abscess and blood cultures positive for MRSA Continues on vancomycin Needs placement for continued IV therapy All local [facility] have declined the patient Again educated regarding complete drug use cessation, smoking cessation NicoDerm patch in place We will continue to follow I have personally seen and examined the patient, performed the documentation and the assessment and plan as written. Number of minutes spent on the visit: 10.
--- NOTE | 2023-06-19 17:48 | P.PN ---
Subjective Progress Note Date: 06/19/23 Principal diagnosis: Neck abscess MRSA bacteremia and possible septic emboli Patient is a 32-year-old male with a past medical history Nupercaine for IV drug use current everyday smoker presenting to the hospital for evaluation of painful lump to the right side of the posterior neck, patient did have a CT of the neck with evidence of fluid collection suspicious for abscess also with multiple pulmonary nodules suspicious for septic emboli. Patient did have a drainage of the posterior neck abscess by orthopedics on 06/15/2023, the patient did have a MARCO completed on 06/16/2023 that was negative for any vegetation On today's evaluation that is 06/19/2023, the patient remains to be afebrile, , the patient is breathing comfortably on room air, the patient c/o left sided chest pain but no significant cough, patient denies abdominal pain, nausea or vomiting and no diarrhea has been reported by the nursing staff, neck pain improving Patient white count is 22.8 as of 06/18/2023, creatinine is 0.83, blood culture 06/15/2023 also positive, blood cultures from 06/16/2023 as well as 06/17/2023 currently pending Objective - Vital Signs Vital signs: Vital Signs Temp 98.9 F 06/19/23 02:00 Pulse 71 06/19/23 08:55 Resp 18 06/19/23 02:00 BP 148/85 06/19/23 02:00 Pulse Ox 94 L 06/19/23 02:00 FiO2 Intake & Output 06/18/23 06/19/23 06/19/23 18:59 06:59 18:59 Intake Total 236 Balance 236 Weight 83.6 kg Intake: Oral 236 Other: Voiding Method Toilet Toilet Toilet Urinal # Voids 3 3 # Bowel Movements 1 - Exam GENERAL DESCRIPTION: A middle-age male lying in bed in no distress HEENT: Posterior neck area with area of induration swelling and tenderness RESPIRATORY SYSTEM: Unlabored breathing , decreased breath sounds at bases HEART: S1 S2 regular rate and rhythm , ABDOMEN: Soft , no tenderness EXTREMITIES: No edema feet - Labs CBC & Chem 7: 06/18/23 07:10 06/19/23 08:33 Labs: Microbiology - Last 24 Hours (Table) 06/17/23 05:35 Blood Culture - Preliminary Blood 06/16/23 04:28 Blood Culture - Preliminary Blood 06/15/23 07:08 Blood Culture - Preliminary Blood Assessment and Plan (1) Neck abscess Current Visit: Yes Status: Acute Code(s): L02.11 - CUTANEOUS ABSCESS OF NECK SNOMED Code(s): 6481360 (2) MRSA bacteremia Current Visit: Yes Status: Acute Code(s): R78.81 - BACTEREMIA; B95.62 - METHICILLIN RESIS STAPH INFCT [facility] Code(s): 71265525050427515 Plan: 1patient presented to hospital with right posterior neck pain swelling and induration with evidence of abscess on the CT and also concerning for possible septic emboli in this patient who do have history of IV drug use high clinic suspicious for likely MRSA, gram-negative infection less likely but not entirely excluded 2CT of the chest did show some multiple nodules suspicious for septic emboli echocardiogram did not show any vegetation MRI of the brain did not show any septic emboli or acute changes, the patient did have a MARCO that was negative for any vegetation 3patient is afebrile, will repeat WBC and CRP with am labs , continue the vancomycin pharmacy to dose with target trough of 15 PICC once clears bacteremia Dictation was produced using [employer] dictation software. please excuse any grammatical, word or spelling errors. Time with Patient: Less than 30
[2023-06-19] MEDS: ZOLPIDEM 5 MG TAB PO PRN (21:51)
[2023-06-20] MEDS: VANCOMYCIN 1,750 MG in SODIUM CHLORIDE 0.9% 500 ML 500 ML IVPB SCH ×3 (04:08→22:06)
[2023-06-20 06:33] LABS: African American GFR (CKD) >90 (>60 ml/min/1.73 sqM); Non-African American GFR(CKD) >90 (>60 ml/min/1.73 sqM)
[2023-06-20 06:45] LABS: C Reactive Protein 14.2 mg/dL (<1.0)
[2023-06-20] MEDS: NICOTINE 21MG/24HR PATCH TRANSDERM SCH (08:04)
[2023-06-20] MEDS: METHADONE 5 MG TAB PO SCH (08:04)
[2023-06-20] MEDS: ENOXAPARIN 40 MG/0.4 ML SYRINGE SQ SCH (08:06)
--- NOTE | 2023-06-20 08:14 | P.PN ---
Subjective Progress Note Date: 06/20/23 I am seeing this patient in new consultation today 06/15/2023 after he presented back on June 13 with concerns of right neck abscess patient is a 32-year-old white male with past medical history significant for IV drug abuse, hepatitis C, and is a current smoker. Patient originally presented to the emergency room on June 12 with concerns of right neck cellulitis/abscess. He says that it looked like a "spider bite". He was originally discharged home on Bactrim. He did try and drain the abscess with a nail and razor blade at home. He progressively became more weak and had subjective fevers at home. He continues to use IV heroin. He did come back to the emergency room on June 13. CT of the neck shows a 6 x 2 x 3 cm thin walled fluid collection within the right neck. Blood cultures are positive for presumptive MRSA. Chest CT shows multiple bilateral pulmonary cavitating nodules and masses. Considering the patient's history, these are concerning for septic emboli. There is a loculated right pleural effusion at the lung base. A 2-D transthoracic echocardiogram is pending. Patient has been started on IV vancomycin. CBC from yesterday shows a WBC count of 22.6, hemoglobin 13.3, hematocrit 40.9, platelets 272. BMP from admission shows a sodium 133, potassium 4.3, chloride 106, serum bicarb 20, BUN 19, creatinine 1.07, glucose 117. Patient is currently sitting u p in bed, on room air, in no acute distress. He continues to be febrile with a T-max of 102.6F. Patient is hemodynamically stable at this time. The patient is seen today 06/16/2023 in follow-up in the intensive care unit. He is currently sitting up in bed. Awake and alert in no acute distress. He did have a fever early this morning of 101.2. He is maintaining O2 saturations in the 90s on 2 L/m per nasal cannula. He's been hemodynamically stable. He did undergo transesophageal echocardiogram which did not reveal any evidence of infective endocarditis. MRI of the head and neck did reveal a right posterior neck phlegmonos changes and early abscess. No evidence for extension into the brain. No evidence of osteitis. Blood cultures are positive for MRSA. White count 19.7. Hemoglobin 13.7. Platelets 185. Sodium 132. Potassium 4.7. Bicarb 22. BUN 17. Creatinine 0.81. Glucose 102. He is continued on vancomycin. Lovenox for DVT prophylaxis. NicoDerm patch in place. Normal saline at 75 ML's per hour. The patient is seen today 06/17/2023 in follow-up in the intensive care unit. He is currently sitting up in bed. Awake and alert in no acute distress. Maintaining O2 saturations in the 90s on 2 L/m per nasal cannula. He did undergo incision and drainage with irrigation and debridement of the right posterior neck abscess yesterday. Cultures positive for MRSA as well. White count 22.1. Hemoglobin 13.6. Platelets 364. Creatinine 0.78. GFR greater than 90. Vancomycin trough 9.4. He remains on vancomycin. NicoDerm patch in place. Lovenox for DVT prophylaxis. Continued on DuoNeb inhalations. The patient is seen today 06/18/2023 in follow-up on the regular medical floor. He is resting comfortably in bed. Awake and alert in no acute distress. Meagan ntaining good O2 saturations in the 90s on room air. Chest x-ray continues show bilateral areas of consolidation and a small right effusion. More nodular masslike consolidation in the right upper lobe. Blood cultures positive for MRSA. Neck wound culture positive for MRSA. Follow-up blood cultures are pending. He's been on vancomycin. Lovenox for DVT prophylaxis. NicoDerm patches in place. White count 22.8. Hemoglobin 13.4. Platelets 385. Sodium 136. Potassium 4.3. Bicarb 24. BUN 9. Creatinine 0.75. Glucose 115. The patient is seen today 06/19/2023 in follow-up on the regular medical floor. He is currently awake and alert in no acute distress. Resting comfortably in bed. No worsening shortness of breath, cough or congestion. Maintaining good O2 saturations in the 90s on room air. He is continued on bronchodilators. Lovenox for DVT prophylaxis. NicoDerm patch in place. He is continued on vancomycin. Blood cultures and right neck wound cultures were positive for MRSA. Follow-up blood cultures are pending. Creatinine 0.83. GFR greater than 90. Vancomycin trough 12.9. The patient is seen today 06/20/2023 in follow-up on the regular medical floor. He is currently sitting up in a chair at the bedside. Awake and alert in no acute distress. He does have some complaints of shortness of breath. Some difficulty with deep inhalations. He is maintaining good O2 saturations in the 90s on room air. He is continued on bronchodilators. Working with the incentive spirometer. He remains on vancomycin. NicoDerm patch in place. Creatinine 0.74. GFR greater than 90. C-reactive protein 14.2. Objective - Vital Signs Vital signs: Vital Signs Temp 98.5 F 06/20/23 02:09 Pulse 83 06/20/23 02:09 Resp 16 06/20/23 02:09 BP 145/69 06/20/23 02:09 Pulse Ox 95 06/20/23 02:09 FiO2 Intake & Output 06/19/23 06/20/23 06/20/23 18:59 06:59 18:59 Intake Total 240 Balance 240 Intake: Oral 240 Other: Voiding Method Toilet Toilet Urinal # Voids 1 2 - Exam GENERAL EXAM: Alert, pleasant 32-year-old male, up in a chair, on room air, comfortable in no apparent distress. HEAD: Normocephalic and atraumatic EYES: Normal reaction of pupils, equal size. NOSE: Clear with pink turbinates. THROAT: No erythema or exudates. NECK: No masses, no JVD. Right neck dressing dry and intact. CHEST: No chest wall deformity. LUNGS: Equal air entry with few scattered rhonchi. CVS: S1 and S2 normal with no audible murmur, regular rhythm. No extra heart sounds ABDOMEN: No hepatosplenomegaly, active bowel sounds, no guarding or rigidity. SPINE: No scoliosis or deformity SKIN: No rashes CENTRAL NERVOUS SYSTEM: No focal deficits, tone is normal in all 4 extremities. EXTREMITIES: There is no peripheral edema, clubbing, or cyanosis. Peripheral pulses are intact. - Labs CBC & Chem 7: 06/18/23 07:10 06/20/23 06:04 Labs: Abnormal Lab Results - Last 24 Hours (Table) 06/20/23 Range/Units 06:04 C-Reactive Protein 14.2 H (<1.0) mg/dL Microbiology - Last 24 Hours (Table) 06/15/23 20:01 Anaerobic Culture - Final Neck 06/18/23 13:18 Blood Culture - Preliminary Blood 06/17/23 05:35 Blood Culture - Preliminary Blood 06/16/23 04:28 Blood Culture - Preliminary Blood Assessment and Plan Assessment: Right neck abscess, CT of the neck shows a 6 x 2 x 3 cm thin walled fluid collection within the right neck. Status post incision and drainage. Cultures revealing MRSA. MRI of the head and neck reveals a right posterior neck phlegmon as changes and early abscess. No evidence for extension into the brain. No evidence of osteitis. Currently on vancomycin. Transesophageal echocardiogram did not reveal any evidence of infective endocarditis MRSA bacteremia secondary to above Leukocytosis, secondary to above Multiple cavitating pulmonary nodules and masses, concerning for septic emboli. Doubt malignancy, due to patient's age. Loculated right pleural effusion History of hepatitis C Polysubstance abuse and IV drug abuse Current tobacco smoker Plan: The patient was seen and evaluated Medications and labs reviewed Continues on vancomycin Needs placement for continued IV therapy All local [facility] have declined the patient Educated regarding complete drug use cessation, smoking cessation NicoDerm patch in place Stable and on room air We will continue to follow The patient was seen independently by the nurse practitioner I have personally seen and examined the patient, performed the documentation and the assessment and plan as written. Number of minutes spent on the visit: 20.
[2023-06-20] MEDS: IPRATROPIUM-ALBUTEROL 3 ML NEB INHALATION SCH ×4 (08:53→20:22)
[2023-06-20 09:48] LABS: Basophils # (A) 0.22 X 10*3/uL (0.00-0.10); Eosinophils # (A) 0.31 X 10*3/uL (0.04-0.35); Eosinophils % (A) 1.4 %; HCT 40.4 % (39.6-50.0); HGB 13.1 d/dL (13.0-17.0); Lymphocytes # (A) 1.95 X 10*3/uL (0.90-5.00); Lymphocytes % (A) 9.1 %; MCH 30.8 pg (27.0-32.0); MCHC 32.4 d/dL (32.0-37.0); MCV 95.1 FL (80.0-97.0); Mean Platelet Volume 11.1 FL (9.5-12.2); Monocytes # (A) 1.06 X 10*3/uL (0.20-1.00); Monocytes % (A) 4.9 %; NRBC Per 100 WBC 0 X 10*3/uL (0.00-0.01); Neutrophils # (A) 17.19 X 10*3/uL (1.80-7.70); Neutrophils % (A) 79.8 %; Platelet Count 504 X 10*3/uL (140-440); RBC 4.25 X 10*6/uL (4.40-5.60); RDW 13.5 % (11.5-14.5); WBC 21.54 X 10*3/uL (4.50-10.00)
[2023-06-20] MEDS: ACETAMINOPHEN TAB 500 MG TAB PO PRN ×2 (10:37→20:08)
[2023-06-20] MEDS ORDERED: VANCOMYCIN TROUGH DUE 1 EACH MISC MISCELLANE ONE (12:00)
--- NOTE | 2023-06-20 12:58 | P.PN ---
Subjective Progress Note Date: 06/20/23 Patient is a 32-year-old male with heroin abuse who presented to the ER with complaints of right neck ulceration with pain and swelling. Patient had been clean for approximately 4 months when he relapsed 6 days ago. He was seen in the emergency department on ingrown pimple on the back of his neck and he was prescribed Bactrim. A repeat set at less than 24 hours later due to worsening infection. On arrival to the ER his vital signs are within normal limits. Laboratory analysis was remarkable for white blood cell count of 27.8, sodium 135, BUN 24. Chest x-ray showed no acute process. There was concern for worsening cellulitis despite oral antibiotics and is therefore admitted and placed on vancomycin and Zosyn. He was started on IV fluids. The next morning he was having worsening neck pain as well as withdrawal symptoms. Patient found to be bacteremic with chest CT concerning for septic emboli. ID, pulmonology, orthopedic surgery following. Patient currently in medical ICU. Patient had I&D. TTE did not show any vegetations, MARCO also did not show any vegetations. Remains on IV vancomycin. Repeat blood cultures have been negative so far. Patient pending discharge to nursing facility. Patient seen and examined at bedside. No acute events overnight. Vital signs reviewed General: nontoxic, NAD, appears at stated age Cardiovascular: S1S2 , no murmur, positive posterior tibial pulse bilateral, Dermatologic: Neck dressing clean, dry, intact Lungs: Bilateral rales, no accessory muscle use, supplemental oxygen Abdominal: soft, nontender to palpation, no guarding, no appreciable organomegaly Ext: no gross muscle atrophy, no edema b/l lower extremities, no contractures Neuro: CN II-XI grossly intact, no focal neuro deficits Psych: Alert, oriented, appropriate affect Assessment/Plan: Posterior right neck abscess status post I&D MRSA bacteremia Bilateral lung nodules with mass, appears more so like septic emboli Sepsis Loculated right lung base pleural effusion -Repeat blood cultures have been negative growth to date -ID following, will need IV abx at discharge -Neck abscess growing MRSA, likely source of bacteremia -Vancomycin with dosing based on trough. Monitor toxicity by following vancomycin trough levels and creatinine levels -IV fluids normal saline to 75 mL/h -Pulmonology following, loculated effusion too small to drain, has multiple septations Heroin dependency - methadone weaned off -Catapres 0.1 mg by mouth 3 times daily as needed for withdrawal symptoms Vitreous Floaters -Ophthalmology was consulted, Patient only agreed to limited exam. Does not appear to have a serious eye problem. Imaging: No new imaging Data Review: WBC 21.54, Cr 0.74 DVT prophylaxis: Lovenox Anticipated discharge date: Pending Clinical Course Anticipated discharge place: Pending Clinical Course, if needed to have IV antibiotics at the time of discharge, patient is agreeable to go to a nursing facility Objective - Vital Signs Vital signs: Vital Signs Temp 98.2 F 06/20/23 08:00 Pulse 75 06/20/23 08:54 Resp 18 06/20/23 08:00 BP 127/67 06/20/23 08:00 Pulse Ox 90 L 06/20/23 08:00 FiO2 Intake & Output 06/19/23 06/20/23 06/20/23 18:59 06:59 18:59 Intake Total 240 Balance 240 Intake: Oral 240 Other: Voiding Method Toilet Toilet Toilet Urinal Urinal # Voids 1 2 1 - Labs CBC & Chem 7: 06/20/23 06:04 06/20/23 06:04 Labs: Abnormal Lab Results - Last 24 Hours (Table) 06/20/23 06/20/23 Range/Units 06:04 06:04 WBC 21.54 H (4.50-10.00) X 10*3/uL RBC 4.25 L (4.40-5.60) X 10*6/uL Plt Count 504 H (140-440) X 10*3/uL Neutrophils # 17.19 H (1.80-7.70) X 10*3/uL Monocytes # 1.06 H (0.20-1.00) X 10*3/uL Basophils # 0.22 H (0.00-0.10) X 10*3/uL C-Reactive Protein 14.2 H (<1.0) mg/dL Microbiology - Last 24 Hours (Table) 06/15/23 20:01 Anaerobic Culture - Final Neck 06/18/23 13:18 Blood Culture - Preliminary Blood 06/17/23 05:35 Blood Culture - Preliminary Blood 06/16/23 04:28 Blood Culture - Preliminary Blood
--- NOTE | 2023-06-20 21:26 | P.PN ---
Subjective Progress Note Date: 06/20/23 Principal diagnosis: Neck abscess MRSA bacteremia and possible septic emboli Patient is a 32-year-old male with a past medical history Nupercaine for IV drug use current everyday smoker presenting to the hospital for evaluation of painful lump to the right side of the posterior neck, patient did have a CT of the neck with evidence of fluid collection suspicious for abscess also with multiple pulmonary nodules suspicious for septic emboli. Patient did have a drainage of the posterior neck abscess by orthopedics on 06/15/2023, the patient did have a MARCO completed on 06/16/2023 that was negative for any vegetation On today's evaluation that is 06/20/2023, the patient continues to be afebrile, , the patient is breathing comfortably on room air, the patient denies chest pain shortness of breath or cough, patient denies nausea or vomiting abdominal pain, and no diarrhea has been reported , no new symptoms Patient white count is 21K, creatinine is 0.83, blood culture 06/15/2023 also positive, blood cultures from 06/16/2023 as well as 06/17/2023 so far negative , Vanco trough is low Objective - Vital Signs Vital signs: Vital Signs Temp 98.2 F 06/20/23 08:00 Pulse 75 06/20/23 08:54 Resp 18 06/20/23 08:00 BP 127/67 06/20/23 08:00 Pulse Ox 90 L 06/20/23 08:00 FiO2 Intake & Output 06/19/23 06/20/23 06/20/23 18:59 06:59 18:59 Intake Total 240 Balance 240 Intake: Oral 240 Other: Voiding Method Toilet Toilet Toilet Urinal Urinal # Voids 1 2 1 - Exam GENERAL DESCRIPTION: A middle-age male lying in bed in no distress HEENT: Posterior neck area with area of induration swelling and tenderness RESPIRATORY SYSTEM: Unlabored breathing , decreased breath sounds at bases HEART: S1 S2 regular rate and rhythm , ABDOMEN: Soft , no tenderness EXTREMITIES: No edema feet - Labs CBC & Chem 7: 06/20/23 06:04 06/20/23 06:04 Labs: Abnormal Lab Results - Last 24 Hours (Table) 06/20/23 06/20/23 Range/Units 06:04 06:04 WBC 21.54 H (4.50-10.00) X 10*3/uL RBC 4.25 L (4.40-5.60) X 10*6/uL Plt Count 504 H (140-440) X 10*3/uL Neutrophils # 17.19 H (1.80-7.70) X 10*3/uL Monocytes # 1.06 H (0.20-1.00) X 10*3/uL Basophils # 0.22 H (0.00-0.10) X 10*3/uL C-Reactive Protein 14.2 H (<1.0) mg/dL Microbiology - Last 24 Hours (Table) 06/15/23 20:01 Anaerobic Culture - Final Neck 06/18/23 13:18 Blood Culture - Preliminary Blood 06/17/23 05:35 Blood Culture - Preliminary Blood 06/16/23 04:28 Blood Culture - Preliminary Blood Assessment and Plan (1) Neck abscess Current Visit: Yes Status: Acute Code(s): L02.11 - CUTANEOUS ABSCESS OF NECK SNOMED Code(s): 0386005 (2) MRSA bacteremia Current Visit: Yes Status: Acute Code(s): R78.81 - BACTEREMIA; B95.62 - METHICILLIN RESIS STAPH INFCT CAUSING DISEASES [facility] SNOMED Code(s): 74830040133327189 Plan: 1patient presented to hospital with right posterior neck pain swelling and i nduration with evidence of abscess on the CT and also concerning for possible septic emboli in this patient who do have history of IV drug use high clinic suspicious for likely MRSA, gram-negative infection less likely but not entirely excluded 2CT of the chest did show some multiple nodules suspicious for septic emboli echocardiogram did not show any vegetation MRI of the brain did not show any septic emboli or acute changes, the patient did have a MARCO that was negative for any vegetation 3patient is afebrile, vanco trough very low and dose need to be adjusted up to keep the trough around 15 or will switch to daptomycin if wbc remains to be elevated for now continue the vancomycin Dictation was produced using [employer] dictation software. please excuse any grammatical, word or spelling errors. Time with Patient: Less than 30
[2023-06-20] MEDS: ZOLPIDEM 5 MG TAB PO PRN (22:05)
[2023-06-21] MEDS ORDERED: VANCOMYCIN TROUGH DUE 1 EACH MISC MISCELLANE ONE (04:00)
[2023-06-21] MEDS: VANCOMYCIN 1,750 MG in SODIUM CHLORIDE 0.9% 500 ML 500 ML IVPB SCH (04:16)
[2023-06-21 04:40] LABS: African American GFR (CKD) >90 (>60 ml/min/1.73 sqM); Anion Gap 9 mmol/L; Blood Urea Nitrogen 17 mg/dL (9-20); Calcium 9.1 mg/dL (8.4-10.2); Carbon Dioxide 24 mmol/L (22-30); Chloride 104 mmol/L (98-107); Glucose 103 mg/dL (74-99); Non-African American GFR(CKD) >90 (>60 ml/min/1.73 sqM); Potassium 4.7 mmol/L (3.5-5.1); Sodium 137 mmol/L (137-145)
[2023-06-21 08:55] LABS: Basophils # (A) 0.25 X 10*3/uL (0.00-0.10); Basophils % (A) 1.1 %; Eosinophils # (A) 0.31 X 10*3/uL (0.04-0.35); Eosinophils % (A) 1.4 %; HCT 40.7 % (39.6-50.0); HGB 13.3 d/dL (13.0-17.0); Lymphocytes # (A) 1.96 X 10*3/uL (0.90-5.00); Lymphocytes % (A) 8.8 %; MCH 31.2 pg (27.0-32.0); MCHC 32.7 d/dL (32.0-37.0); MCV 95.5 FL (80.0-97.0); Mean Platelet Volume 11.2 FL (9.5-12.2); Monocytes # (A) 1.02 X 10*3/uL (0.20-1.00); Monocytes % (A) 4.6 %; NRBC Per 100 WBC 0 X 10*3/uL (0.00-0.01); Neutrophils # (A) 18.09 X 10*3/uL (1.80-7.70); Neutrophils % (A) 81.5 %; Platelet Count 453 X 10*3/uL (140-440); RBC 4.26 X 10*6/uL (4.40-5.60); RDW 13.3 % (11.5-14.5); WBC 22.21 X 10*3/uL (4.50-10.00)
[2023-06-21] MEDS: NICOTINE 21MG/24HR PATCH TRANSDERM SCH (09:00)
[2023-06-21] MEDS: ENOXAPARIN 40 MG/0.4 ML SYRINGE SQ SCH (09:00)
[2023-06-21] MEDS: IPRATROPIUM-ALBUTEROL 3 ML NEB INHALATION SCH ×6 (09:14→18:53)
[2023-06-21] MEDS: ACETAMINOPHEN TAB 500 MG TAB PO PRN ×2 (09:22→17:14)
[2023-06-21] MEDS: cloNIDine HCL 0.1 MG TAB PO PRN ×2 (09:29→17:30)
--- NOTE | 2023-06-21 10:36 | CDI ---
Documentation Clarification Form Date: 06/21/2023 10:35:53 AM From: Danya Sanderson RN, CCDS Admit Date: 06/13/2023 12:23:00 AM Patient Name: Baltazar Sanabria Visit Number: [id number] Discharge Date: ATTENTION: The Clinical Documentation Specialists (CDI) and [facility] Coding Staff appreciate your assistance in clarifying documentation. Please respond to the clarification below the line at the bottom and electronically sign. The CDI & [facility] Coding staff will review the response and follow-up if needed. Please note: Queries are made part of the Legal Health Record. If you have any questions, please contact the author of this message via ITS. Dr. Roland Falk debridement is documented in the operative note on 06/15/23. Additional clarification regarding the procedure is requested. History/Risk Factors: Current every day smoker, Heroin, IV Drug Use, Marijuana, Opiates, Prescription Drug Abuse Clinical Indicators: 32-year-old male present with right posterior neck abscess. Operative Note: Skin knife used to incise skin and freshen edges - Ronguere and curet used to remove necrotic tissue and subcutaneous as well as muscle Treatment: 06/15/23 Incision and drainage with irrigation and debridement right posterior neck abscess Vancomycin HCL 2, 000MG IVPB Q 8 HRS (PTD) Please clarify the type of procedure performed: [ ] Excisional debridement (the removal of necrotic, devitalized tissue or slough by means of cutting away of tissue) [ ] Non-excisional debridement (the removal of necrotic, devitalized tissue or slough by means of flushing, brushing, or washing. (Irrigation) [ ] Other; please specify [ ] Unable to determine Five elements required for accurate and compliant documentation of a debridement: Technique used (e.g., excisional, excised, cutting, brushing, jet lavage etc.) Instrument(s) used (e.g., scalpel, curette, etc.) Nature of the tissue removed (e.g., necrotic, devitalized tissues, non-viable tissue, etc.) Appearance and size of the wound (e.g., down to fresh bleeding tissue, 7cm x 10cm, etc.) Depth of the debridement* (e.g., skin, subcutaneous tissue, fascia, muscle, bone, etc.) (Template Last Revised: November 2020) Excisional debridement (the removal of necrotic, devitalized tissue or slough by means of cutting away of tissue) [facility]
[2023-06-21] MEDS: VANCOMYCIN 2,000 MG in SODIUM CHLORIDE 0.9% 500 ML 500 ML IVPB SCH ×2 (12:01→21:17)
[2023-06-21] MEDS: GABAPENTIN 300 MG CAP PO SCH ×2 (12:01→21:17)
--- NOTE | 2023-06-21 13:19 | P.PN ---
Subjective Progress Note Date: 06/21/23 Patient is a 32-year-old male with heroin abuse who presented to the ER with complaints of right neck ulceration with pain and swelling. Patient had been clean for approximately 4 months when he relapsed 6 days ago. He was seen in the emergency department on ingrown pimple on the back of his neck and he was prescribed Bactrim. A repeat set at less than 24 hours later due to worsening infection. On arrival to the ER his vital signs are within normal limits. Laboratory analysis was remarkable for white blood cell count of 27.8, sodium 135, BUN 24. Chest x-ray showed no acute process. There was concern for worsening cellulitis despite oral antibiotics and is therefore admitted and pl aced on vancomycin and Zosyn. He was started on IV fluids. The next morning he was having worsening neck pain as well as withdrawal symptoms. Patient found to be bacteremic with chest CT concerning for septic emboli. ID, pulmonology, orthopedic surgery following. Patient currently in medical ICU. Patient had I&D. TTE did not show any vegetations, MARCO also did not show any vegetations. Remains on IV vancomycin. Repeat blood cultures have been negative so far. Patient pending discharge to nursing facility. Patient seen and examined at bedside. No acute events overnight. Vital signs reviewed General: nontoxic, NAD, appears at stated age Cardiovascular: S1S2 , no murmur, positive posterior tibial pulse bilateral, Dermatologic: Neck dressing clean, dry, intact Lungs: Bilateral rales, no accessory muscle use, supplemental oxygen Abdominal: soft, nontender to palpation, no guarding, no appreciable organomegaly Ext: no gross muscle atrophy, no edema b/l lower extremities, no contractures Neuro: CN II-XI grossly intact, no focal neuro deficits Psych: Alert, oriented, appropriate affect Assessment/Plan: Posterior right neck abscess status post I&D MRSA bacteremia Bilateral lung nodules with mass, appears more so like septic emboli Sepsis Loculated right lung base pleural effusion -Repeat blood cultures have been negative growth to date -ID following, will need IV abx at discharge -Neck abscess growing MRSA, likely source of bacteremia -Vancomycin with dosing based on trough. Monitor toxicity by following vancomycin trough levels and creatinine levels -Pulmonology following, loculated effusion too small to drain, has multiple septations Heroin dependency Opiate withdrawal - methadone weaned off -Catapres 0.1 mg by mouth 3 times daily as needed for withdrawal symptoms -Also started on gabapentin 300 3 times a day, may go up to 600 3 times a day if no resolution of symptoms Vitreous Floaters -Ophthalmology was consulted, Patient only agreed to limited exam. Does not appear to have a serious eye problem. Imaging: No new imaging Data Review: WBC 22.21, platelet 453, creatinine 0.75 DVT prophylaxis: Lovenox Anticipated discharge date: Pending Clinical Course Anticipated discharge place: Pending Clinical Course, if needed to have IV antibiotics at the time of discharge, patient is agreeable to go to a nursing facility Objective - Vital Signs Vital signs: Vital Signs Temp 98.5 F 06/21/23 07:17 Pulse 93 06/21/23 09:30 Resp 18 06/21/23 07:17 BP 114/65 06/21/23 07:17 Pulse Ox 93 L 06/21/23 07:17 FiO2 Intake & Output 06/20/23 06/21/23 06/21/23 18:59 06:59 18:59 Intake Total 360 120 Balance 360 120 Intake: Oral 360 120 Other: Voiding Method Toilet Toilet Urinal Urinal # Voids 1 1 - Labs CBC & Chem 7: 06/21/23 03:55 06/21/23 03:55 Labs: Abnormal Lab Results - Last 24 Hours (Table) 06/21/23 06/21/23 Range/Units 03:55 03:55 WBC 22.21 H (4.50-10.00) X 10*3/uL RBC 4.26 L (4.40-5.60) X 10*6/uL Plt Count 453 H (140-440) X 10*3/uL Neutrophils # 18.09 H (1.80-7.70) X 10*3/uL Monocytes # 1.02 H (0.20-1.00) X 10*3/uL Basophils # 0.25 H (0.00-0.10) X 10*3/uL Glucose 103 H (74-99) mg/dL Microbiology - Last 24 Hours (Table) 06/16/23 04:28 Blood Culture - Final Blood 06/18/23 13:18 Blood Culture - Preliminary Blood 06/15/23 07:08 Blood Culture - Final Blood 06/17/23 05:35 Blood Culture - Preliminary Blood
--- NOTE | 2023-06-21 14:05 | CT ---
EXAMINATION TYPE: CT chest wo con CT DLP: 266.70 mGycm, Automated exposure control for dose reduction was used. DATE OF EXAM: 06/21/2023 1:47 PM COMPARISON: Chest radiograph 06/18/2023, CT chest 06/14/2023 CLINICAL INDICATION:Male, 32 years old with history of pleural effusion; PHH, pleural effusion TECHNIQUE: Multiple axial images were obtained through the chest without IV contrast. Lack of IV or o ral contrast limits evaluation of solid and hollow organ viscera. . Coronal and sagittal reformats re viewed. FINDINGS: LUNGS/ PLEURA: Increased trace left pleural effusion. Slightly decreased small loculated right pleura l effusion. More masslike appearance of left lower lobe 3.7 x 2.0 cm consolidation (series 4, image 38). Similar superior segment left lower lobe 1.3 cm nodular consolidation with now central cavitatio n (series 4, image 27). Redemonstration of left upper lobe nodular consolidation abutting the major f issure measuring 2.2 cm with loss of central cavitation from prior examination (series 4, image 17). Decreased nodular consolidation within the left lateral apex. Similar right apical nodular consolidat ion measuring 1.1 cm with now small central cavitation (series 4, image 15). More well-defined massli ke consolidation within the lateral aspect of the right upper lobe measuring up to 3.8 cm with centra l cavitation now demonstrated (series 4, image 28). Right lower lobe masslike consolidation with cent ral cavitation measuring 1.8 cm which is similar to prior exam (series 4, image 45). AIRWAY: Patent and unremarkable.. HEART: Size within normal limits. No pericardial effusion. MEDIASTINUM: Stable enlarged mediastinal lymphadenopathy with example including a subcarinal lymph no de measuring 2.1 cm short axis (series 3, image 30). VASCULATURE: No aortic aneurysm. MUSCULOSKELETAL: No acute osseous abnormalities SOFT TISSUES/LYMPH NODES: Unremarkable. LOWER NECK: No significant findings. UPPER ABDOMEN: No significant findings. IMPRESSION: 1. Redemonstration of multiple masslike/nodular consolidative opacities within the lung. Several of t hese demonstrate central cavitation. Largest in the lateral right upper lobe is more well-defined wit h central cavitation from prior exam. Further workup is recommended. Etiologies include pulmonary abs cesses versus septic pulmonary emboli versus autoimmune disease versus lung cancer/metastasis. 2. Slightly decreased size of right loculated pleural effusion. 3. Stable mediastinal adenopathy likely reactive to #1.
--- NOTE | 2023-06-21 14:56 | P.PN ---
Subjective Progress Note Date: 06/21/23 I am seeing this patient in new consultation today 06/15/2023 after he presented back on June 13 with concerns of right neck abscess patient is a 32-year-old white male with past medical history significant for IV drug abuse, hepatitis C, and is a current smoker. Patient originally presented to the emergency room on June 12 with concerns of right neck cellulitis/abscess. He says that it looked like a "spider bite". He was originally discharged home on Bactrim. He did try and drain the abscess with a nail and razor blade at home. He progressively became more weak and had subjective fevers at home. He continues to use IV heroin. He did come back to the emergency room on June 13. CT of the neck shows a 6 x 2 x 3 cm thin walled fluid collection within the right neck. Blood cultures are positive for presumptive MRSA. Chest CT shows multiple bilateral pulmonary cavitating nodules and masses. Considering the patient's history, these are concerning for septic emboli. There is a loculated right pleural effusion at the lung base. A 2-D transthoracic echocardiogram is pending. Patient has been started on IV vancomycin. CBC from yesterday shows a WBC count of 22.6, hemoglobin 13.3, hematocrit 40.9, platelets 272. BMP from admission shows a sodium 133, potassium 4.3, chloride 106, serum bicarb 20, BUN 19, creatinine 1.07, glucose 117. Patient is currently sitting up in bed, on room air, in no acute distress. He continues to be febrile with a T-max of 102.6F. Patient is hemodynamically stable at this time. The patient is seen today 06/16/2023 in follow-up in the intensive care unit. He is currently sitting up in bed. Awake and alert in no acute distress. He did have a fever early this morning of 101.2. He is maintaining O2 saturations in the 90s on 2 L/m per nasal cannula. He's been hemodynamically stable. He did undergo transesophageal echocardiogram which did not reveal any evidence of infective endocarditis. MRI of the head and neck did reveal a right posterior neck phlegmonos changes and early abscess. No evidence for extension into the brain. No evidence of osteitis. Blood cultures are positive for MRSA. White count 19.7. Hemoglobin 13.7. Platelets 185. Sodium 132. Potassium 4.7. Bicarb 22. BUN 17. Creatinine 0.81. Glucose 102. He is continued on vancomycin. Lovenox for DVT prophylaxis. NicoDerm patch in place. Normal saline at 75 ML's per hour. The patient is seen today 06/17/2023 in follow-up in the intensive care unit. He is currently sitting up in bed. Awake and alert in no acute distress. Maintaining O2 saturations in the 90s on 2 L/m per nasal cannula. He did undergo incision and drainage with irrigation and debridement of the right posterior neck abscess yesterday. Cultures positive for MRSA as well. White count 22.1. Hemoglobin 13.6. Platelets 364. Creatinine 0.78. GFR greater than 90. Vancomycin trough 9.4. He remains on vancomycin. NicoDerm patch in place. Lovenox for DVT prophylaxis. Continued on DuoNeb inhalations. The patient is seen today 06/18/2023 in follow-up on the regular medical floor. He is resting comfortably in bed. Awake and alert in no acute distress. M aintaining good O2 saturations in the 90s on room air. Chest x-ray continues show bilateral areas of consolidation and a small right effusion. More nodular masslike consolidation in the right upper lobe. Blood cultures positive for MRSA. Neck wound culture positive for MRSA. Follow-up blood cultures are pending. He's been on vancomycin. Lovenox for DVT prophylaxis. NicoDerm patches in place. White count 22.8. Hemoglobin 13.4. Platelets 385. Sodium 136. Potassium 4.3. Bicarb 24. BUN 9. Creatinine 0.75. Glucose 115. The patient is seen today 06/19/2023 in follow-up on the regular medical floor. He is currently awake and alert in no acute distress. Resting comfortably in bed. No worsening shortness of breath, cough or congestion. Maintaining good O2 saturations in the 90s on room air. He is continued on bronchodilators. Lovenox for DVT prophylaxis. NicoDerm patch in place. He is continued on vancomycin. Blood cultures and right neck wound cultures were positive for MRSA. Follow-up blood cultures are pending. Creatinine 0.83. GFR greater than 90. Vancomycin trough 12.9. The patient is seen today 06/20/2023 in follow-up on the regular medical floor. He is currently sitting up in a chair at the bedside. Awake and alert in no acute distress. He does have some complaints of shortness of breath. Some difficulty with deep inhalations. He is maintaining good O2 saturations in the 90s on room air. He is continued on bronchodilators. Working with the incentive spirometer. He remains on vancomycin. NicoDerm patch in place. Creatinine 0.74. GFR greater than 90. C-reactive protein 14.2. On today's evaluation of 06/21/2023, the patient is still complaining of discomfort along the right chest area. He is on room air oxygen. He remains on vancomycin. I reviewed the CAT scan of the chest and the patient had a moderate-sized left-sided right-sided pleural effusion. The white cell count remains elevated at 22.2. Hemoglobin is at 15.3. Stable creatinine of 0.7 with a BUN of 17. The repeat blood cultures from 06/18/2022 has been negative. The repeat blood culture from 06/17 has been negative. As such, the patient is not bacteremic. On today's examination, the patient continues to have diminished breath on the right lung base. Based on that, a noncontrast CAT scan of the chest was done that showed multiple masslike consolidative opacities in the right lung. several of those demonstrate central cavitation. the largest in the lateral right upper lobe as well as defined with central cavitation compared to prior examination. there is obvious denies a consent for septic pulmonary emboli. there is also slight decrease in size of the right-sided located pleural effusion. Objective - Vital Signs Vital signs: Vital Signs Temp 98.5 F 06/21/23 07:17 Pulse 93 06/21/23 09:30 Resp 18 06/21/23 07:17 BP 114/65 06/21/23 07:17 Pulse Ox 93 L 06/21/23 07:17 FiO2 Intake & Output 06/20/23 06/21/23 06/21/23 18:59 06:59 18:59 Intake Total 360 120 Balance 360 120 Intake: Oral 360 120 Other: Voiding Method Toilet Toilet Urinal Urinal # Voids 1 1 - Exam GENERAL EXAM: Alert, pleasant 32-year-old male, up in a chair, on room air, comfortable in no apparent distress. HEAD: Normocephalic and atraumatic EYES: Normal reaction of pupils, equal size. NOSE: Clear with pink turbinates. THROAT: No erythema or exudates. NECK: No masses, no JVD. Right neck dressing dry and intact. CHEST: No chest wall deformity. LUNGS: Equal air entry with few scattered rhonchi. CVS: S1 and S2 normal with no audible murmur, regular rhythm. No extra heart sounds ABDOMEN: No hepatosplenomegaly, active bowel sounds, no guarding or rigidity. SPINE: No scoliosis or deformity SKIN: No rashes CENTRAL NERVOUS SYSTEM: No focal deficits, tone is normal in all 4 extremities. EXTREMITIES: There is no peripheral edema, clubbing, or cyanosis. Peripheral pulses are intact. - Labs CBC & Chem 7: 06/21/23 03:55 06/21/23 03:55 Labs: Abnormal Lab Results - Last 24 Hours (Table) 06/21/23 06/21/23 Range/Units 03:55 03:55 WBC 22.21 H (4.50-10.00) X 10*3/uL RBC 4.26 L (4.40-5.60) X 10*6/uL Plt Count 453 H (140-440) X 10*3/uL Neutrophils # 18.09 H (1.80-7.70) X 10*3/uL Monocytes # 1.02 H (0.20-1.00) X 10*3/uL Basophils # 0.25 H (0.00-0.10) X 10*3/uL Glucose 103 H (74-99) mg/dL Microbiology - Last 24 Hours (Table) 06/18/23 13:18 Blood Culture - Preliminary Blood 06/15/23 07:08 Blood Culture - Final Blood 06/17/23 05:35 Blood Culture - Preliminary Blood Assessment and Plan Plan: Right neck abscess, CT of the neck shows a 6 x 2 x 3 cm thin walled fluid collection within the right neck. Status post incision and drainage. Cultures revealing MRSA. MRI of the head and neck reveals a right posterior neck phlegmon as changes and early abscess. No evidence for extension into the brain. No evidence of osteitis. Currently on vancomycin. Transesophageal echocardiogram did not reveal any evidence of infective endocarditis MRSA bacteremia secondary to above Leukocytosis, secondary to above, the white cell count remains elevated Multiple cavitating pulmonary nodules and masses, concerning for septic emboli. Doubt malignancy, due to patient's age. The repeat CAT scan of the chest shows redemonstration of the multiple masslike no other consolidative opacities within the right lung. 7 of those demonstrate central cavitation consistent with septic pneumonia/septic embolism to the lung. Loculated right pleural effusion, this is slightly decreased in size History of hepatitis C Polysubstance abuse and IV drug abuse, including heroin dependency the patient is on Catapres 0.1 mg 3 times a day and the patient was also started on gabapentin 600 mg by mouth 3 times a day Current tobacco smoker Plan: Follow-up CAT scan was noted Continues on vancomycin Blood cultures are negative for now May consider a thoracentesis of the right lung regarding this is likely due to the right-sided pleural effusion Will need long-term antibiotics and this will be discussed with infectious disease Educated regarding complete drug use cessation, smoking cessation NicoDerm patch in place Stable and on room air We will continue to follow, may need to go to a nursing facility for IV antibiotic treatment.
[2023-06-22] MEDS: VANCOMYCIN 2,000 MG in SODIUM CHLORIDE 0.9% 500 ML 500 ML IVPB SCH ×3 (04:58→23:10)
[2023-06-22] MEDS: ACETAMINOPHEN TAB 500 MG TAB PO PRN ×2 (04:58→15:49)
[2023-06-22] MEDS: cloNIDine HCL 0.1 MG TAB PO PRN ×2 (05:41→14:53)
[2023-06-22] MEDS: NICOTINE 21MG/24HR PATCH TRANSDERM SCH (08:44)
[2023-06-22] MEDS: GABAPENTIN 300 MG CAP PO SCH (08:45)
[2023-06-22] MEDS: IPRATROPIUM-ALBUTEROL 3 ML NEB INHALATION SCH ×4 (09:24→21:05)
[2023-06-22] MEDS ORDERED: GABAPENTIN 100 MG CAP PO STA (10:32)
--- NOTE | 2023-06-22 11:03 | CT ---
EXAMINATION TYPE: CT abdomen pelvis w con DATE OF EXAM: 06/22/2023 COMPARISON: CT chest 06/21/2023 HISTORY: abd pain CT DLP: 629.9 mGycm CONTRAST: CT scan of the abdomen and pelvis is performed without Oral Contrast and with IV Contrast, patient in jected with 100 mL of Isovue 300. FINDINGS: LUNG BASES-: Loculated elliptical collection right lower lobe is redemonstrated. Empyema is not exclu ded. Additional loculated pleural effusion right lateral lung base with a nodular component with cent ral cavitation. Small left-sided pleural effusion. Cavitary pleural-based mass is partially imaged le ft lower lobe. Correlate for septic emboli or abscess formation. LIVER/GB: No calcified gallstones. No space occupying hepatic lesion. Biliary tree is of normal ca liber. PANCREAS: No inflammation. No distinct mass. SPLEEN: No splenic enlargement. No lesion seen. ADRENALS: No nodule. No thickening. KIDNEYS/BLADDER: No hydronephrosis. No nephrolithiasis. No distinct renal mass. Urinary bladder g rossly unremarkable. BOWEL: Nonvisualization of the appendix. No inflammatory process right lower quadrant. Mild jejunal s mall bowel wall thickening is nonspecific and could be related to poor distention. Nonspecific enteri tis not excluded. No free air or abscess visualized within the abdomen or pelvis. No inflammation. GENITAL ORGANS: No gross abnormality. LYMPH NODES: No greater than 1cm abdominal or pelvic lymph nodes are appreciated. AORTA: No significant abnormality. OSSEOUS STRUCTURES: No significant abnormality is seen. OTHER: No significant additional abnormality is seen. IMPRESSION: 1. Correlate for nonspecific small bowel enteritis. 2. Partially imaged findings at the lung bases are essentially unchanged from prior examinations. Cav itary nodular densities may reflect cavitary abscess, septic emboli or necrotic neoplasm. Loculated e lliptical collection right lower lobe could reflect loculated effusion however empyema is not exclude d.
[2023-06-22 11:19] LABS: HCT 42.3 % (39.6-50.0); HGB 13.8 d/dL (13.0-17.0); MCH 31.2 pg (27.0-32.0); MCHC 32.6 d/dL (32.0-37.0); MCV 95.7 FL (80.0-97.0); Mean Platelet Volume 10.6 FL (9.5-12.2); NRBC Per 100 WBC 0 X 10*3/uL (0.00-0.01); Platelet Count 516 X 10*3/uL (140-440); RBC 4.42 X 10*6/uL (4.40-5.60); RDW 13.5 % (11.5-14.5); WBC 16.68 X 10*3/uL (4.50-10.00)
[2023-06-22 11:20] LABS: Basophils # (A) 0.17 X 10*3/uL (0.00-0.10); Eosinophils # (A) 0.21 X 10*3/uL (0.04-0.35); Eosinophils % (A) 1.3 %; Lymphocytes # (A) 1.82 X 10*3/uL (0.90-5.00); Lymphocytes % (A) 10.9 %; Monocytes # (A) 0.78 X 10*3/uL (0.20-1.00); Monocytes % (A) 4.7 %; Neutrophils # (A) 13.33 X 10*3/uL (1.80-7.70); Neutrophils % (A) 79.9 %
[2023-06-22] MEDS: ENOXAPARIN 40 MG/0.4 ML SYRINGE SQ SCH (11:42)
[2023-06-22 11:43] LABS: BUN/Creat Ratio 18.38 Ratio (12.00-20.00); Blood Urea Nitrogen 14.7 mg/dL (9.0-27.0); Carbon Dioxide 24.1 mmol/L (21.6-31.8); Chloride 102 mmol/L (96-109); Glucose 117 mg/dL (70-110); Magnesium 2.1 mg/dL (1.5-2.4); Potassium 4.4 mmol/L (3.5-5.5); Sodium 137 mmol/L (135-145)
--- NOTE | 2023-06-22 13:50 | P.PN ---
Subjective Progress Note Date: 06/22/23 I am seeing this patient in new consultation today 06/15/2023 after he presented back on June 13 with concerns of right neck abscess patient is a 32-year-old white male with past medical history significant for IV drug abuse, hepatitis C, and is a current smoker. Patient originally presented to the emergency room on June 12 with concerns of right neck cellulitis/abscess. He says that it looked like a "spider bite". He was originally discharged home on Bactrim. He did try and drain the abscess with a nail and razor blade at home. He progressively became more weak and had subjective fevers at home. He continues to use IV heroin. He did come back to the emergency room on June 13. CT of the neck shows a 6 x 2 x 3 cm thin walled fluid collection within the right neck. Blood cultures are positive for presumptive MRSA. Chest CT shows multiple bilateral pulmonary cavitating nodules and masses. Considering the patient's history, these are concerning for septic emboli. There is a loculated right pleural effusion at the lung base. A 2-D transthoracic echocardiogram is pending. Patient has been started on IV vancomycin. CBC from yesterday shows a WBC count of 22.6, hemoglobin 13.3, hematocrit 40.9, platelets 272. BMP from admission shows a sodium 133, potassium 4.3, chloride 106, serum bicarb 20, BUN 19, creatinine 1.07, glucose 117. Patient is currently sitting up in bed, on room air, in no acute distress. He continues to be febrile with a T-max of 102.6F. Patient is hemodynamically stable at this time. The patient is seen today 06/16/2023 in follow-up in the intensive care unit. He is currently sitting up in bed. Awake and alert in no acute distress. He did have a fever early this morning of 101.2. He is maintaining O2 saturations in the 90s on 2 L/m per nasal cannula. He's been hemodynamically stable. He did undergo transesophageal echocardiogram which did not reveal any evidence of infective endocarditis. MRI of the head and neck did reveal a right posterior neck phlegmonos changes and early abscess. No evidence for extension into the brain. No evidence of osteitis. Blood cultures are positive for MRSA. White count 19.7. Hemoglobin 13.7. Platelets 185. Sodium 132. Potassium 4.7. Bicarb 22. BUN 17. Creatinine 0.81. Glucose 102. He is continued on vancomycin. Lovenox for DVT prophylaxis. NicoDerm patch in place. Normal saline at 75 ML's per hour. The patient is seen today 06/17/2023 in follow-up in the intensive care unit. He is currently sitting up in bed. Awake and alert in no acute distress. Maintaining O2 saturations in the 90s on 2 L/m per nasal cannula. He did undergo incision and drainage with irrigation and debridement of the right posterior neck abscess yesterday. Cultures positive for MRSA as well. White count 22.1. Hemoglobin 13.6. Platelets 364. Creatinine 0.78. GFR greater than 90. Vancomycin trough 9.4. He remains on vancomycin. NicoDerm patch in place. Lovenox for DVT prophylaxis. Continued on DuoNeb inhalations. The patient is seen today 06/18/2023 in follow-up on the regular medical floor. He is resting comfortably in bed. Awake and alert in no acute distress. M aintaining good O2 saturations in the 90s on room air. Chest x-ray continues show bilateral areas of consolidation and a small right effusion. More nodular masslike consolidation in the right upper lobe. Blood cultures positive for MRSA. Neck wound culture positive for MRSA. Follow-up blood cultures are pending. He's been on vancomycin. Lovenox for DVT prophylaxis. NicoDerm patches in place. White count 22.8. Hemoglobin 13.4. Platelets 385. Sodium 136. Potassium 4.3. Bicarb 24. BUN 9. Creatinine 0.75. Glucose 115. The patient is seen today 06/19/2023 in follow-up on the regular medical floor. He is currently awake and alert in no acute distress. Resting comfortably in bed. No worsening shortness of breath, cough or congestion. Maintaining good O2 saturations in the 90s on room air. He is continued on bronchodilators. Lovenox for DVT prophylaxis. NicoDerm patch in place. He is continued on vancomycin. Blood cultures and right neck wound cultures were positive for MRSA. Follow-up blood cultures are pending. Creatinine 0.83. GFR greater than 90. Vancomycin trough 12.9. The patient is seen today 06/20/2023 in follow-up on the regular medical floor. He is currently sitting up in a chair at the bedside. Awake and alert in no acute distress. He does have some complaints of shortness of breath. Some difficulty with deep inhalations. He is maintaining good O2 saturations in the 90s on room air. He is continued on bronchodilators. Working with the incentive spirometer. He remains on vancomycin. NicoDerm patch in place. Creatinine 0.74. GFR greater than 90. C-reactive protein 14.2. On today's evaluation of 06/21/2023, the patient is still complaining of discomfort along the right chest area. He is on room air oxygen. He remains on vancomycin. I reviewed the CAT scan of the chest and the patient had a moderate-sized left-sided right-sided pleural effusion. The white cell count remains elevated at 22.2. Hemoglobin is at 15.3. Stable creatinine of 0.7 with a BUN of 17. The repeat blood cultures from 06/18/2022 has been negative. The repeat blood culture from 06/17 has been negative. As such, the patient is not bacteremic. On today's examination, the patient continues to have diminished breath on the right lung base. Based on that, a noncontrast CAT scan of the chest was done that showed multiple masslike consolidative opacities in the right lung. several of those demonstrate central cavitation. the largest in the lateral right upper lobe as well as defined with central cavitation compared to prior examination. there is obvious denies a consent for septic pulmonary emboli. there is also slight decrease in size of the right-sided located pleural effusion. 06/22/2023, I'm seeing the patient for a follow-up. The patient remains on IV antibiotics. The plan is to put a PICC line and send this patient to a facility where he can complete his antibiotic course. I was concerned of the right-sided pleural effusion. Based on that, I repeated the CAT scan of the chest. The patient has multiple nodular opacities that are somewhat cavitating and this is consistent with staphylococcal septic emboli to the lung. At the same time, the right-sided pleural effusion was smaller in size. Based on that, I decided not to drain the fluid and continue with antibiotic course. He is on room air oxygen. He has no specific complaints.The white cell count is at 16 with a hemoglobin of 13.8, nitrites are normal, vancomycin trough was 14 from yesterday. Objective - Vital Signs Vital signs: Vital Signs Temp 97.8 F 06/22/23 13:35 Pulse 71 06/22/23 13:35 Resp 17 06/22/23 13:35 BP 127/70 06/22/23 13:35 Pulse Ox 97 06/22/23 13:35 FiO2 Intake & Output 06/21/23 06/22/23 06/22/23 18:59 06:59 18:59 Intake Total 360 591 Balance 360 591 Intake: Oral 360 591 Other: Voiding Method Toilet Urinal # Voids 1 2 - Labs CBC & Chem 7: 06/22/23 06:59 06/22/23 06:59 Labs: Abnormal Lab Results - Last 24 Hours (Table) 06/22/23 06/22/23 Range/Units 06:59 06:59 WBC 16.68 H (4.50-10.00) X 10*3/uL Plt Count 516 H (140-440) X 10*3/uL Neutrophils # 13.33 H (1.80-7.70) X 10*3/uL Basophils # 0.17 H (0.00-0.10) X 10*3/uL Glucose 117 H (70-110) mg/dL Microbiology - Last 24 Hours (Table) 06/17/23 05:35 Blood Culture - Final Blood 06/18/23 13:18 Blood Culture - Preliminary Blood 06/16/23 04:28 Blood Culture - Final Blood Assessment and Plan Plan: Right neck abscess, CT of the neck shows a 6 x 2 x 3 cm thin walled fluid collection within the right neck. Status post incision and drainage. Cultures revealing MRSA. MRI of the head and neck reveals a right posterior neck phleg mon as changes and early abscess. No evidence for extension into the brain. No evidence of osteitis. Currently on vancomycin. Transesophageal echocardiogram did not reveal any evidence of infective endocarditis MRSA bacteremia secondary to above Leukocytosis, secondary to above, the white cell count remains elevated Multiple cavitating pulmonary nodules and masses, concerning for septic emboli. Doubt malignancy, due to patient's age. The repeat CAT scan of the chest shows redemonstration of the multiple masslike no other consolidative opacities within the right lung. 7 of those demonstrate central cavitation consistent with septic pneumonia/septic embolism to the lung. Loculated right pleural effusion, this is slightly decreased in size History of hepatitis C Polysubstance abuse and IV drug abuse, including heroin dependency the patient is on Catapres 0.1 mg 3 times a day and the patient was also started on gabapentin 600 mg by mouth 3 times a day Current tobacco smoker Plan: Follow-up CAT scan was noted, no need for thoracentesis, the right-sided pleural effusion is smaller in size. The patient has multiple other opacities with cavitation consistent with pulmonary septic emboli Continues on vancomycin Blood cultures are negative for now Will need long-term antibiotics and this will be discussed with infectious disease Educated regarding complete drug use cessation, smoking cessation NicoDerm patch in place Stable and on room air We will continue to follow, may need to go to a nursing facility for IV antibiotic treatment.
--- NOTE | 2023-06-22 14:34 | P.PN ---
Subjective Progress Note Date: 06/21/23 Principal diagnosis: Neck abscess MRSA bacteremia and possible septic emboli Patient is a 32-year-old male with a past medical history Nupercaine for IV drug use current everyday smoker presenting to the hospital for evaluation of painful lump to the right side of the posterior neck, patient did have a CT of the neck with evidence of fluid collection suspicious for abscess also with multiple pulmonary nodules suspicious for septic emboli. Patient did have a drainage of the posterior neck abscess by orthopedics on 06/15/2023, the patient did have a MARCO completed on 06/16/2023 that was negative for any vegetation On today's evaluation that is 06/21/2023, the patient denies any fever or any chills , the patient is breathing comfortably on room air , the patient denies chest pain or cough, patient denies ausea or vomiting and no abdominal pain, no diarrhea Patient white count is still elevated at 22,000, creatinine is 0.75, blood culture 06/15/2023 also positive, blood cultures from 06/16/2023 as well as 06/17/2023 so far negative , Vanco trough is 14 Objective - Vital Signs Vital signs: Vital Signs Temp 98.5 F 06/21/23 07:17 Pulse 93 06/21/23 09:30 Resp 18 06/21/23 07:17 BP 114/65 06/21/23 07:17 Pulse Ox 93 L 06/21/23 07:17 FiO2 Intake & Output 06/20/23 06/21/23 06/21/23 18:59 06:59 18:59 Intake Total 360 120 Balance 360 120 Intake: Oral 360 120 Other: Voiding Method Toilet Toilet Urinal Urinal # Voids 1 1 - Exam GENERAL DESCRIPTION: A middle-age male lying in bed in no distress HEENT: Posterior neck area with area of induration swelling and tenderness RESPIRATORY SYSTEM: Unlabored breathing , decreased breath sounds at bases HEART: S1 S2 regular rate and rhythm , ABDOMEN: Soft , no tenderness EXTREMITIES: No edema feet - Labs CBC & Chem 7: 06/22/23 06:59 06/22/23 06:59 Labs: Abnormal Lab Results - Last 24 Hours (Table) 06/21/23 06/21/23 Range/Units 03:55 03:55 WBC 22.21 H (4.50-10.00) X 10*3/uL RBC 4.26 L (4.40-5.60) X 10*6/uL Plt Count 453 H (140-440) X 10*3/uL Neutrophils # 18.09 H (1.80-7.70) X 10*3/uL Monocytes # 1.02 H (0.20-1.00) X 10*3/uL Basophils # 0.25 H (0.00-0.10) X 10*3/uL Glucose 103 H (74-99) mg/dL Microbiology - Last 24 Hours (Table) 06/18/23 13:18 Blood Culture - Preliminary Blood 06/15/23 07:08 Blood Culture - Final Blood 06/17/23 05:35 Blood Culture - Preliminary Blood Assessment and Plan (1) Neck abscess Current Visit: Yes Status: Acute Code(s): L02.11 - CUTANEOUS ABSCESS OF NECK SNOMED Code(s): 9990307 (2) MRSA bacteremia Current Visit: Yes Status: Acute Code(s): R78.81 - BACTEREMIA; B95.62 - METHICILLIN RESIS STAPH INFCT [facility] Code(s): 78112498390323371 Plan: 1patient presented to hospital with right posterior neck pain swelling and induration with evidence of abscess on the CT and also concerning for possible septic emboli in this patient who do have history of IV drug use high clinic suspicious for likely MRSA, gram-negative infection less likely but not entirely excluded 2CT of the chest did show some multiple nodules suspicious for septic emboli echocardiogram did not show any vegetation MRI of the brain did not show any septic emboli or acute changes, the patient did have a MARCO that was negative for any vegetation 3patient is afebrile, vanco trough is up to 14 we will see response all this adjustment of the vancomycin to his white count if improved to continue with the Vancomycin otherwise we'll switch to daptomycin Dictation was produced using [employer] dictation software. please excuse any grammatical, word or spelling errors. Time with Patient: Less than 30
--- NOTE | 2023-06-22 14:36 | P.PN ---
Subjective Progress Note Date: 06/22/23 Principal diagnosis: Neck abscess MRSA bacteremia and possible septic emboli Patient is a 32-year-old male with a past medical history Nupercaine for IV drug use current everyday smoker presenting to the hospital for evaluation of painful lump to the right side of the posterior neck, patient did have a CT of the neck with evidence of fluid collection suspicious for abscess also with multiple pulmonary nodules suspicious for septic emboli. Patient did have a drainage of the posterior neck abscess by orthopedics on 06/15/2023, the patient did have a MARCO completed on 06/16/2023 that was negative for any vegetation On today's evaluation that is 06/22/2023, the patient remains to be afebrile, the patient is breathing comfortably without need for supplemental oxygen , the patient denies chest pain and no significant cough, patient denies nausea/vomiting /diarrhea and denies abdominal pain, patient denies pain to his neck area The patient white count is down to 16.68, creatinine 0.8, blood cultures from 06/16/2023 as well as 06/17/2023 so far negative , Objective - Vital Signs Vital signs: Vital Signs Temp 98.3 F 06/22/23 07:29 Pulse 78 06/22/23 07:29 Resp 17 06/22/23 07:29 BP 130/83 06/22/23 07:29 Pulse Ox 95 06/22/23 07:29 FiO2 Intake & Output 06/21/23 06/22/23 06/22/23 18:59 06:59 18:59 Intake Total 360 Balance 360 Intake: Oral 360 Other: Voiding Method Toilet Urinal # Voids 1 2 - Exam GENERAL DESCRIPTION: A middle-age male lying in bed in no distress HEENT: Posterior neck area with area of induration swelling and tenderness RESPIRATORY SYSTEM: Unlabored breathing , decreased breath sounds at bases HEART: S1 S2 regular rate and rhythm , ABDOMEN: Soft , no tenderness EXTREMITIES: No edema feet - Labs CBC & Chem 7: 06/22/23 06:59 06/22/23 06:59 Labs: Abnormal Lab Results - Last 24 Hours (Table) 06/22/23 Range/Units 06:59 WBC 16.68 H (4.50-10.00) X 10*3/uL Plt Count 516 H (140-440) X 10*3/uL Neutrophils # 13.33 H (1.80-7.70) X 10*3/uL Basophils # 0.17 H (0.00-0.10) X 10*3/uL Microbiology - Last 24 Hours (Table) 06/18/23 13:18 Blood Culture - Preliminary Blood 06/16/23 04:28 Blood Culture - Final Blood Assessment and Plan (1) Neck abscess Current Visit: Yes Status: Acute Code(s): L02.11 - CUTANEOUS ABSCESS OF NECK SNOMED Code(s): 3541803 (2) MRSA bacteremia Current Visit: Yes Status: Acute Code(s): R78.81 - BACTEREMIA; B95.62 - METHICILLIN RESIS STAPH INFCT [facility] Code(s): 55884663671266980 Plan: 1patient presented to hospital with right posterior neck pain swelling and induration with evidence of abscess on the CT and also concerning for possible septic emboli in this patient who do have history of IV drug use high clinic suspicious for likely MRSA, gram-negative infection less likely but not entirely excluded 2CT of the chest did show some multiple nodules suspicious for septic emboli echocardiogram did not show any vegetation MRI of the brain did not show any septic emboli or acute changes, the patient did have a MARCO that was negative for any vegetation 3patient is afebrile, the patient white count is trending down now to 16.68 today patient had cleared his bacteremia we'll place a PICC line for outpatient IV vancomycin 6 weeks Dictation was produced using [employer] dictation software. please excuse any grammatical, word or spelling errors. Time with Patient: Less than 30
--- NOTE | 2023-06-22 15:27 | P.PN ---
Subjective Progress Note Date: 06/22/23 Hospital Course: Patient is a 32-year-old male with heroin abuse who presented to the ER with complaints of right neck ulceration with pain and swelling. Patient had been clean for approximately 4 months when he relapsed 6 days ago. He was seen in the emergency department on ingrown pimple on the back of his neck and he was prescribed Bactrim. A repeat set at less than 24 hours later due to worsening infection. On arrival to the ER his vital signs are within normal limits. Laboratory analysis was remarkable for white blood cell count of 27.8, sodium 135, BUN 24. Chest x-ray showed no acute process. There was concern for worsening cellulitis despite oral antibiotics and is therefore admitted and placed on vancomycin and Zosyn. He was started on IV fluids. The next morning he was having worsening neck pain as well as withdrawal symptoms. Patient found to be bacteremic with chest CT concerning for septic emboli. ID, pulmonology, orthopedic surgery following. Patient currently in medical ICU. Patient had I&D. TTE did not show any vegetations, MARCO also did not show any vegetations. Remains on IV vancomycin. Repeat blood cultures have been negative so far. Patient pending discharge to nursing facility. Subjective: Patient seen and examined at bedside. No acute events overnight. C/o right flank pain. Gen: awake, alert HEENT: normocephalic, atraumatic, good hearing acuity, moist mucous membranes Resp: good air exchange, breathing comfortably with no accessory muscle use CVS: good distal perfusion x 4, GI: soft, NTTP, ND : no SPT, no CVAT, sanchez catheter not present MSK: no pitting edema, no clubbing Neuro: non-focal, moving all extremities Psych: cooperative, euthymic mood Assessment/Plan: Posterior right neck abscess status post I&D MRSA bacteremia Bilateral lung nodules with mass, appears more so like septic emboli Sepsis Loculated right lung base pleural effusion -Repeat blood cultures have been negative growth to date -ID following, will need IV abx at discharge = vancomycin for 6 weeks, discussed today -Neck abscess growing MRSA, likely source of bacteremia -Vancomycin with dosing based on trough. Monitor toxicity by following vancomycin trough levels and creatinine levels -Pulmonology following, loculated effusion too small to drain, has multiple septations -CT A/P ruled out intra-abdominal abscess Heroin dependency Opiate withdrawal - methadone weaned off -Catapres 0.1 mg by mouth 3 times daily as needed for withdrawal symptoms -Also started on gabapentin 300 3 times a day, increased to 400mg TID today Vitreous Floaters -Ophthalmology was consulted, Patient only agreed to limited exam. Does not appear to have a serious eye problem. Imaging: No new imaging Data Review: WBC 22.21, platelet 453, creatinine 0.75 DVT prophylaxis: Lovenox Anticipated discharge date: Pending Clinical Course Anticipated discharge place: Pending Clinical Course, if needed to have IV antibiotics at the time of discharge, patient is agreeable to go to a nursing facility Objective - Vital Signs Vital signs: Vital Signs Temp 97.8 F 06/22/23 13:35 Pulse 71 06/22/23 13:35 Resp 17 06/22/23 13:35 BP 127/70 06/22/23 13:35 Pulse Ox 97 06/22/23 13:35 FiO2 Intake & Output 06/21/23 06/22/23 06/22/23 18:59 06:59 18:59 Intake Total 360 591 Balance 360 591 Intake: Oral 360 591 Other: Voiding Method Toilet Urinal # Voids 1 2 - Labs CBC & Chem 7: 06/22/23 06:59 06/22/23 06:59 Labs: Abnormal Lab Results - Last 24 Hours (Table) 06/22/23 06/22/23 Range/Units 06:59 06:59 WBC 16.68 H (4.50-10.00) X 10*3/uL Plt Count 516 H (140-440) X 10*3/uL Neutrophils # 13.33 H (1.80-7.70) X 10*3/uL Basophils # 0.17 H (0.00-0.10) X 10*3/uL Glucose 117 H (70-110) mg/dL Microbiology - Last 24 Hours (Table) 06/17/23 05:35 Blood Culture - Final Blood 06/18/23 13:18 Blood Culture - Preliminary Blood 06/16/23 04:28 Blood Culture - Final Blood
[2023-06-22] MEDS: GABAPENTIN 400 MG CAP PO SCH ×2 (15:48→21:24)
[2023-06-22] MEDS: ZOLPIDEM 5 MG TAB PO PRN (23:17)
[2023-06-23] MEDS ORDERED: VANCOMYCIN TROUGH DUE 1 EACH MISC MISCELLANE ONE (04:00)
[2023-06-23 04:15] LABS: African American GFR (CKD) >90 (>60 ml/min/1.73 sqM); Non-African American GFR(CKD) >90 (>60 ml/min/1.73 sqM)
[2023-06-23] MEDS: VANCOMYCIN 2,000 MG in SODIUM CHLORIDE 0.9% 500 ML 500 ML IVPB SCH ×2 (06:20→17:24)
[2023-06-23 08:29] LABS: Basophils # (A) 0.1 k/uL (0-0.2); Basophils % (A) 0 %; Eosinophils # (A) 0.2 k/uL (0-0.7); Eosinophils % (A) 1 %; HCT 41.3 % (39.0-53.0); HGB 13.4 gm/dL (13.0-17.5); Lymphocytes # (A) 1.7 k/uL (1.0-4.8); Lymphocytes % (A) 10 %; MCH 31.8 pg (25.0-35.0); MCHC 32.4 g/dL (31.0-37.0); MCV 98.2 fL (80.0-100.0); Monocytes % (A) 6 %; Neutrophils # (A) 13.4 k/uL (1.3-7.7); Neutrophils % (A) 81 %; Platelet Count 437 k/uL (150-450); RBC 4.21 m/uL (4.30-5.90); WBC 16.6 k/uL (3.8-10.6)
[2023-06-23] MEDS ORDERED: LIDOCAINE 1% INJ 10MG/ML (30 ML VIAL-PF) SQ ONE (08:38)
[2023-06-23] MEDS: ENOXAPARIN 40 MG/0.4 ML SYRINGE SQ SCH (08:47)
[2023-06-23] MEDS: NICOTINE 21MG/24HR PATCH TRANSDERM SCH (08:48)
[2023-06-23] MEDS: IPRATROPIUM-ALBUTEROL 3 ML NEB INHALATION SCH ×4 (09:24→20:50)
[2023-06-23] MEDS: GABAPENTIN 400 MG CAP PO SCH ×3 (12:33→21:05)
--- NOTE | 2023-06-23 12:35 | P.PN ---
Subjective Progress Note Date: 06/23/23 Principal diagnosis: Neck abscess MRSA bacteremia and possible septic emboli Patient is a 32-year-old male with a past medical history Nupercaine for IV drug use current everyday smoker presenting to the hospital for evaluation of painful lump to the right side of the posterior neck, patient did have a CT of the neck with evidence of fluid collection suspicious for abscess also with multiple pulmonary nodules suspicious for septic emboli. Patient did have a drainage of the posterior neck abscess by orthopedics on 06/15/2023, the patient did have a MARCO completed on 06/16/2023 that was negative for any vegetation On today's evaluation that is 06/23/2023, the patient continues to be afebrile, the patient is breathing comfortably on room air, the patient denies chest pain and no cough, patient denies abdominal pain, no nausea/vomiting /diarrhea , patient denies pain to his neck area The patient white count is down to 16.6, creatinine 0.8, blood cultures from 06/16/2023 as well as 06/17/2023 so far negative , Objective - Vital Signs Vital signs: Vital Signs Temp 98.8 F 06/23/23 08:00 Pulse 74 06/23/23 02:38 Resp 18 06/23/23 08:00 BP 122/70 06/23/23 08:00 Pulse Ox 97 06/23/23 08:00 FiO2 Intake & Output 06/22/23 06/23/23 06/23/23 18:59 06:59 18:59 Intake Total 591 Output Total 400 Balance 191 Intake: Oral 591 Output: Urine 400 Other: # Voids 2 0 - Exam GENERAL DESCRIPTION: A middle-age male lying in bed in no distress HEENT: Posterior neck area with area of induration swelling and tenderness RESPIRATORY SYSTEM: Unlabored breathing , decreased breath sounds at bases HEART: S1 S2 regular rate and rhythm , ABDOMEN: Soft , no tenderness EXTREMITIES: No edema feet - Labs CBC & Chem 7: 06/23/23 03:50 06/23/23 03:50 Labs: Abnormal Lab Results - Last 24 Hours (Table) 06/22/23 06/22/23 06/23/23 Range/Units 06:59 06:59 03:50 WBC 16.68 H 16.6 H (4.50-10.00) X 10*3/uL RBC 4.21 L (4.30-5.90) m/uL Plt Count 516 H (140-440) X 10*3/uL Neutrophils # 13.33 H 13.4 H (1.80-7.70) X 10*3/uL Basophils # 0.17 H (0.00-0.10) X 10*3/uL Glucose 117 H (70-110) mg/dL Microbiology - Last 24 Hours (Table) 06/17/23 05:35 Blood Culture - Final Blood Assessment and Plan (1) Neck abscess Current Visit: Yes Status: Acute Code(s): L02.11 - CUTANEOUS ABSCESS OF NECK SNOMED Code(s): 0119599 (2) MRSA bacteremia Current Visit: Yes Status: Acute Code(s): R78.81 - BACTEREMIA; B95.62 - METHICILLIN RESIS STAPH INFCT CAUSING DISEASES [facility] SNOMED Code(s): 13092277593156575 Plan: 1patient presented to hospital with right posterior neck pain swelling and induration with evidence of abscess on the CT and also concerning for possible septic emboli in this patient who do have history of IV drug use high clinic suspicious for likely MRSA, gram-negative infection less likely but not entirely excluded 2CT of the chest did show some multiple nodules suspicious for septic emboli echocardiogram did not show any vegetation MRI of the brain did not show any septic emboli or acute changes, the patient did have a MARCO that was negative for any vegetation 3patient is afebrile, persistent elevated white count is still of the concern and especially the origin of infection may benefit from a repeat MARCO, we will check an MRI of the cervical spine to make sure no evidence of any residual abscess and responsible for his elevated white count and continue with the vancomycin Dictation was produced using [employer] dictation software. please excuse any grammatical, word or spelling errors. Time with Patient: Greater than 30
--- NOTE | 2023-06-23 13:00 | IR ---
PICC LINE PLACEMENT: HISTORY: Infection requiring long-term antibiotic therapy PROCEDURE: Ultrasound and fluoroscopic guidance of PICC line placement. COMPLICATIONS: None ANESTHESIA: 1. 1% Lidocaine locally. FINDINGS/TECHNIQUE: The procedure was explained to the patient. The risks, complications, benefits and alternatives were discussed and any questions were answered. Informed consent was obtained. The patient was placed supine on the fluoroscopic table and prepped and draped in the usual sterile fash ion. Utilizing a 21 gauge needle and sonographic and fluoroscopic guidance, access in the left basi lic vein was achieved and there is placement of a 0.018 guidewire. The vein is patent. A 4-F sheath was placed over the guidewire. The guidewire and dilator were removed and a 4-F. PICC line was plac ed through the sheath with the tip at the level of the SVC. The sheath was removed, the catheter was flushed and sutured into position. The patient was stable throughout the procedure and remained sta ble upon discharge from the Department of Radiology. The vein puncture was patent under ultrasound. A cole scale image was obtained to document patency of the vein punctured. All elements of the maximal barrier technique were utilized. FLUOROSCOPY TIME: DAP 0.2087Gy cm2 IMPRESSION: Successful PICC line placement under ultrasound and fluoroscopic guidance.
--- NOTE | 2023-06-23 14:35 | P.PN ---
Subjective Progress Note Date: 06/23/23 Hospital Course: Patient is a 32-year-old male with heroin abuse who presented to the ER with complaints of right neck ulceration with pain and swelling. Patient had been clean for approximately 4 months when he relapsed 6 days ago. He was seen in the emergency department on ingrown pimple on the back of his neck and he was prescribed Bactrim. A repeat set at less than 24 hours later due to worsening infection. On arrival to the ER his vital signs are within normal limits. Laboratory analysis was remarkable for white blood cell count of 27.8, sodium 135, BUN 24. Chest x-ray showed no acute process. There was concern for worsening cellulitis despite oral antibiotics and is therefore admitted and placed on vancomycin and Zosyn. He was started on IV fluids. The next morning he was having worsening neck pain as well as withdrawal symptoms. Patient found to be bacteremic with chest CT concerning for septic emboli. ID, pulmonology, orthopedic surgery following. Patient currently in medical ICU. Patient had I&D. TTE did not show any vegetations, MARCO also did not show any vegetations. Remains on IV vancomycin. Repeat blood cultures have been negative so far. Subjective: Patient seen and examined at bedside. No acute events overnight. Still having back pain with cough. Gen: awake, alert HEENT: normocephalic, atraumatic, good hearing acuity, moist mucous membranes Resp: scattered rhonci, good air exchange, breathing comfortably with no accessory muscle use CVS: S1, S2 normal rate and rhythm, no MRG, good distal perfusion x 4, GI: soft, NTTP, ND : no SPT, no CVAT, sanchez catheter not present MSK: no pitting edema, no clubbing Neuro: non-focal, moving all extremities Psych: cooperative, euthymic mood Assessment/Plan: Posterior right neck abscess status post I&D MRSA bacteremia Bilateral lung nodules with mass, appears more so like septic emboli Sepsis Loculated right lung base pleural effusion Persistent leukocytosis -Repeat blood cultures have been negative growth to date -Discussed management with ID, may benefit from repeat MARCO, MRI cervical spine also pending -There is a possibility of patient going home on IV antibiotics -Vancomycin with dosing based on trough. Monitor toxicity by following vancomycin trough levels and creatinine levels -Pulmonology following, loculated effusion too small to drain, has multiple septations -CT A/P does not show any intra-abdominal source of infection Heroin dependency Opiate withdrawal - methadone weaned off -Catapres 0.1 mg by mouth 3 times daily as needed for withdrawal symptoms -Also started on gabapentin 300 3 times a day, increased to 400mg TID yesterday Vitreous Floaters -Ophthalmology was consulted, Patient only agreed to limited exam. Does not appear to have a serious eye problem. Imaging: No new imaging Data Review: WBC 16.6, creatinine 0.78 DVT prophylaxis: Lovenox Anticipated discharge date: Pending Clinical Course Anticipated discharge place: home vs facility Objective - Vital Signs Vital signs: Vital Signs Temp 98.8 F 06/23/23 08:00 Pulse 74 06/23/23 02:38 Resp 18 06/23/23 08:00 BP 122/70 06/23/23 08:00 Pulse Ox 97 06/23/23 08:00 FiO2 Intake & Output 06/22/23 06/23/23 06/23/23 18:59 06:59 18:59 Intake Total 591 Output Total 400 Balance 191 Intake: Oral 591 Output: Urine 400 Other: # Voids 2 0 - Labs CBC & Chem 7: 06/23/23 03:50 06/23/23 03:50 Labs: Abnormal Lab Results - Last 24 Hours (Table) 06/23/23 Range/Units 03:50 WBC 16.6 H (3.8-10.6) k/uL RBC 4.21 L (4.30-5.90) m/uL Neutrophils # 13.4 H (1.3-7.7) k/uL Microbiology - Last 24 Hours (Table) 06/17/23 05:35 Blood Culture - Final Blood
[2023-06-23] MEDS: ACETAMINOPHEN TAB 500 MG TAB PO PRN (15:45)
--- NOTE | 2023-06-23 17:19 | P.PN ---
Subjective Progress Note Date: 06/23/23 I am seeing this patient in new consultation today 06/15/2023 after he presented back on June 13 with concerns of right neck abscess patient is a 32-year-old white male with past medical history significant for IV drug abuse, hepatitis C, and is a current smoker. Patient originally presented to the emergency room on June 12 with concerns of right neck cellulitis/abscess. He says that it looked like a "spider bite". He was originally discharged home on Bactrim. He did try and drain the abscess with a nail and razor blade at home. He progressively became more weak and had subjective fevers at home. He continues to use IV heroin. He did come back to the emergency room on June 13. CT of the neck shows a 6 x 2 x 3 cm thin walled fluid collection within the right neck. Blood cultures are positive for presumptive MRSA. Chest CT shows multiple bilateral pulmonary cavitating nodules and masses. Considering the patient's history, these are concerning for septic emboli. There is a loculated right pleural effusion at the lung base. A 2-D transthoracic echocardiogram is pending. Patient has been started on IV vancomycin. CBC from yesterday shows a WBC count of 22.6, hemoglobin 13.3, hematocrit 40.9, platelets 272. BMP from admission shows a sodium 133, potassium 4.3, chloride 106, serum bicarb 20, BUN 19, creatinine 1.07, glucose 117. Patient is currently sitting up in bed, on room air, in no acute distress. He continues to be febrile with a T-max of 102.6F. Patient is hemodynamically stable at this time. The patient is seen today 06/16/2023 in follow-up in the intensive care unit. He is currently sitting up in bed. Awake and alert in no acute distress. He did have a fever early this morning of 101.2. He is maintaining O2 saturations in the 90s on 2 L/m per nasal cannula. He's been hemodynamically stable. He did undergo transesophageal echocardiogram which did not reveal any evidence of infective endocarditis. MRI of the head and neck did reveal a right posterior neck phlegmonos changes and early abscess. No evidence for extension into the brain. No evidence of osteitis. Blood cultures are positive for MRSA. White count 19.7. Hemoglobin 13.7. Platelets 185. Sodium 132. Potassium 4.7. Bicarb 22. BUN 17. Creatinine 0.81. Glucose 102. He is continued on vancomycin. Lovenox for DVT prophylaxis. NicoDerm patch in place. Normal saline at 75 ML's per hour. The patient is seen today 06/17/2023 in follow-up in the intensive care unit. He is currently sitting up in bed. Awake and alert in no acute distress. Maintaining O2 saturations in the 90s on 2 L/m per nasal cannula. He did undergo incision and drainage with irrigation and debridement of the right posterior neck abscess yesterday. Cultures positive for MRSA as well. White count 22.1. Hemoglobin 13.6. Platelets 364. Creatinine 0.78. GFR greater than 90. Vancomycin trough 9.4. He remains on vancomycin. NicoDerm patch in place. Lovenox for DVT prophylaxis. Continued on DuoNeb inhalations. The patient is seen today 06/18/2023 in follow-up on the regular medical floor. He is resting comfortably in bed. Awake and alert in no acute distress. M aintaining good O2 saturations in the 90s on room air. Chest x-ray continues show bilateral areas of consolidation and a small right effusion. More nodular masslike consolidation in the right upper lobe. Blood cultures positive for MRSA. Neck wound culture positive for MRSA. Follow-up blood cultures are pending. He's been on vancomycin. Lovenox for DVT prophylaxis. NicoDerm patches in place. White count 22.8. Hemoglobin 13.4. Platelets 385. Sodium 136. Potassium 4.3. Bicarb 24. BUN 9. Creatinine 0.75. Glucose 115. The patient is seen today 06/19/2023 in follow-up on the regular medical floor. He is currently awake and alert in no acute distress. Resting comfortably in bed. No worsening shortness of breath, cough or congestion. Maintaining good O2 saturations in the 90s on room air. He is continued on bronchodilators. Lovenox for DVT prophylaxis. NicoDerm patch in place. He is continued on vancomycin. Blood cultures and right neck wound cultures were positive for MRSA. Follow-up blood cultures are pending. Creatinine 0.83. GFR greater than 90. Vancomycin trough 12.9. The patient is seen today 06/20/2023 in follow-up on the regular medical floor. He is currently sitting up in a chair at the bedside. Awake and alert in no acute distress. He does have some complaints of shortness of breath. Some difficulty with deep inhalations. He is maintaining good O2 saturations in the 90s on room air. He is continued on bronchodilators. Working with the incentive spirometer. He remains on vancomycin. NicoDerm patch in place. Creatinine 0.74. GFR greater than 90. C-reactive protein 14.2. On today's evaluation of 06/21/2023, the patient is still complaining of discomfort along the right chest area. He is on room air oxygen. He remains on vancomycin. I reviewed the CAT scan of the chest and the patient had a moderate-sized left-sided right-sided pleural effusion. The white cell count remains elevated at 22.2. Hemoglobin is at 15.3. Stable creatinine of 0.7 with a BUN of 17. The repeat blood cultures from 06/18/2022 has been negative. The repeat blood culture from 06/17 has been negative. As such, the patient is not bacteremic. On today's examination, the patient continues to have diminished breath on the right lung base. Based on that, a noncontrast CAT scan of the chest was done that showed multiple masslike consolidative opacities in the right lung. several of those demonstrate central cavitation. the largest in the lateral right upper lobe as well as defined with central cavitation compared to prior examination. there is obvious denies a consent for septic pulmonary emboli. there is also slight decrease in size of the right-sided located pleural effusion. 06/22/2023, I'm seeing the patient for a follow-up. The patient remains on IV antibiotics. The plan is to put a PICC line and send this patient to a facility where he can complete his antibiotic course. I was concerned of the right-sided pleural effusion. Based on that, I repeated the CAT scan of the chest. The patient has multiple nodular opacities that are somewhat cavitating and this is consistent with staphylococcal septic emboli to the lung. At the same time, the right-sided pleural effusion was smaller in size. Based on that, I decided not to drain the fluid and continue with antibiotic course. He is on room air oxygen. He has no specific complaints.The white cell count is at 16 with a hemoglobin of 13.8, nitrites are normal, vancomycin trough was 14 from yesterday. 0.4 2022, no new complaints, and the patient remains on IV vancomycin with a level of 27.1. Creatinine stable at 0.7. Lites echoes at 16.6. Remains on room air oxygen. Continues to have some chest discomfort with cough. He does have some withdrawal symptoms from opiates. He remains on Catapres. Objective - Vital Signs Vital signs: Vital Signs Temp 98.8 F 06/23/23 14:00 Pulse 74 06/23/23 02:38 Resp 18 06/23/23 14:00 BP 122/77 06/23/23 14:00 Pulse Ox 97 06/23/23 14:00 FiO2 Intake & Output 06/22/23 06/23/23 06/23/23 18:59 06:59 18:59 Intake Total 591 Output Total 400 Balance 191 Intake: Oral 591 Output: Urine 400 Other: # Voids 2 2 - Exam GENERAL EXAM: Alert, pleasant 32-year-old male, up in a chair, on room air, comfortable in no apparent distress. HEAD: Normocephalic and atraumatic EYES: Normal reaction of pupils, equal size. NOSE: Clear with pink turbinates. THROAT: No erythema or exudates. NECK: No masses, no JVD. Right neck dressing dry and intact. CHEST: No chest wall deformity. LUNGS: Equal air entry with few scattered rhonchi. CVS: S1 and S2 normal with no audible murmur, regular rhythm. No extra heart sounds ABDOMEN: No hepatosplenomegaly, active bowel sounds, no guarding or rigidity. SPINE: No scoliosis or deformity SKIN: No rashes CENTRAL NERVOUS SYSTEM: No focal deficits, tone is normal in all 4 extremities. EXTREMITIES: There is no peripheral edema, clubbing, or cyanosis. Peripheral pulses are intact. - Labs CBC & Chem 7: 06/23/23 03:50 06/23/23 03:50 Labs: Abnormal Lab Results - Last 24 Hours (Table) 06/23/23 Range/Units 03:50 WBC 16.6 H (3.8-10.6) k/uL RBC 4.21 L (4.30-5.90) m/uL Neutrophils # 13.4 H (1.3-7.7) k/uL Assessment and Plan Plan: Right neck abscess, CT of the neck shows a 6 x 2 x 3 cm thin walled fluid collection within the right neck. Status post incision and drainage. Cultures revealing MRSA. MRI of the head and neck reveals a right posterior neck phlegmon as changes and early abscess. No evidence for extension into the brain. No evidence of osteitis. Currently on vancomycin. Transesophageal echocardiogram did not reveal any evidence of infective endocarditis MRSA bacteremia secondary to above Leukocytosis, secondary to above, the white cell count remains elevated Multiple cavitating pulmonary nodules and masses, concerning for septic emboli. Doubt malignancy, due to patient's age. The repeat CAT scan of the chest shows redemonstration of the multiple masslike no other consolidative opacities within the right lung. 7 of those demonstrate central cavitation consistent with septic pneumonia/septic embolism to the lung. Loculated right pleural effusion, this is slightly decreased in size History of hepatitis C Polysubstance abuse and IV drug abuse, including heroin dependency the patient is on Catapres 0.1 mg 3 times a day and the patient was also started on gabapentin 600 mg by mouth 3 times a day Current tobacco smoker Plan: Continue same treatment Monitor vancomycin level Stable electrolytes Renal function stable Catapres for heroin dependence and opiate withdrawal was The patient will benefit also from a MARCO MRI of the cervical spine was also ordered Blood cultures are negative for now Will need long-term antibiotics and this will be discussed with infectious disease Educated regarding complete drug use cessation, smoking cessation NicoDerm patch in place Stable and on room air We will continue to follow, may need to go to a nursing facility for IV antibiotic treatment.
[2023-06-24] MEDS: VANCOMYCIN 2,000 MG in SODIUM CHLORIDE 0.9% 500 ML 500 ML IVPB SCH (06:03)
[2023-06-24 06:33] LABS: ALT 53 U/L (4-49); AST 36 U/L (17-59); African American GFR (CKD) >90 (>60 ml/min/1.73 sqM); Albumin 3.4 g/dL (3.5-5.0); Albumin/Globulin Ratio 0.7; Alkaline Phosphatase 81 U/L (38-126); Anion Gap 13 mmol/L; Blood Urea Nitrogen 19 mg/dL (9-20); C Reactive Protein 4.9 mg/dL (<1.0); Calcium 9.2 mg/dL (8.4-10.2); Carbon Dioxide 22 mmol/L (22-30); Chloride 104 mmol/L (98-107); Globulin 4.6 g/dL; Glucose 105 mg/dL (74-99); Non-African American GFR(CKD) >90 (>60 ml/min/1.73 sqM); Potassium 4.7 mmol/L (3.5-5.1); Sodium 139 mmol/L (137-145); Total Bilirubin 0.3 mg/dL (0.2-1.3)
[2023-06-24] MEDS: ACETAMINOPHEN TAB 500 MG TAB PO PRN ×2 (08:16→18:52)
[2023-06-24] MEDS: NICOTINE 21MG/24HR PATCH TRANSDERM SCH (08:16)
[2023-06-24] MEDS: ENOXAPARIN 40 MG/0.4 ML SYRINGE SQ SCH (08:33)
[2023-06-24] MEDS: GABAPENTIN 400 MG CAP PO SCH ×3 (08:33→20:29)
[2023-06-24 08:45] LABS: Basophils # (A) 0.15 X 10*3/uL (0.00-0.10); Eosinophils # (A) 0.24 X 10*3/uL (0.04-0.35); Eosinophils % (A) 1.6 %; HGB 13.4 d/dL (13.0-17.0); Lymphocytes # (A) 2.82 X 10*3/uL (0.90-5.00); MCH 30.6 pg (27.0-32.0); MCHC 31.9 d/dL (32.0-37.0); MCV 95.9 FL (80.0-97.0); Mean Platelet Volume 10.8 FL (9.5-12.2); Monocytes # (A) 0.91 X 10*3/uL (0.20-1.00); Monocytes % (A) 6.1 %; NRBC Per 100 WBC 0 X 10*3/uL (0.00-0.01); Neutrophils # (A) 10.52 X 10*3/uL (1.80-7.70); Platelet Count 566 X 10*3/uL (140-440); RBC 4.38 X 10*6/uL (4.40-5.60); RDW 13.3 % (11.5-14.5); WBC 14.84 X 10*3/uL (4.50-10.00)
[2023-06-24] MEDS: IPRATROPIUM-ALBUTEROL 3 ML NEB INHALATION SCH ×4 (09:10→20:17)
[2023-06-24 09:43] LABS: Erythrocyte Sedimentation Rate >130 mm/Hr (0-15)
--- NOTE | 2023-06-24 14:48 | MR ---
EXAMINATION TYPE: MR cervical spine wo/w con DATE OF EXAM: 06/24/2023 2:13 PM COMPARISON: NONE HISTORY: abscess/osteomyelitis CONTRAST: The patient was injected with 14 mL intravenous gadolinium contrast. Multiplanar MultiSpin echo imaging of the cervical spine was performed. C2-C3: No evidence for degenerative disc disease. No disc bulge/herniation or protrusion. No Canal stenosis. Foramina are patent bilaterally. C3-C4: Mild disc desiccation noted. Mild posterior disc bulge with minimal effacement ventral thecal sac. No evidence of herniation or central stenosis. Foramina appear to be patent bilaterally. C4-C5: Mild disc desiccation noted. Mild posterior disc bulge with minimal effacement ventral thecal sac. No evidence of herniation or central stenosis. Foramina appear to be patent bilaterally. C5-C6: Mild disc desiccation noted. Mild posterior disc bulge with minimal effacement ventral thecal sac. No evidence of herniation or central stenosis. Foramina appear to be patent bilaterally. C6-C7:No evidence for degenerative disc disease. No disc bulge/herniation or protrusion. No Canal s tenosis. Foramina are patent bilaterally. C7-T1: No evidence for degenerative disc disease. No disc bulge/herniation or protrusion. No Canal stenosis. Foramina are patent bilaterally. No cervical spine fracture. There is normal alignment. Cervical spinal cord is of normal signal. C raniovertebral junction relationships are within normal limits. No pathologic enhancement. There is subcutaneous edema and enhancement noted which is partially imaged involving the upper right neck just distal to the occiput. Correlate for cellulitis. There is no MR evidence to suggest osteom yelitis or abscess. IMPRESSION: 1. There is subcutaneous edema and enhancement noted which is partially imaged involving the upper ri ght neck just distal to the occiput. Correlate for cellulitis. There is no MR evidence to suggest ost eomyelitis or abscess. 2. Mild degenerative disc disease and disc bulging is noted.
--- NOTE | 2023-06-24 15:16 | P.PN ---
Subjective Progress Note Date: 06/24/23 Principal diagnosis: Neck abscess MRSA bacteremia and possible septic emboli Patient is a 32-year-old male with a past medical history Nupercaine for IV drug use current everyday smoker presenting to the hospital for evaluation of painful lump to the right side of the posterior neck, patient did have a CT of the neck with evidence of fluid collection suspicious for abscess also with multiple pulmonary nodules suspicious for septic emboli. Patient did have a drainage of the posterior neck abscess by orthopedics on 06/15/2023, the patient did have a MARCO completed on 06/16/2023 that was negative for any vegetation On today's evaluation that is 06/24/2023, the patient remains to be afebrile, the patient is breathing comfortably on room air , the patient denies chest pain shortness of breath or cough, patient denies nausea/vomiting /diarrhea and no abdominal pain The patient white count is down 14.8, creatinine 0.75, blood cultures from 06/16/2023 as well as 06/17/2023 so far negative , MRI cervical spine did not show any osteomyelitis or abscess Objective - Vital Signs Vital signs: Vital Signs Temp 99.1 F 06/24/23 07:41 Pulse 82 06/24/23 08:00 Resp 18 06/24/23 08:00 BP 127/76 06/24/23 07:41 Pulse Ox 94 L 06/24/23 07:41 FiO2 Intake & Output 06/23/23 06/24/23 06/24/23 18:59 06:59 18:59 Intake Total 120 240 Balance 120 240 Intake: Oral 120 240 Other: Voiding Method Toilet Toilet Urinal Urinal # Voids 2 2 # Bowel Movements 1 - Exam GENERAL DESCRIPTION: A middle-age male lying in bed in no distress HEENT: Posterior neck area with area of induration swelling and tenderness RESPIRATORY SYSTEM: Unlabored breathing , decreased breath sounds at bases HEART: S1 S2 regular rate and rhythm , ABDOMEN: Soft , no tenderness EXTREMITIES: No edema feet - Labs CBC & Chem 7: 06/24/23 05:37 06/24/23 05:37 Labs: Abnormal Lab Results - Last 24 Hours (Table) 06/24/23 06/24/23 Range/Units 05:37 05:37 WBC 14.84 H (4.50-10.00) X 10*3/uL RBC 4.38 L (4.40-5.60) X 10*6/uL MCHC 31.9 L (32.0-37.0) d/dL Plt Count 566 H (140-440) X 10*3/uL Neutrophils # 10.52 H (1.80-7.70) X 10*3/uL Basophils # 0.15 H (0.00-0.10) X 10*3/uL ESR >130 H (0-15) mm/Hr Glucose 105 H (74-99) mg/dL ALT 53 H (4-49) U/L C-Reactive Protein 4.9 H (<1.0) mg/dL Albumin 3.4 L (3.5-5.0) g/dL Microbiology - Last 24 Hours (Table) 06/18/23 13:18 Blood Culture - Final Blood Assessment and Plan (1) Neck abscess Current Visit: Yes Status: Acute Code(s): L02.11 - CUTANEOUS ABSCESS OF NECK SNOMED Code(s): 3531278 (2) MRSA bacteremia Current Visit: Yes Status: Acute Code(s): R78.81 - BACTEREMIA; B95.62 - METHICILLIN RESIS STAPH INFCT CAUSING DISEASES [facility] SNOMED Code(s): 69625092562455476 Plan: 1patient presented to hospital with right posterior neck pain swelling and induration with evidence of abscess on the CT and also concerning for possible septic emboli in this patient who do have history of IV drug use high clinic suspicious for likely MRSA, gram-negative infection less likely but not entirely excluded 2CT of the chest did show some multiple nodules suspicious for septic emboli echocardiogram did not show any vegetation MRI of the brain did not show any septic emboli or acute changes, the patient did have a MARCO that was negative for any vegetation 3patient is afebrile, white count is trending down MRI of the cervical spine was negative for any abscess or osteomyelitis, plan is for a 6 week course of IV vancomycin pharmacy to dose with a target of 15 patient did get a PICC line, patient did have a history of IV drug use however seemed to have done well in the hospital without any withdrawal or drug-seeking behavior it has been explained to the patient in simple [place] he cannot use a PICC line for anyt jacki else as that can lead to immediate , the patient is awake alert oriented 3 did responded he has no intention of going back to using any drugs and wants to get his life back, at the same time it was explained to the patient he cannot miss a single dose as that can lead to worsening of infection we will do a weekly monitoring of his CRP and a sed rate and follow-up in the office in one week multiple questions concerned were answered and time spent coordinating the care with infusion company and the medical case manager Dictation was produced using [employer] software. please excuse any grammatical, word or spelling errors.
--- NOTE | 2023-06-24 15:41 | US ---
EXAMINATION TYPE: US venous doppler duplex UE DATE OF EXAM: 06/24/2023 COMPARISON: NONE CLINICAL INDICATION: Male, 32 years old with history of r/o Lemierre's disease; R/o Lemierre's diseas e. No hx of DVT. SIDE PERFORMED: Bilateral FINDINGS: Jive Developer notes: Right Arm: Internal echoes seen within right basilic vein from mid bicep down through forearm. Basili c vein does not compress here. Unable to visualize right cephalic vein. Left Arm: Limited visibility of medial subclavian vein. *Rouleaux flow was seen within left axillary vein, however vein does appear to compress and show colo r flow. Unable to visualize left cephalic vein. *Internal echoes seen within a superficial vessel within left forearm-unable to define with certainty which vessel this is. This vessel does not compress. PICC line seen within subclavian and basilic vein. Limited visibility at elbow due to bandage. IMPRESSION: RIGHT: 1. SVT involving the basilic vein. 2. Unable to identify the cephalic vein. 3. No evidence for DVT within the right upper extremity. LEFT: 4. SVT involving an unnamed vessel in the forearm. 5. PICC line noted within the basilic and subclavian vein. 6. Slow flow in the axillary vein but with satisfactory compressibility. No evidence for DVT. 7. Limited visualization of the lower subclavian vein as well as vessels at the elbow due to overlyin g dressing. 8. Unable to identify the cephalic vein.
--- NOTE | 2023-06-24 16:03 | P.PN ---
Subjective Progress Note Date: 06/24/23 Hospital Course: Patient is a 32-year-old male with heroin abuse who presented to the ER with complaints of right neck ulceration with pain and swelling. Patient had been clean for approximately 4 months when he relapsed 6 days ago. He was seen in the emergency department on ingrown pimple on the back of his neck and he was prescribed Bactrim. A repeat set at less than 24 hours later due to worsening infection. On arrival to the ER his vital signs are within normal limits. Laboratory analysis was remarkable for white blood cell count of 27.8, sodium 135, BUN 24. Chest x-ray showed no acute process. There was concern for worsening cellulitis despite oral antibiotics and is therefore admitted and placed on vancomycin and Zosyn. He was started on IV fluids. The next morning he was having worsening neck pain as well as withdrawal symptoms. Patient found to be bacteremic with chest CT concerning for septic emboli. ID, pulmonology, orthopedic surgery following. Patient currently in medical ICU. Patient had I&D. TTE did not show any vegetations, MARCO also did not show any vegetations. Remains on IV vancomycin. Repeat blood cultures have been negative so far. Patient pending discharge to nursing facility. Subjective: Patient seen and examined at bedside. No acute events overnight. C/o right flank pain. Gen: awake, alert HEENT: normocephalic, atraumatic, good hearing acuity, moist mucous membranes Resp: good air exchange, breathing comfortably with no accessory muscle use CVS: good distal perfusion x 4, GI: soft, NTTP, ND : no SPT, no CVAT, sanchez catheter not present MSK: no pitting edema, no clubbing Neuro: non-focal, moving all extremities Psych: cooperative, euthymic mood Assessment/Plan: Posterior right neck abscess status post I&D MRSA bacteremia Bilateral lung nodules with mass, appears more so like septic emboli Sepsis Loculated right lung base pleural effusion -Repeat blood cultures have been negative growth to date -ID following, will need IV abx at discharge = vancomycin for 6 weeks, discussed today -Neck abscess growing MRSA, likely source of bacteremia -Vancomycin with dosing based on trough. Monitor toxicity by following vancomycin trough levels and creatinine levels -Pulmonology following, loculated effusion too small to drain, has multiple septations -CT A/P ruled out intra-abdominal abscess -MRI ruled out cervical spine abscess or osteomyelitis Heroin dependency Opiate withdrawal - methadone weaned off -Catapres 0.1 mg by mouth 3 times daily as needed for withdrawal symptoms -Also started on gabapentin 400 3 times a day, increased to 400mg TID today Vitreous Floaters -Ophthalmology was consulted, Patient only agreed to limited exam. Does not appear to have a serious eye problem. Imaging: No new imaging Data Review: WBC 22.21, platelet 453, creatinine 0.75 DVT prophylaxis: Lovenox Anticipated discharge date: Pending Clinical Course Anticipated discharge place: Pending Clinical Course, if needed to have IV antibiotics at the time of discharge, patient is agreeable to go to a nursing facility Objective - Vital Signs Vital signs: Vital Signs Temp 98 F 06/24/23 14:00 Pulse 78 06/24/23 14:00 Resp 18 06/24/23 14:00 BP 149/71 06/24/23 14:00 Pulse Ox 96 06/24/23 14:00 FiO2 Intake & Output 06/23/23 06/24/23 06/24/23 18:59 06:59 18:59 Intake Total 120 480 Balance 120 480 Intake: Oral 120 480 Other: Voiding Method Toilet Toilet Urinal Urinal # Voids 2 2 # Bowel Movements 1 - Labs CBC & Chem 7: 06/24/23 05:37 06/24/23 05:37 Labs: Abnormal Lab Results - Last 24 Hours (Table) 06/24/23 06/24/23 Range/Units 05:37 05:37 WBC 14.84 H (4.50-10.00) X 10*3/uL RBC 4.38 L (4.40-5.60) X 10*6/uL MCHC 31.9 L (32.0-37.0) d/dL Plt Count 566 H (140-440) X 10*3/uL Neutrophils # 10.52 H (1.80-7.70) X 10*3/uL Basophils # 0.15 H (0.00-0.10) X 10*3/uL ESR >130 H (0-15) mm/Hr Glucose 105 H (74-99) mg/dL ALT 53 H (4-49) U/L C-Reactive Protein 4.9 H (<1.0) mg/dL Albumin 3.4 L (3.5-5.0) g/dL Microbiology - Last 24 Hours (Table) 06/18/23 13:18 Blood Culture - Final Blood
--- NOTE | 2023-06-24 16:54 | P.PN ---
Subjective Progress Note Date: 06/24/23 I am seeing this patient in new consultation today 06/15/2023 after he presented back on June 13 with concerns of right neck abscess patient is a 32-year-old white male with past medical history significant for IV drug abuse, hepatitis C, and is a current smoker. Patient originally presented to the emergency room on June 12 with concerns of right neck cellulitis/abscess. He says that it looked like a "spider bite". He was originally discharged home on Bactrim. He did try and drain the abscess with a nail and razor blade at home. He progressively became more weak and had subjective fevers at home. He continues to use IV heroin. He did come back to the emergency room on June 13. CT of the neck shows a 6 x 2 x 3 cm thin walled fluid collection within the right neck. Blood cultures are positive for presumptive MRSA. Chest CT shows multiple bilateral pulmonary cavitating nodules and masses. Considering the patient's history, these are concerning for septic emboli. There is a loculated right pleural effusion at the lung base. A 2-D transthoracic echocardiogram is pending. Patient has been started on IV vancomycin. CBC from yesterday shows a WBC count of 22.6, hemoglobin 13.3, hematocrit 40.9, platelets 272. BMP from admission shows a sodium 133, potassium 4.3, chloride 106, serum bicarb 20, BUN 19, creatinine 1.07, glucose 117. Patient is currently sitting up in bed, on room air, in no acute distress. He continues to be febrile with a T-max of 102.6F. Patient is hemodynamically stable at this time. The patient is seen today 06/16/2023 in follow-up in the intensive care unit. He is currently sitting up in bed. Awake and alert in no acute distress. He did have a fever early this morning of 101.2. He is maintaining O2 saturations in the 90s on 2 L/m per nasal cannula. He's been hemodynamically stable. He did undergo transesophageal echocardiogram which did not reveal any evidence of infective endocarditis. MRI of the head and neck did reveal a right posterior neck phlegmonos changes and early abscess. No evidence for extension into the brain. No evidence of osteitis. Blood cultures are positive for MRSA. White count 19.7. Hemoglobin 13.7. Platelets 185. Sodium 132. Potassium 4.7. Bicarb 22. BUN 17. Creatinine 0.81. Glucose 102. He is continued on vancomycin. Lovenox for DVT prophylaxis. NicoDerm patch in place. Normal saline at 75 ML's per hour. The patient is seen today 06/17/2023 in follow-up in the intensive care unit. He is currently sitting up in bed. Awake and alert in no acute distress. Maintaining O2 saturations in the 90s on 2 L/m per nasal cannula. He did undergo incision and drainage with irrigation and debridement of the right posterior neck abscess yesterday. Cultures positive for MRSA as well. White count 22.1. Hemoglobin 13.6. Platelets 364. Creatinine 0.78. GFR greater than 90. Vancomycin trough 9.4. He remains on vancomycin. NicoDerm patch in place. Lovenox for DVT prophylaxis. Continued on DuoNeb inhalations. The patient is seen today 06/18/2023 in follow-up on the regular medical floor. He is resting comfortably in bed. Awake and alert in no acute distress. M aintaining good O2 saturations in the 90s on room air. Chest x-ray continues show bilateral areas of consolidation and a small right effusion. More nodular masslike consolidation in the right upper lobe. Blood cultures positive for MRSA. Neck wound culture positive for MRSA. Follow-up blood cultures are pending. He's been on vancomycin. Lovenox for DVT prophylaxis. NicoDerm patches in place. White count 22.8. Hemoglobin 13.4. Platelets 385. Sodium 136. Potassium 4.3. Bicarb 24. BUN 9. Creatinine 0.75. Glucose 115. The patient is seen today 06/19/2023 in follow-up on the regular medical floor. He is currently awake and alert in no acute distress. Resting comfortably in bed. No worsening shortness of breath, cough or congestion. Maintaining good O2 saturations in the 90s on room air. He is continued on bronchodilators. Lovenox for DVT prophylaxis. NicoDerm patch in place. He is continued on vancomycin. Blood cultures and right neck wound cultures were positive for MRSA. Follow-up blood cultures are pending. Creatinine 0.83. GFR greater than 90. Vancomycin trough 12.9. The patient is seen today 06/20/2023 in follow-up on the regular medical floor. He is currently sitting up in a chair at the bedside. Awake and alert in no acute distress. He does have some complaints of shortness of breath. Some difficulty with deep inhalations. He is maintaining good O2 saturations in the 90s on room air. He is continued on bronchodilators. Working with the incentive spirometer. He remains on vancomycin. NicoDerm patch in place. Creatinine 0.74. GFR greater than 90. C-reactive protein 14.2. On today's evaluation of 06/21/2023, the patient is still complaining of discomfort along the right chest area. He is on room air oxygen. He remains on vancomycin. I reviewed the CAT scan of the chest and the patient had a moderate-sized left-sided right-sided pleural effusion. The white cell count remains elevated at 22.2. Hemoglobin is at 15.3. Stable creatinine of 0.7 with a BUN of 17. The repeat blood cultures from 06/18/2022 has been negative. The repeat blood culture from 06/17 has been negative. As such, the patient is not bacteremic. On today's examination, the patient continues to have diminished breath on the right lung base. Based on that, a noncontrast CAT scan of the chest was done that showed multiple masslike consolidative opacities in the right lung. several of those demonstrate central cavitation. the largest in the lateral right upper lobe as well as defined with central cavitation compared to prior examination. there is obvious denies a consent for septic pulmonary emboli. there is also slight decrease in size of the right-sided located pleural effusion. 06/22/2023, I'm seeing the patient for a follow-up. The patient remains on IV antibiotics. The plan is to put a PICC line and send this patient to a facility where he can complete his antibiotic course. I was concerned of the right-sided pleural effusion. Based on that, I repeated the CAT scan of the chest. The patient has multiple nodular opacities that are somewhat cavitating and this is consistent with staphylococcal septic emboli to the lung. At the same time, the right-sided pleural effusion was smaller in size. Based on that, I decided not to drain the fluid and continue with antibiotic course. He is on room air oxygen. He has no specific complaints.The white cell count is at 16 with a hemoglobin of 13.8, nitrites are normal, vancomycin trough was 14 from yesterday. 0.4 2022, no new complaints, and the patient remains on IV vancomycin with a level of 27.1. Creatinine stable at 0.7. Lites echoes at 16.6. Remains on room air oxygen. Continues to have some chest discomfort with cough. He does have some withdrawal symptoms from opiates. He remains on Catapres. On 06/24/2023, the patient's condition is stable and vancomycin. MARCO showed no valvular vegetation the patient remains on IV vancomycin. MRI of the cervical spine showed subcu is edema and enhancement noted involving the upper neck area just distal to the occiput, chlorides with cellulitis. No evidence of any osteomyelitis or abscess formation. Ultrasound Doppler of the upper extremity showed superficial venous thrombosis involving the basilic veins, unable to evaluate the cephalic veins, no evidence of a DVT in the right upper extremity. Labs are stable and the white cell count is down 14.8 with a hemoglobin 15.4, renal function shows a BUN of 19 with a creatinine of 0.7. Objective - Vital Signs Vital signs: Vital Signs Temp 98 F 06/24/23 14:00 Pulse 78 06/24/23 14:00 Resp 18 06/24/23 14:00 BP 149/71 06/24/23 14:00 Pulse Ox 96 06/24/23 14:00 FiO2 Intake & Output 06/23/23 06/24/23 06/24/23 18:59 06:59 18:59 Intake Total 120 480 Balance 120 480 Intake: Oral 120 480 Other: Voiding Method Toilet Toilet Urinal Urinal # Voids 2 2 # Bowel Movements 1 - Exam GENERAL EXAM: Alert, pleasant 32-year-old male, up in a chair, on room air, comfortable in no apparent distress. HEAD: Normocephalic and atraumatic EYES: Normal reaction of pupils, equal size. NOSE: Clear with pink turbinates. THROAT: No erythema or exudates. NECK: No masses, no JVD. Right neck dressing dry and intact. CHEST: No chest wall deformity. LUNGS: Equal air entry with few scattered rhonchi. CVS: S1 and S2 normal with no audible murmur, regular rhythm. No extra heart sounds ABDOMEN: No hepatosplenomegaly, active bowel sounds, no guarding or rigidity. SPINE: No scoliosis or deformity SKIN: No rashes CENTRAL NERVOUS SYSTEM: No focal deficits, tone is normal in all 4 extremities. EXTREMITIES: There is no peripheral edema, clubbing, or cyanosis. Peripheral pulses are intact. - Labs CBC & Chem 7: 06/24/23 05:37 06/24/23 05:37 Labs: Abnormal Lab Results - Last 24 Hours (Table) 06/24/23 06/24/23 Range/Units 05:37 05:37 WBC 14.84 H (4.50-10.00) X 10*3/uL RBC 4.38 L (4.40-5.60) X 10*6/uL MCHC 31.9 L (32.0-37.0) d/dL Plt Count 566 H (140-440) X 10*3/uL Neutrophils # 10.52 H (1.80-7.70) X 10*3/uL Basophils # 0.15 H (0.00-0.10) X 10*3/uL ESR >130 H (0-15) mm/Hr Glucose 105 H (74-99) mg/dL ALT 53 H (4-49) U/L C-Reactive Protein 4.9 H (<1.0) mg/dL Albumin 3.4 L (3.5-5.0) g/dL Microbiology - Last 24 Hours (Table) 06/18/23 13:18 Blood Culture - Final Blood Assessment and Plan Plan: Right neck abscess, CT of the neck shows a 6 x 2 x 3 cm thin walled fluid collection within the right neck. Status post incision and drainage. Cultures revealing MRSA. MRI of the head and neck reveals a right posterior neck phlegmon as changes and early abscess. No evidence for extension into the brain. No evidence of osteitis. Currently on vancomycin. Transesophageal echocardiogram did not reveal any evidence of infective endocarditis, MRI of the cervical spine showed no evidence of any abscesses. MRSA bacteremia secondary to above, repeat cultures are negative and the patient remains on vancomycin Leukocytosis, secondary to above, the white cell count is slightly improving Multiple cavitating pulmonary nodules and masses, concerning for septic emboli. Doubt malignancy, due to patient's age. The repeat CAT scan of the chest shows redemonstration of the multiple masslike no other consolidative opacities within the right lung. 7 of those demonstrate central cavitation consistent with septic pneumonia/septic embolism to the lung. Loculated right pleural effusion, this is slightly decreased in size History of hepatitis C Polysubstance abuse and IV drug abuse, including heroin dependency the patient is on Catapres 0.1 mg 3 times a day and the patient was also started on gabapentin 600 mg by mouth 3 times a day Current tobacco smoker Superficial venous thrombosis involving the upper extremity Plan: Continue same treatment Monitor vancomycin level Stable electrolytes Renal function stable Catapres for heroin dependence and opiate withdrawal was MARCO is negative for vegetation MRI of the cervical spine was negative for abscess Blood cultures are negative for now Will need long-term antibiotics and this will be discussed with infectious disease Educated regarding complete drug use cessation, smoking cessation NicoDerm patch in place Stable and on room air We will continue to follow, may need to go to a nursing facility for IV antibiotic treatment.
[2023-06-24] MEDS: VANCOMYCIN 1,750 MG in SODIUM CHLORIDE 0.9% 500 ML 500 ML IVPB SCH (17:07)
[2023-06-25] MEDS: VANCOMYCIN 1,750 MG in SODIUM CHLORIDE 0.9% 500 ML 500 ML IVPB SCH ×2 (01:50→08:08)
[2023-06-25] MEDS: ZOLPIDEM 5 MG TAB PO PRN (01:50)
[2023-06-25] MEDS: ACETAMINOPHEN TAB 500 MG TAB PO PRN (07:58)
[2023-06-25] MEDS: NICOTINE 21MG/24HR PATCH TRANSDERM SCH (07:59)
[2023-06-25] MEDS: ENOXAPARIN 40 MG/0.4 ML SYRINGE SQ SCH (07:59)
[2023-06-25] MEDS: GABAPENTIN 400 MG CAP PO SCH (07:59)
[2023-06-25 08:03] VITALS: BP 130/70; RESP 18; TEMP 98.5
[2023-06-25] MEDS: IPRATROPIUM-ALBUTEROL 3 ML NEB INHALATION SCH ×2 (08:40→11:51)
[2023-06-25 09:30] VITALS: PULSE 84
--- NOTE | 2023-06-25 11:01 | P.PN ---
Subjective Progress Note Date: 06/25/23 Principal diagnosis: Neck abscess MRSA bacteremia and possible septic emboli Patient is a 32-year-old male with a past medical history Nupercaine for IV drug use current everyday smoker presenting to the hospital for evaluation of painful lump to the right side of the posterior neck, patient did have a CT of the neck with evidence of fluid collection suspicious for abscess also with multiple pulmonary nodules suspicious for septic emboli. Patient did have a drainage of the posterior neck abscess by orthopedics on 06/15/2023, the patient did have a MARCO completed on 06/16/2023 that was negative for any vegetation On today's evaluation that is 06/25/2023, the patient is afebrile, the patient is breathing comfortably on room air , the patient still complaining of some chest pain however decrease in intensity denies any worsening cough, patient denies Abdominal pain , no nausea/vomiting /diarrhea The patient white count is down 14.8, creatinine 0.75 as of yesterday, blood cultures from 06/16/2023 as well as 06/17/2023 so far negative , MRI cervical spine did not show any osteomyelitis or abscess Objective - Vital Signs Vital signs: Vital Signs Temp 98.5 F 06/25/23 07:54 Pulse 91 06/25/23 07:54 Resp 18 06/25/23 07:54 BP 130/70 06/25/23 07:54 Pulse Ox 95 06/25/23 07:54 FiO2 Intake & Output 06/24/23 06/25/23 06/25/23 18:59 06:59 18:59 Intake Total 952 Balance 952 Intake: Oral 952 Other: Voiding Method Toilet Toilet Urinal Urinal # Voids 1 3 # Bowel Movements 1 - Exam GENERAL DESCRIPTION: A middle-age male lying in bed in no distress HEENT: Posterior neck area with area of induration swelling and tenderness RESPIRATORY SYSTEM: Unlabored breathing , decreased breath sounds at bases HEART: S1 S2 regular rate and rhythm , ABDOMEN: Soft , no tenderness EXTREMITIES: No edema feet - Labs CBC & Chem 7: 06/24/23 05:37 06/24/23 05:37 Labs: Abnormal Lab Results - Last 24 Hours (Table) 06/24/23 Range/Units 05:37 ESR >130 H (0-15) mm/Hr Assessment and Plan (1) Neck abscess Current Visit: Yes Status: Acute Code(s): L02.11 - CUTANEOUS ABSCESS OF NECK SNOMED Code(s): 5924534 (2) MRSA bacteremia Current Visit: Yes Status: Acute Code(s): R78.81 - BACTEREMIA; B95.62 - METHICILLIN RESIS STAPH INFCT CAUSING DISEASES CLASSD ELSWHR SNOMED Code(s): 76651230123947344 Plan: 1patient presented to hospital with right posterior neck pain swelling and induration with evidence of abscess on the CT and also concerning for possible septic emboli in this patient who do have history of IV drug use high clinic suspicious for likely MRSA, gram-negative infection less likely but not entirely excluded 2CT of the chest did show some multiple nodules suspicious for septic emboli echocardiogram did not show any vegetation MRI of the brain did not show any septic emboli or acute changes, the patient did have a MARCO that was negative for any vegetation 3patient is afebrile, white count is trending down MRI of the cervical spine was negative for any abscess or osteomyelitis, plan is for a 6 week course of IV vancomycin pharmacy to dose with a target of 15 patient did get a PICC line, now with evidence of possible SVT the patient has been started on Xeralto by admitting team we will continue the patient on vancomycin pharmacy to dose that is for a total of 6 week course of therapy patient has been instructed again to not use PICC line for any thing else and to infuse his vancomycin on time every day as scheduled by the pharmacist we will monitor his kidney function and inflammatory markers closely in the outpatient setting and close outpatient follow-up Dictation was produced using [employer] dictation software. please excuse any grammatical, word or spelling errors.
--- NOTE | 2023-06-25 14:46 | P.DS ---
Providers Date of admission: 06/13/23 00:23 Expected date of discharge: 06/25/23 Attending physician: Sonia Isidro MD Consults: 06/13/23 00:38 Consult Physician Routine Consulting Provider: Krystian Cason Consult Reason/Comments: cellulitis Do you want consulting provider notified?: Yes 06/13/23 16:32 Consult Physician Routine Consulting Provider: Kun Daniel Consult Reason/Comments: visual disturbance Do you want consulting provider notified?: Yes 06/14/23 14:27 Consult Physician Routine Consulting Provider: Roland Sanchez Consult Reason/Comments: neck abscess Do you want consulting provider notified?: Yes 06/14/23 17:58 Consult Physician Routine Consulting Provider: Faisal Jama Consult Reason/Comments: pleural effusion Do you want consulting provider notified?: Yes 06/24/23 16:02 Consult Physician Routine Consulting Provider: Pj Chung Consult Reason/Comments: SVT, consideration of therapeutic AC? Do you want consulting provider notified?: Yes Primary care physician: Stated None Hospital Course: Posterior right neck abscess status post I&D MRSA bacteremia Bilateral lung nodules with mass, appears more so like septic emboli Sepsis Loculated right lung base pleural effusion Heroin dependency Opiate withdrawal Vitreous Floaters Hospital Course: Patient is a 32-year-old male with heroin abuse who presented to the ER with complaints of right neck ulceration with pain and swelling. Patient had been clean for approximately 4 months when he relapsed 6 days ago. He was seen in the emergency department on ingrown pimple on the back of his neck and he was prescribed Bactrim. A repeat set at less than 24 hours later due to worsening infection. On arrival to the ER his vital signs are within normal limits. Laboratory analysis was remarkable for white blood cell count of 27.8, sodium 135, BUN 24. Chest x-ray showed no acute process. There was concern for worsening cellulitis despite oral antibiotics and is therefore admitted and placed on vancomycin and Zosyn. He was started on IV fluids. The next morning he was having worsening neck pain as well as withdrawal symptoms. Patient found to be bacteremic with chest CT concerning for septic emboli. ID, pulmonology, orthopedic surgery following. Patient currently in medical ICU. Patient had I&D. TTE did not show any vegetations, MARCO also did not show any vegetations. Remains on IV vancomycin. Repeat blood cultures have been negative so far. Patient also underwent MRI C-spine to rule out abscess/osteomyelitis. Underwent CT A/P which did not show intra-abdominal abscesses. Pt was discharged home with Left PICC line and 6 weeks of abx planned. He did also undergo UE Duplex US which showed some left sided blood clot, and was seen by hematology who recommended prophylactic AC with xarelto while PICC line remained in as well as f/u in 2 weeks with repeat imaging. Pt has f/u with ID, and will establish care with PCP. I spent 48 minutes coordinating this discharge on 06/25 Gen: awake, alert HEENT: normocephalic, atraumatic, good hearing acuity, moist mucous membranes Resp: good air exchange, breathing comfortably with no accessory muscle use CVS: good distal perfusion x 4, GI: soft, NTTP, ND : no SPT, no CVAT, sanchez catheter not present MSK: no pitting edema, no clubbing Neuro: non-focal, moving all extremities Psych: cooperative, euthymic mood Patient Condition at Discharge: Good Plan - Discharge Summary Discharge Rx Participant: No New Discharge Prescriptions: New Vancomycin HCl in 5 % Dextrose [Vancomycin 1 Gram/250 ml-D5w] 1.5 gm IV Q8HR #120 each Zolpidem [Ambien] See Rx Instructions .ROUTE .COMPLEX PRN #10 tab PRN Reason: Insomnia Acetaminophen Tab [Tylenol] 1,000 mg PO Q6H PRN tab PRN Reason: Pain Rivaroxaban [Xarelto] 10 mg PO DAILY #42 tab Gabapentin [Neurontin] See Rx Instructions .ROUTE .COMPLEX 7 Days #101 cap Discontinued Lidocaine 5% Patch [Lidoderm 5% Patch] 1 patch TOPICAL DAILY PRN 14 Days #14 patch PRN Reason: Pain Sulfamethox-Tmp 800-160Mg [Bactrim DS 800-160 mg] 1 tab PO Q12HR 7 Days #14 tab Discharge Medication List Vancomycin HCl in 5 % Dextrose [Vancomycin 1 Gram/250 ml-D5w] 1.5 gm IV Q8HR #120 each 06/24/23 [Rx] Acetaminophen Tab [Tylenol] 1,000 mg PO Q6H PRN tab 06/25/23 [Rx] Gabapentin [Neurontin] See Rx Instructions .ROUTE .COMPLEX 7 Days #101 cap 06/25/23 [Rx] Rivaroxaban [Xarelto] 10 mg PO DAILY #42 tab 06/25/23 [Rx] Zolpidem [Ambien] See Rx Instructions .ROUTE .COMPLEX PRN #10 tab 06/25/23 [Rx] Follow up Appointment(s)/Referral(s): [facility], [NON-STAFF] - 1 Week [facility],Infusion [NON-STAFF] - 1 Week None,Stated [Primary Care Provider] - 1 Week Krystian Cason MD [STAFF PHYSICIAN] - 07/12/23 2:30 pm (Appointment for 2nd antibiotic will be on Aug.04 @2:30pm. office address is [address] [place] [address]. ) Ambulatory/Diagnostic Orders: Basic Metabolic Panel [LAB.AMB] Location: None Selected C Reactive Protein [LAB.AMB] Location: None Selected Complete Blood Count w/diff [LAB.AMB] Location: None Selected Erythrocyte Sedimentation Rate [LAB.AMB] Location: None Selected Miscellaneous Radiology Order [RAD.AMB] Time Frame: 2 Weeks, Location: None Selected Patient Instructions/Handouts: MRSA (Methicillin-Resistant Staphylococcus Aureus) (GEN), Cellulitis (GEN), Deep Vein Thrombosis (DC), Leukocytosis (DC) Discharge/Stand Alone Forms: Who Do I Call?, Community Resources, Outpatient Counseling, Inp Substance Abuse Facilities, Area PCPs Discharge Disposition: HOME WITH HOME HEALTH SERVICES
[2023-06-25] MEDS ORDERED: VANCOMYCIN TROUGH DUE 1 EACH MISC MISCELLANE ONE (15:00)
--- NOTE | 2023-06-27 09:43 | P.CONS ---
History of Present Illness - Reason for Consult Consult date: 06/25/23 SVT Requesting physician: Tona Martinez - Chief Complaint cellulitis, LUE swelling - History of Present Illness Patient is a 32-year-old male with a past medical history IVDA. Pt presented to the hospital for painful red lump to the right side of the neck. Of note pt was seen previous to the admission for the same and was started on Bactrim. Pt reports symptoms began to worsen and also began experiencing generalized body aches and chills. Upon admission CT neck soft tissue revealed 6 x 2 x 3 posterior right neck abscess with suspected septic emboli. S/p I&D of neck abscess. Blood cultures and wound culture positive for MRSA. Patient continues on IV antibiotics. Bilateral upper extremities Dopplers revealed RUE SVT within basilic vein and also unable to identify the cephalic vein. Negative for DVT. Left upper extremity revealed SVT involving unknown vessel of forearm. Noted PICC line within the basilic and subclavian vein. Slow flow in the axillary v ein with satisfactory compressibility. Negative for DVT. On prophylactic dose Lovenox daily. Leukocytosis improving, WBC 14.8. Plts 566,000. Pt remains afebrile Review of Systems 10 point ROS is negative except as stated in the HPI Past Medical History Past Medical History: No Reported History Additional Past Medical History / Comment(s): IV drug use (heroine) History of Any Multi-Drug Resistant Organisms: None Reported Year Discovered:: 06/15/23 MDRO Source:: Neck Past Surgical History: No Surgical Hx Reported Past Psychological History: No Psychological Hx Reported Smoking Status: Current every day smoker Past Alcohol Use History: None Reported Past Drug Use History: Heroin, IV Drug Use, Marijuana, Opiates, Prescription Drug Abuse - Past Family History Mother Family Medical History: Unable to Obtain (Patient refused to provide family hi story) Medications and Allergies Home Medications Medication Instructions Recorded Confirmed Type Vancomycin HCl in 5 % Dextrose 1.5 gm IV Q8HR #120 each 06/24/23 Rx [Vancomycin 1 Gram/250 ml-D5w] Acetaminophen Tab [Tylenol] 1,000 mg PO Q6H PRN tab 06/25/23 Rx Gabapentin [Neurontin] See Rx Instructions .ROUTE 06/25/23 Rx .COMPLEX 7 Days #101 cap Rivaroxaban [Xarelto] 10 mg PO DAILY #42 tab 06/25/23 Rx Zolpidem [Ambien] See Rx Instructions .ROUTE 06/25/23 Rx .COMPLEX PRN #10 tab Allergies Allergy/AdvReac Type Severity Reaction Status Date / Time No Known Allergies Allergy Verified 06/13/23 10:32 Physical Exam Vitals: Vital Signs Temp Pulse Pulse Resp BP Pulse Ox 06/25/23 08:00 84 91 18 06/25/23 07:54 98.5 F 91 18 130/70 95 06/25/23 02:37 98.3 F 84 15 122/68 95 06/24/23 20:30 78 18 06/24/23 19:41 98.1 F 84 15 127/74 97 06/24/23 14:00 98 F 78 18 149/71 96 Intake and Output 06/24/23 06/25/23 06/25/23 22:59 06:59 14:59 Intake Total 472 Balance 472 Intake: Oral 472 Other: Voiding Method Toilet Toilet Urinal Urinal # Voids 1 3 # Bowel Movements 1 - Constitutional General appearance: average body habitus, no acute distress - EENT Eyes: anicteric sclerae, EOMI ENT: hearing grossly normal - Neck right side neck bandage in place - Respiratory Respiratory: bilateral: CTA - Cardiovascular mild LUE edema, no erythema or warmth noted Rhythm: regular Heart sounds: normal: S1, S2 Abnormal Heart Sounds: no systolic murmur, no diastolic murmur, no rub, no S3 Gallop, no S4 Gallop, no click, no other - Gastrointestinal General gastrointestinal: soft, no tenderness - Integumentary right sided posterior neck abscess/cellulitis Integumentary: no cyanotic, no jaundiced - Musculoskeletal Musculoskeletal: strength equal bilaterally - Psychiatric Psychiatric: A&O x's 3, appropriate affect, intact judgment & insight Results CBC & Chem 7: 06/24/23 05:37 06/24/23 05:37 Comments: CT neck and dopplers reviewed Venous US: report reviewed Assessment and Plan (1) Cellulitis of neck Status: Acute Priority: High Code(s): L03.221 - CELLULITIS OF NECK SNOMED Code(s): 70264684 (2) Superficial venous thrombosis of arm Status: Acute Priority: High Code(s): I82.619 - ACUTE EMBOLISM AND THROMBOSIS OF SUPERFIC VN UNSP UP EXTREM SNOMED Code(s): 22078248877081951 Plan: Cellulitis: -S/p I&D of neck abscess. Blood cultures and wound culture positive for MRSA. Patient continues on IV antibiotics. Repeat blood cultures negative. Leukocytosis improving, WBC 14.8. -PICC line in place, with plans to continue IV abx. ID following SVT bilateral upper extremities: -Bilateral upper extremities Dopplers revealed RUE SVT within basilic vein and also unable to identify the cephalic vein. Negative for DVT. Left upper extremity revealed SVT involving unknown vessel of forearm. Noted PICC line within the basilic and subclavian vein. Slow flow in the axillary vein with satisfactory compressibility. Negative for DVT. -Due to history of IVDA and PICC line within left upper extremity patient is at increased risk for thrombus. Spoke with internal medicine team and recommended prophylactic dose of Eliquis or Xarelto daily while PICC line is in place and to reimage bilateral upper extremities within the next couple weeks for reevaluation of underlying SVTs attests: I seen and examined patient, performed H&P, developed impression and plan of care. Discussed with dictator. Agree with documentation, dictated as a scribe.
== END 2023-06-25 12:03 | disposition home health service (06) | DRG 853 ==
LOC: EC 21:42 → 5NMEDONC 06-13 00:23 → 2SICU 06-15 09:13 → 6NMEDSUR 06-17 15:21
PROVIDERS: ADMIT Internal Medicine; ATTEND Internal Medicine
PROC: 0J9400Z Drainage of Right Neck Subcutaneous Tissue and Fascia with Drainage Device, Open Approach (ICD-10-PCS; 2023-06-15)
PROC: 0KB20ZZ Excision of Right Neck Muscle, Open Approach (ICD-10-PCS; principal; 2023-06-15 07:30)
PROC: B24BZZ4 Ultrasonography of Heart with Aorta, Transesophageal (ICD-10-PCS; 2023-06-16)
PROC: 02HV33Z Insertion of Infusion Device into Superior Vena Cava, Percutaneous Approach (ICD-10-PCS; 2023-06-23)
DX: A41.02 Sepsis due to Methicillin resistant Staphylococcus aureus (principal); I26.90 Septic pulmonary embolism without acute cor pulmonale; I40.0 Infective myocarditis; I76 Septic arterial embolism; I74.9 Embolism and thrombosis of unspecified artery; F11.23 Opioid dependence with withdrawal; L02.11 Cutaneous abscess of neck; J91.8 Pleural effusion in other conditions classified elsewhere; I82.613 Acute embolism and thrombosis of superficial veins of upper extremity, bilateral; L03.221 Cellulitis of neck; L03.114 Cellulitis of left upper limb; H43.393 Other vitreous opacities, bilateral; I11.9 Hypertensive heart disease without heart failure; F17.210 Nicotine dependence, cigarettes, uncomplicated; F41.9 Anxiety disorder, unspecified; L73.1 Pseudofolliculitis barbae; B95.62 Methicillin resistant Staphylococcus aureus infection as the cause of diseases classified elsewhere; Z20.822 Contact with and (suspected) exposure to COVID-19; Z28.310 Unvaccinated for COVID-19; Z79.01 Long term (current) use of anticoagulants; Z86.19 Personal history of other infectious and parasitic diseases
CPT/HCPCS: 36415; 36573; 70460; 70491; 70553; 71045; 71250; 71260; 72156; 74177; 76604; 80048; 80051; 80053; 80202; 82565; 83605; 83735; 85025; 85027; 85652; 86140; 87040; 87070; 87075; 87077; 87102; 87186; 87205; 87636; 93306; 93312; 93320; 93325; 93970; 94640; 96361; 96374; 96375; 99284

== ENCOUNTER → 2023-06-30 | Outpatient (CLI) | payer OTHER ==
[2023-06-30 15:37] LABS: Basophils # (A) 0.13 X 10*3/uL (0.00-0.10); Basophils % (A) 1.4 %; Eosinophils % (A) 2.2 %; HCT 45.2 % (39.6-50.0); HGB 14.4 d/dL (13.0-17.0); Lymphocytes # (A) 2.57 X 10*3/uL (0.90-5.00); Lymphocytes % (A) 28.1 %; MCH 30.4 pg (27.0-32.0); MCHC 31.9 d/dL (32.0-37.0); MCV 95.6 FL (80.0-97.0); Mean Platelet Volume 10.7 FL (9.5-12.2); Monocytes # (A) 0.75 X 10*3/uL (0.20-1.00); Monocytes % (A) 8.2 %; NRBC Per 100 WBC 0 X 10*3/uL (0.00-0.01); Neutrophils # (A) 5.45 X 10*3/uL (1.80-7.70); Neutrophils % (A) 59.4 %; Platelet Count 457 X 10*3/uL (140-440); RBC 4.73 X 10*6/uL (4.40-5.60); WBC 9.16 X 10*3/uL (4.50-10.00)
[2023-06-30 16:49] LABS: Erythrocyte Sedimentation Rate 89 mm/Hr (0-15)
== END | disposition home or self-care (01) ==
LOC: LABWHC1 08:56
PROVIDERS: ATTEND Emergency Medicine
DX: L03.221 Cellulitis of neck (principal); L02.11 Cutaneous abscess of neck
CPT/HCPCS: 36415; 80053; 80202; 85025; 85652; 86140

== ENCOUNTER → 2023-07-12 | Outpatient (CLI) | payer OTHER ==
[2023-07-13 04:06] LABS: ALT 28 U/L (10-49); AST 21 U/L (14-35); Albumin 4.2 d/dL (3.8-4.9); Albumin/Globulin Ratio 1.17 Ratio (1.60-3.17); Alkaline Phosphatase 82 U/L (41-126); BUN/Creat Ratio 17.56 Ratio (12.00-20.00); Blood Urea Nitrogen 15.8 mg/dL (9.0-27.0); Calcium 9.6 mg/dL (8.7-10.3); Carbon Dioxide 22.2 mmol/L (21.6-31.8); Chloride 104 mmol/L (96-109); Globulin 3.6 d/dL (1.6-3.3); Glucose 88 mg/dL (70-110); Potassium 4.2 mmol/L (3.5-5.5); Sodium 141 mmol/L (135-145); Total Bilirubin <0.2 mg/dL (0.3-1.2); Total Protein 7.8 d/dL (6.2-8.2); Vancomycin,Random 15.7 UG/ML (0.0-40.0)
[2023-07-13 05:54] LABS: Basophils % (A) 0.9 %; Eosinophils # (A) 0.21 X 10*3/uL (0.04-0.35); HCT 46.1 % (39.6-50.0); HGB 14.9 d/dL (13.0-17.0); Lymphocytes # (A) 2.47 X 10*3/uL (0.90-5.00); MCH 30.8 pg (27.0-32.0); MCHC 32.3 d/dL (32.0-37.0); MCV 95.2 FL (80.0-97.0); Mean Platelet Volume 12.9 FL (9.5-12.2); Monocytes # (A) 0.89 X 10*3/uL (0.20-1.00); Monocytes % (A) 8.3 %; NRBC Per 100 WBC 0 X 10*3/uL (0.00-0.01); Neutrophils # (A) 7.01 X 10*3/uL (1.80-7.70); Neutrophils % (A) 65.4 %; Platelet Count 244 X 10*3/uL (140-440); RBC 4.84 X 10*6/uL (4.40-5.60); RDW 13.7 % (11.5-14.5); WBC 10.72 X 10*3/uL (4.50-10.00)
[2023-07-13 06:05] LABS: Erythrocyte Sedimentation Rate 60 mm/Hr (0-15)
== END | disposition home or self-care (01) ==
LOC: LABWHC1 15:00
PROVIDERS: ATTEND Internal Medicine Infectious Disease
DX: L03.221 Cellulitis of neck (principal); L02.11 Cutaneous abscess of neck
CPT/HCPCS: 36415; 80053; 80202; 85025; 85652; 86140

== ENCOUNTER 2023-07-18 13:09 | Emergency (ER) | payer OTHER ==
[2023-07-18 13:34] VITALS: RESP 18
--- NOTE | 2023-07-18 13:56 | ED ---
General Adult HPI - General Chief complaint: ENT Stated complaint: L Earache Time Seen by Provider: 07/18/23 13:19 Source: patient, RN notes reviewed Mode of arrival: ambulatory Limitations: no limitations - History of Present Illness Initial comments: 32-year-old male presents to the emergency department chief complaint of sore throat 2 days. He states that the pain is worse on the left side. He states that this goes down his neck and up into his ear. He denies recent fever. Denies nausea, vomiting. He was recently hospitalized for a blood infection and has a PICC line. He is receiving IV vancomycin. He is following with Dr. Cason. He states he believes he has around 2 weeks left of the vancomycin. He does report that his children have similar symptoms of sore throat. He has a history of polysubstance abuse including IV drugs and opiates. He has a history of DVT after PICC line placement and is on anticoagulation. - Related Data Previous Rx's Medication Instructions Recorded Vancomycin HCl in 5 % Dextrose 1.5 gm IV Q8HR #120 each 06/24/23 [Vancomycin 1 Gram/250 ml-D5w] Acetaminophen Tab [Tylenol] 1,000 mg PO Q6H PRN tab 06/25/23 Gabapentin [Neurontin] See Rx Instructions .ROUTE 06/25/23 .COMPLEX 7 Days #101 cap Rivaroxaban [Xarelto] 10 mg PO DAILY #42 tab 06/25/23 Zolpidem [Ambien] See Rx Instructions .ROUTE 06/25/23 .COMPLEX PRN #10 tab Allergies Allergy/AdvReac Type Severity Reaction Status Date / Time No Known Allergies Allergy Verified 06/13/23 10:32 Review of Systems ROS Statement: Those systems with pertinent positive or pertinent negative responses have been documented in the HPI. ROS Other: All systems not noted in ROS Statement are negative. Past Medical History Past Medical History: No Reported History Additional Past Medical History / Comment(s): IV drug use (heroine) History of Any Multi-Drug Resistant Organisms: MRSA Date of last positivie culture/infection: 06/15/23 MDRO Source:: Neck Past Surgical History: No Surgical Hx Reported Past Psychological History: ADD/ADHD, Anxiety Smoking Status: Current every day smoker Past Alcohol Use History: Occasional Past Drug Use History: Heroin, IV Drug Use, Marijuana, Opiates, Prescription Drug Abuse - Past Family History Mother Family Medical History: Unable to Obtain (Patient refused to provide family history) General Exam Limitations: no limitations Head exam: Present: atraumatic, normocephalic, normal inspection Eye exam: Present: normal appearance, PERRL, EOMI. Absent: scleral icterus, conjunctival injection, periorbital swelling ENT exam: Present: TM's normal bilaterally, normal external ear exam, other (Tonsillar exudates bilaterally, erythema to oropharynx). Absent: normal exam, normal oropharynx Neck exam: Present: full ROM, lymphadenopathy. Absent: meningismus Respiratory exam: Present: normal lung sounds bilaterally. Absent: respiratory distress, wheezes, rales, rhonchi, stridor Cardiovascular Exam: Present: regular rate, normal rhythm, normal heart sounds. Absent: systolic murmur, diastolic murmur, rubs, gallop, clicks GI/Abdominal exam: Present: soft, normal bowel sounds. Absent: distended, tenderness, guarding, rebound, rigid Back exam: Present: normal inspection Neurological exam: Present: alert, oriented X3 Psychiatric exam: Present: normal affect, normal mood Skin exam: Present: warm, dry, intact, normal color. Absent: rash Course Vital Signs 07/18/23 07/18/23 13:12 16:13 Temperature 97.6 F 98.4 F Pulse Rate 111 H 96 Respiratory 18 18 Rate Blood Pressure 138/90 132/86 O2 Sat by Pulse 98 98 Oximetry Medical Decision Making - Medical Decision Making Was pt. sent in by a medical professional or institution (MARY Cespedes, SECRETARY OFFICE CLERK, urgent care, hospital, or fpc...) When possible be specific @ -No Did you speak to anyone other than the patient for history (EMS, parent, family, police, friend...)? What history was obtained from this source @ -No Did you review nursing and triage notes (agree or disagree)? Why? @ -I reviewed and agree with nursing and triage notes Were old charts reviewed (outside hosp., previous admission, EMS record, old EKG, old radiological studies, urgent care reports/EKG's, fpc records)? Report findings @ -No old charts were reviewed Differential Diagnosis (chest pain, altered mental status, abdominal pain women, abdominal pain men, vaginal bleeding, weakness, fever, dyspnea, syncope, headache, dizziness, GI bleed, back pain, seizure, CVA, palpatations, mental health, musculoskeletal)? @ -Strep pharyngitis, viral pharyngitis, tonsillitis, Covid, influenza, RSV, peritonsillar abscess, this list is not all-inclusive EKG interpreted by me (3pts min.). @ -None X-rays interpreted by me (1pt min.). @ -None done CT interpreted by me (1pt min.). @ -CT soft tissue neck shows Acute tonsillitis with reactive neck lymphadenopat hy, no evidence of abscess formation U/S interpreted by me (1pt. min.). @ -None done What testing was considered but not performed or refused? (CT, X-rays, U/S, labs)? Why? @ -None What meds were considered but not given or refused? Why? @ -None Did you discuss the management of the patient with other professionals (professionals i.e. , PA, SECRETARY OFFICE CLERK, lab, RT, psych nurse, high school social studies tutor, inside trucker, teacher, business development officer, residential case manager)? Give summary @ -No Was smoking cessation discussed for >3mins.? @ -No Was critical care preformed (if so, how long)? @ -No Were there social determinants of health that impacted care today? How? (Homelessness, low income, unemployed, alcoholism, drug addiction, transportation, low edu. Level, literacy, decrease access to med. care, [facility], rehab)? @ -No Was there de-escalation of care discussed even if they declined (Discuss DNR or withdrawal of care, Hospice)? DNR status @ -No What co-morbidities impacted this encounter? (DM, HTN, Smoking, COPD, CAD, Cancer, CVA, ARF, Chemo, Hep., AIDS, mental health diagnosis, sleep apnea, morbid obesity)? @ -None Was patient admitted / discharged? Hospital course, mention meds given and route, prescriptions, significant lab abnormalities, going to OR and other pertinent info. @ -Discharged. Patient presented emergency department with chief complaint of sore throat x2 days. He states his family members have similar symptoms. He is currently receiving vancomycin through his PICC line for a blood infection. He follows with Dr. Cason closely. Covid, influenza, RSV, strep, heterophile negative. Patient has tonsillar exudate. CT soft tissue neck shows acute tonsillitis with reactive neck lymphadenopathy without evidence for abscess formation. Laboratory studies obtained which show white count of 12.3. Because of this patient's history and significant exudate patient will be treated with a course of Augmentin to extend coverage. Patient was given a dose in the ED and given a starter pack. This was a written prescription as the patient is going out of [facility]. He will follow with infectious disease, Dr. Cason as [facility]. Patient discharged home in stable condition. Case discussed with Dr. Vance. Undiagnosed new problem with uncertain prognosis? @ -No Drug Therapy requiring intensive monitoring for toxicity (Heparin, Nitro, Insulin, Cardizem)? @ -No Were any procedures done? @ -No Diagnosis/symptom? @ -Tonsillitis Acute, or Chronic, or Acute on Chronic? @ -Acute Uncomplicated (without systemic symptoms) or Complicated (systemic symptoms)? @ -Uncomplicated Side effects of treatment? @ -No Exacerbation, Progression, or Severe Exacerbation? @ -No Poses a threat to life or bodily function? How? (Chest pain, [place], [place], pneumonia, PE, COPD, DKA, ARF, appy, cholecystitis, CVA, Diverticulitis, Homicidal, Suicidal, threat to staff... and all critical care pts) @ -No - Lab Data Result diagrams: 07/18/23 14:05 07/18/23 14:05 Lab Results 07/18/23 07/18/23 07/18/23 Range/Units 14:05 14:05 14:05 WBC 12.3 H (3.8-10.6) k/uL RBC 5.05 (4.30-5.90) m/uL Hgb 15.4 (13.0-17.5) gm/dL Hct 47.3 (39.0-53.0) % MCV 93.7 (80.0-100.0) fL MCH 30.5 (25.0-35.0) pg MCHC 32.5 (31.0-37.0) g/dL RDW 13.8 (11.5-15.5) % Plt Count 211 (150-450) k/uL MPV 8.5 Neutrophils % 76 % Lymphocytes % 16 % Monocytes % 5 % Eosinophils % 1 % Basophils % 0 % Neutrophils # 9.3 H (1.3-7.7) k/uL Lymphocytes # 1.9 (1.0-4.8) k/uL Monocytes # 0.6 (0-1.0) k/uL Eosinophils # 0.1 (0-0.7) k/uL Basophils # 0.1 (0-0.2) k/uL PT (10.0-12.5) sec INR (<1.2) APTT (22.0-30.0) sec Sodium 139 (137-145) mmol/L Potassium 3.8 (3.5-5.1) mmol/L Chloride 102 (98-107) mmol/L Carbon Dioxide 26 (22-30) mmol/L Anion Gap 11 mmol/L BUN 6 L (9-20) mg/dL Creatinine 0.71 (0.66-1.25) mg/dL Est GFR (CKD-EPI)AfAm >90 (>60 ml/min/1.73 sqM) Est GFR (CKD-EPI)NonAf >90 (>60 ml/min/1.73 sqM) Glucose 93 (74-99) mg/dL Plasma Lactic Acid Neil 0.9 (0.7-2.0) mmol/L Calcium 9.4 (8.4-10.2) mg/dL Total Bilirubin 0.6 (0.2-1.3) mg/dL AST 18 (17-59) U/L ALT 17 (4-49) U/L Alkaline Phosphatase 78 (38-126) U/L Total Protein 8.2 (6.3-8.2) g/dL Albumin 4.3 (3.5-5.0) g/dL Heterophile Antibody (Negative) Influenza Type A (PCR) (Not Detectd) Influenza Type B (PCR) (Not Detectd) RSV (PCR) (Not Detectd) SARS-CoV-2 (PCR) (Not Detectd) Group A Strep (PCR) (Not Detectd) 07/18/23 07/18/23 07/18/23 Range/Units 14:05 14:05 14:05 WBC (3.8-10.6) k/uL RBC (4.30-5.90) m/uL Hgb (13.0-17.5) gm/dL Hct (39.0-53.0) % MCV (80.0-100.0) fL MCH (25.0-35.0) pg MCHC (31.0-37.0) g/dL RDW (11.5-15.5) % Plt Count (150-450) k/uL MPV Neutrophils % % Lymphocytes % % Monocytes % % Eosinophils % % Basophils % % Neutrophils # (1.3-7.7) k/uL Lymphocytes # (1.0-4.8) k/uL Monocytes # (0-1.0) k/uL Eosinophils # (0-0.7) k/uL Basophils # (0-0.2) k/uL PT (10.0-12.5) sec INR (<1.2) APTT (22.0-30.0) sec Sodium (137-145) mmol/L Potassium (3.5-5.1) mmol/L Chloride (98-107) mmol/L Carbon Dioxide (22-30) mmol/L Anion Gap mmol/L BUN (9-20) mg/dL Creatinine (0.66-1.25) mg/dL Est GFR (CKD-EPI)AfAm (>60 ml/min/1.73 sqM) Est GFR (CKD-EPI)NonAf (>60 ml/min/1.73 sqM) Glucose (74-99) mg/dL Plasma Lactic Acid Neil (0.7-2.0) mmol/L Calcium (8.4-10.2) mg/dL Total Bilirubin (0.2-1.3) mg/dL AST (17-59) U/L ALT (4-49) U/L Alkaline Phosphatase (38-126) U/L Total Protein (6.3-8.2) g/dL Albumin (3.5-5.0) g/dL Heterophile Antibody Negative (Negative) Influenza Type A (PCR) Not Detected (Not Detectd) Influenza Type B (PCR) Not Detected (Not Detectd) RSV (PCR) Not Detected (Not Detectd) SARS-CoV-2 (PCR) Not Detected (Not Detectd) Group A Strep (PCR) NOT DETECTED (Not Detectd) 07/18/23 Range/Units 14:05 WBC (3.8-10.6) k/uL RBC (4.30-5.90) m/uL Hgb (13.0-17.5) gm/dL Hct (39.0-53.0) % MCV (80.0-100.0) fL MCH (25.0-35.0) pg MCHC (31.0-37.0) g/dL RDW (11.5-15.5) % Plt Count (150-450) k/uL MPV Neutrophils % % Lymphocytes % % Monocytes % % Eosinophils % % Basophils % % Neutrophils # (1.3-7.7) k/uL Lymphocytes # (1.0-4.8) k/uL Monocytes # (0-1.0) k/uL Eosinophils # (0-0.7) k/uL Basophils # (0-0.2) k/uL PT 11.8 (10.0-12.5) sec INR 1.1 (<1.2) APTT 30.5 H (22.0-30.0) sec Sodium (137-145) mmol/L Potassium (3.5-5.1) mmol/L Chloride (98-107) mmol/L Carbon Dioxide (22-30) mmol/L Anion Gap mmol/L BUN (9-20) mg/dL Creatinine (0.66-1.25) mg/dL Est GFR (CKD-EPI)AfAm (>60 ml/min/1.73 sqM) Est GFR (CKD-EPI)NonAf (>60 ml/min/1.73 sqM) Glucose (74-99) mg/dL Plasma Lactic Acid Neil (0.7-2.0) mmol/L Calcium (8.4-10.2) mg/dL Total Bilirubin (0.2-1.3) mg/dL AST (17-59) U/L ALT (4-49) U/L Alkaline Phosphatase (38-126) U/L Total Protein (6.3-8.2) g/dL Albumin (3.5-5.0) g/dL Heterophile Antibody (Negative) Influenza Type A (PCR) (Not Detectd) Influenza Type B (PCR) (Not Detectd) RSV (PCR) (Not Detectd) SARS-CoV-2 (PCR) (Not Detectd) Group A Strep (PCR) (Not Detectd) Disposition Clinical Impression: Tonsillitis Disposition: HOME SELF-CARE Condition: Stable Instructions (If sedation given, give patient instructions): Pharyngitis (ED) Additional Instructions: Please follow up with Dr. Cason and your primary care provider. Return to the emergency department for new or worsening symptoms. Is patient prescribed a controlled substance at d/c from ED?: No Referrals: Robert Brown MD [Primary Care Provider] - 1-2 days
[2023-07-18 14:25] LABS: Basophils # (A) 0.1 k/uL (0-0.2); Basophils % (A) 0 %; Eosinophils # (A) 0.1 k/uL (0-0.7); Eosinophils % (A) 1 %; HCT 47.3 % (39.0-53.0); HGB 15.4 gm/dL (13.0-17.5); Lymphocytes # (A) 1.9 k/uL (1.0-4.8); Lymphocytes % (A) 16 %; MCH 30.5 pg (25.0-35.0); MCHC 32.5 g/dL (31.0-37.0); MCV 93.7 fL (80.0-100.0); Mean Platelet Volume 8.5; Monocytes # (A) 0.6 k/uL (0-1.0); Monocytes % (A) 5 %; Neutrophils # (A) 9.3 k/uL (1.3-7.7); Neutrophils % (A) 76 %; Platelet Count 211 k/uL (150-450); RBC 5.05 m/uL (4.30-5.90); RDW 13.8 % (11.5-15.5); WBC 12.3 k/uL (3.8-10.6)
[2023-07-18 14:38] LABS: INR 1.1 (<1.2); Partial Thromboplastin Time 30.5 sec (22.0-30.0); Prothrombin Time 11.8 sec (10.0-12.5)
[2023-07-18 14:40] LABS: ALT 17 U/L (4-49); AST 18 U/L (17-59); African American GFR (CKD) >90 (>60 ml/min/1.73 sqM); Albumin 4.3 g/dL (3.5-5.0); Alkaline Phosphatase 78 U/L (38-126); Anion Gap 11 mmol/L; Blood Urea Nitrogen 6 mg/dL (9-20); Calcium 9.4 mg/dL (8.4-10.2); Carbon Dioxide 26 mmol/L (22-30); Chloride 102 mmol/L (98-107); Glucose 93 mg/dL (74-99); Non-African American GFR(CKD) >90 (>60 ml/min/1.73 sqM); Potassium 3.8 mmol/L (3.5-5.1); Sodium 139 mmol/L (137-145); Total Bilirubin 0.6 mg/dL (0.2-1.3); Total Protein 8.2 g/dL (6.3-8.2)
--- NOTE | 2023-07-18 15:26 | CT ---
EXAMINATION TYPE: CT soft tissue neck w con CT DLP: 325.8 mGycm, Automated exposure control for dose reduction was used. DATE OF EXAM: 07/18/2023 3:16 PM COMPARISON: . CLINICAL INDICATION:Male, 32 years old with history of pain, swelling; PHH, LEFT SIDED NECK / THROAT PAIN. TECHNIQUE: Standard enhanced CT of the neck. Axial sections with coronal and sagittal reformats were obtained. Contrast used:100ML mL of Isovue 300 with IV Contrast, Oral contrast used: none. FINDINGS: Brain: Visualized portions are grossly unremarkable. Orbits: Unremarkable Sinuses: Left maxillary sinus 1.2 cm retention cyst. Spaces of the neck: The palatine tonsil are prominent with focal area of hypoattenuation noted in the right palatine tonsil. No evidence of rim-enhancing collection is identified. There are enlarged lym ph nodes identified in the neck, left greater than right lung the anterior cervical chains. Musculoskeletal: No acute osseous pathology. Vascular structures: Visualized major arteries are patent without evidence of aneurysm. Thoracic Inlet/airway: Airway is patent. Interfissural lymph node identified on the left measuring 9 mm. Soft tissues/Thyroid: Thyroid and remainder of the soft tissues are unremarkable. IMPRESSION Findings most consistent with acute tonsillitis, with reactive neck lymphadenopathy. No evidence of a bscess formation.
[2023-07-18] MEDS ORDERED: AMOXIC-POT CLAV 875-125MG 1 EACH TAB PO STA (15:54)
[2023-07-18] MEDS ORDERED: AMOXIC-POT CLAV 875MG STARTER PACK 2 TAB BTL PO STA (15:54)
[2023-07-18 16:32] VITALS: BP 132/86; PULSE 96; TEMP 98.4
== END 2023-07-18 16:15 | disposition home or self-care (01) ==
LOC: EC 13:09
DX: J03.90 Acute tonsillitis, unspecified (principal); F17.200 Nicotine dependence, unspecified, uncomplicated; Z20.822 Contact with and (suspected) exposure to COVID-19
CPT/HCPCS: 36415; 87651; 80053; 83605; 85025; 85610; 85730; 86308; 87636; 70491; 99284; Q9967

== ENCOUNTER → 2023-07-26 | Outpatient (CLI) | payer OTHER ==
--- NOTE | 2023-07-26 07:48 | US ---
EXAMINATION TYPE: US venous doppler duplex UE RT DATE OF EXAM: 07/26/2023 COMPARISON: NONE CLINICAL INDICATION: Male, 32 years old with history of Z86.718 PERSONAL HISTORY OF OTHER VENOUS THRO MBOSI; basilic vein thrombus last month SIDE PERFORMED: Right Right Arm: Negative for DVT still has ongoing basilic thrombus in upper arm as noted last month, i nternal echoes that do not fully compress IMPRESSION: 1. Right upper extremity ultrasound negative for deep venous thrombosis. 2. Superficial venous thrombosis remains within the basilic vein
== END | disposition home or self-care (01) ==
LOC: RADUSWWP 06:54
PROVIDERS: ATTEND Internal Medicine
DX: I82.611 Acute embolism and thrombosis of superficial veins of right upper extremity (principal); Z86.718 Personal history of other venous thrombosis and embolism

== ENCOUNTER → 2023-07-27 | Outpatient (CLI) | payer OTHER ==
[2023-07-27 15:50] LABS: Basophils # (A) 0.08 X 10*3/uL (0.00-0.10); Basophils % (A) 0.9 %; Eosinophils # (A) 0.21 X 10*3/uL (0.04-0.35); Eosinophils % (A) 2.5 %; HCT 48.6 % (39.6-50.0); HGB 15.7 d/dL (13.0-17.0); Lymphocytes # (A) 2.52 X 10*3/uL (0.90-5.00); Lymphocytes % (A) 29.7 %; MCHC 32.3 d/dL (32.0-37.0); MCV 92.9 FL (80.0-97.0); Monocytes # (A) 0.55 X 10*3/uL (0.20-1.00); Monocytes % (A) 6.5 %; NRBC Per 100 WBC 0 X 10*3/uL (0.00-0.01); Neutrophils # (A) 5.05 X 10*3/uL (1.80-7.70); Neutrophils % (A) 59.5 %; Platelet Count 276 X 10*3/uL (140-440); RBC 5.23 X 10*6/uL (4.40-5.60); RDW 13.3 % (11.5-14.5); WBC 8.49 X 10*3/uL (4.50-10.00)
[2023-07-27 15:51] LABS: BUN/Creat Ratio 11.89 Ratio (12.00-20.00); Blood Urea Nitrogen 10.7 mg/dL (9.0-27.0); Chloride 101 mmol/L (96-109); Glucose 85 mg/dL (70-110); Potassium 4.4 mmol/L (3.5-5.5); Sodium 139 mmol/L (135-145)
[2023-07-27 15:52] LABS: ALT 19 U/L (10-49); AST 22 U/L (14-35); Albumin 4.6 d/dL (3.8-4.9); Albumin/Globulin Ratio 1.39 Ratio (1.60-3.17); Alkaline Phosphatase 81 U/L (41-126); Calcium 10.1 mg/dL (8.7-10.3); Carbon Dioxide 26.6 mmol/L (21.6-31.8); Globulin 3.3 d/dL (1.6-3.3); Total Bilirubin 0.3 mg/dL (0.3-1.2); Total Protein 7.9 d/dL (6.2-8.2)
[2023-07-27 16:15] LABS: Erythrocyte Sedimentation Rate 48 mm/Hr (0-15)
== END | disposition home or self-care (01) ==
LOC: LABWHC1 10:29
PROVIDERS: ATTEND Internal Medicine Infectious Disease
DX: A41.02 Sepsis due to Methicillin resistant Staphylococcus aureus (principal)
CPT/HCPCS: 36415; 80053; 80202; 85025; 85652; 86140

== ENCOUNTER 2023-07-31 22:51 | Emergency (ER) | payer OTHER ==
[2023-07-31] MEDS ORDERED: ALTEPLASE 2 MG VIAL (CATHFLO) IV STA (23:03)
[2023-07-31 23:04] VITALS: BP 126/81; PULSE 78; RESP 16; TEMP 98.2
[2023-07-31] MEDS ORDERED: VANCOMYCIN IV PER PHARMACY 1 EACH MISC MISCELLANE PRN (23:16)
[2023-08-01 00:29] LABS: Basophils # (A) 0.1 k/uL (0-0.2); Basophils % (A) 1 %; Eosinophils # (A) 0.3 k/uL (0-0.7); Eosinophils % (A) 3 %; HGB 14.6 gm/dL (13.0-17.5); Lymphocytes % (A) 29 %; MCH 31.3 pg (25.0-35.0); MCHC 33.9 g/dL (31.0-37.0); MCV 92.2 fL (80.0-100.0); Mean Platelet Volume 8.6; Monocytes # (A) 0.6 k/uL (0-1.0); Monocytes % (A) 6 %; Neutrophils # (A) 6.3 k/uL (1.3-7.7); Neutrophils % (A) 60 %; Platelet Count 266 k/uL (150-450); RBC 4.66 m/uL (4.30-5.90); RDW 13.9 % (11.5-15.5); WBC 10.5 k/uL (3.8-10.6)
[2023-08-01] MEDS ORDERED: VANCOMYCIN 1,750 MG in SODIUM CHLORIDE 0.9% 500 ML 500 ML IVPB ONE (01:00)
== END 2023-08-01 04:38 | disposition left against medical advice (07) ==
LOC: EC 22:51
DX: Z53.29 Procedure and treatment not carried out because of patient's decision for other reasons (principal); T80.211A Bloodstream infection due to central venous catheter, initial encounter
CPT/HCPCS: 36415; 85025; 87040; 99499; J3370

== ENCOUNTER 2023-08-01 23:10 | Emergency (ER) | payer OTHER ==
[2023-08-01] MEDS ORDERED: VANCOMYCIN IV PER PHARMACY 1 EACH MISC MISCELLANE PRN (23:36)
--- NOTE | 2023-08-02 00:06 | ED ---
General Adult HPI - General Chief complaint: Recheck/Abnormal Lab/Rx Stated complaint: Picc Line infusion Time Seen by Provider: 08/01/23 23:16 Source: patient, RN notes reviewed Mode of arrival: ambulatory Limitations: no limitations - History of Present Illness Initial comments: 32-year-old male with a past medical history significant for po lysubstance abuse presents emergency Department with chief complaint of abnormal labs. Patient reports the pain being treated for a blood clot in his lungs. He reports that his PICC line was removed. He reports that he is here for a vancomycin infusion. He denies any constitutional this time. - Related Data Previous Rx's Medication Instructions Recorded Vancomycin HCl in 5 % Dextrose 1.5 gm IV Q8HR #120 each 06/24/23 [Vancomycin 1 Gram/250 ml-D5w] Acetaminophen Tab [Tylenol] 1,000 mg PO Q6H PRN tab 06/25/23 Gabapentin [Neurontin] See Rx Instructions .ROUTE 06/25/23 .COMPLEX 7 Days #101 cap Rivaroxaban [Xarelto] 10 mg PO DAILY #42 tab 06/25/23 Zolpidem [Ambien] See Rx Instructions .ROUTE 06/25/23 .COMPLEX PRN #10 tab Allergies Allergy/AdvReac Type Severity Reaction Status Date / Time No Known Allergies Allergy Verified 08/01/23 23:14 Review of Systems ROS Statement: Those systems with pertinent positive or pertinent negative responses have been documented in the HPI. ROS Other: All systems not noted in ROS Statement are negative. Past Medical History Past Medical History: No Reported History Additional Past Medical History / Comment(s): IV drug use (heroine) History of Any Multi-Drug Resistant Organisms: MRSA Date of last positivie culture/infection: 06/15/23 MDRO Source:: Neck Past Surgical History: No Surgical Hx Reported Past Psychological History: ADD/ADHD, Anxiety Smoking Status: Current every day smoker Past Alcohol Use History: Occasional Past Drug Use History: Heroin, IV Drug Use, Marijuana, Opiates, Prescription Drug Abuse - Past Family History Mother Family Medical History: Unable to Obtain (Patient refused to provide family history) General Exam - General Exam Comments Initial Comments: General: Alert, in no acute distress Head: atraumatic normocephalic. Eyes PERRL, EOMI intact, mucous membranes moist Respiratory: Lungs clear to auscultation bilaterally Cardiovascular: Heart rate regular rate and rhythm Abdominal: Soft without guarding or rebound Extremities: Normal inspection with full range of motion and normal capillary refill Neuroogic: alert and oriented 3, CN II-XII intact, able to ambulate with steady gait Skin: warm dry and intact with normal color Limitations: no limitations Course Vital Signs 08/01/23 23:11 Temperature 97.6 F Pulse Rate 95 Respiratory 16 Rate Blood Pressure 120/82 O2 Sat by Pulse 98 Oximetry Medical Decision Making - Medical Decision Making Was pt. sent in by a medical professional or institution (, MARY, INFANTRY WEAPONS OFFICER, urgent care, hospital, or penitentiary...) When possible be specific @ -[No] Did you speak to anyone other than the patient for history (EMS, parent, family, police, friend...)? What history was obtained from this source @ -[No] Did you review nursing and triage notes (agree or disagree)? Why? @ -[I reviewed and agree with nursing and triage notes] Were old charts reviewed (outside hosp., previous admission, EMS record, old EKG, old radiological studies, urgent care reports/EKG's, penitentiary records)? Report findings @ -Chart reviewed from 07/31/2023. Differential Diagnosis (chest pain, altered mental status, abdominal pain women, abdominal pain men, vaginal bleeding, weakness, fever, dyspnea, syncope, headache, dizziness, GI bleed, back pain, seizure, CVA, palpatations, mental health, musculoskeletal)? @ -[not applicable] EKG interpreted by me (3pts min.). @ -[As above] X-rays interpreted by me (1pt min.). @ -[None done] CT interpreted by me (1pt min.). @ -[None done] U/S interpreted by me (1pt. min.). @ -[None done] What testing was considered but not performed or refused? (CT, X-rays, U/S, labs)? Why? @ -[None] What meds were considered but not given or refused? Why? @ -[None] Did you discuss the management of the patient with other professionals (professionals i.e. , MARY, INFANTRY WEAPONS OFFICER, lab, RT, psych nurse, administrator social welfare, audit analyst, teacher, inspectors and regulatory officers, case mgr)? Give summary @ -[No] Was smoking cessation discussed for >3mins.? @ -[No] Was critical care preformed (if so, how long)? @ -[No] Were there social determinants of health that impacted care today? How? (Homelessness, low income, unemployed, alcoholism, drug addiction, transportation, low edu. Level, literacy, decrease access to med. care, alf, rehab)? @ -[No] Was there de-escalation of care discussed even if they declined (Discuss DNR or withdrawal of care, Hospice)? DNR status @ -[No] What co-morbidities impacted this encounter? (DM, HTN, Smoking, COPD, CAD, Cancer, CVA, ARF, Chemo, Hep., AIDS, mental health diagnosis, sleep apnea, morbid obesity)? @ -[None] Was patient admitted / discharged? Hospital course, mention meds given and route, prescriptions, significant lab abnormalities, going to OR and other pertinent info. @ -Discharged. This is a 32 history significant for polysubstance abuse who presents the emergency department for vancomycin infusion. Patient received vancomycin. Return parameters discussed. This was in stable condition. Case discussed with Dr. Dang Idris who agrees with POC Undiagnosed new problem with uncertain prognosis? @ -[No] Drug Therapy requiring intensive monitoring for toxicity (Heparin, Nitro, Insulin, Cardizem)? @ -[No] Were any procedures done? @ -[No] Diagnosis/symptom? @ -Encounter for Vancomycin Acute, or Chronic, or Acute on Chronic? @ -Acute Uncomplicated (without systemic symptoms) or Complicated (systemic symptoms)? @ -Uncomplicated Side effects of treatment? @ -[No] Exacerbation, Progression, or Severe Exacerbation? @ -[No] Poses a threat to life or bodily function? How? (Chest pain, [place], [place], pneumonia, PE, COPD, DKA, ARF, appy, cholecystitis, CVA, Diverticulitis, Homicidal, Suicidal, threat to staff... and all critical care pts) @ -Low likelihood Disposition Clinical Impression: Encounter for medication refill Disposition: HOME SELF-CARE Condition: Stable Instructions (If sedation given, give patient instructions): Vancomycin (By injection) Additional Instructions: Please follow up with infectious disease services convenience Please return to the nearest emergency department if worsening symptoms Is patient prescribed a controlled substance at d/c from ED?: No Referrals: Robert Brown MD [Primary Care Provider] - 1-2 days Krystian Cason MD [STAFF PHYSICIAN] - 1-2 days Time of Disposition: 01:57
[2023-08-02] MEDS ORDERED: VANCOMYCIN 1,750 MG in SODIUM CHLORIDE 0.9% 500 ML 500 ML IVPB ONE (01:00)
[2023-08-02 04:38] VITALS: BP 127/74; PULSE 90; RESP 19; TEMP 97.4
== END 2023-08-02 04:36 | disposition home or self-care (01) ==
LOC: EC 23:10
DX: Z76.0 Encounter for issue of repeat prescription (principal); F12.90 Cannabis use, unspecified, uncomplicated; F11.29 Opioid dependence with unspecified opioid-induced disorder; F17.200 Nicotine dependence, unspecified, uncomplicated; Z86.59 Personal history of other mental and behavioral disorders
CPT/HCPCS: 99284; 96365; 96366 ×2; J3370; 96360; 96361

== ENCOUNTER → 2023-08-09 | Outpatient (CLI) | payer OTHER ==
--- NOTE | 2023-08-09 08:36 | CT ---
EXAMINATION TYPE: CT chest w con CT DLP: 465 mGycm, Automated exposure control for dose reduction was used. DATE OF EXAM: 08/09/2023 8:02 AM COMPARISON: CT 06/21/2023 CLINICAL INDICATION:Male, 32 years old with history of I26.90 SEPTIC PULMONA RY EMBOLISM WITHOUT ACUTE; PHH, Septic Pulmonary Embolism without acute TECHNIQUE: Multiple axial images were obtained through the chest. Sagittal and coronal reformats were created for review. Contrast used:100 ml mL of Isovue 300 with IV Contrast (None if empty) Oral contrast used: (None if empty) FINDINGS: LUNGS/ PLEURA: Decrease in size of the parenchymal abnormalities throughout the lungs. The large righ t upper lung cavitary lesion has decreased to 12 mm, previously 38 mm. The remainder of the smaller l esions are also smaller in size. Large right loculated pleural effusion on prior has decreased, it is now trace. Streaky atelectasis extending away from the pleural effusion possibly representing cicatr isation atelectasis. No focal airspace consolidation, pneumothorax or pleural effusion. AIRWAY: Patent and unremarkable. HEART: Size within normal limits. MEDIASTINUM: No gross evidence of adenopathy. VASCULATURE: No aortic aneurysm. MUSCULOSKELETAL: No acute osseous abnormalities SOFT TISSUES/LYMPH NODES: Unremarkable. LOWER NECK: No significant findings. UPPER ABDOMEN: No significant findings. IMPRESSION: Interval improvement of opacities throughout the lungs. The largest right upper lung airspace cavitar y lesion has not decreased in size. The right pleural effusion which was loculated has also decreased in size and is now trace. There are no new pulmonary nodules.
== END | disposition home or self-care (01) ==
LOC: RADCTMAIN 06:44
PROVIDERS: ATTEND Internal Medicine Infectious Disease
DX: I26.90 Septic pulmonary embolism without acute cor pulmonale (principal); J90 Pleural effusion, not elsewhere classified; R91.8 Other nonspecific abnormal finding of lung field
CPT/HCPCS: 71260; Q9967

== ENCOUNTER → 2023-08-10 | Outpatient (CLI) | payer OTHER ==
[2023-08-11 01:43] LABS: Basophils # (A) 0.06 X 10*3/uL (0.00-0.10); Basophils % (A) 0.8 %; Eosinophils # (A) 0.09 X 10*3/uL (0.04-0.35); Eosinophils % (A) 1.2 %; HCT 47.4 % (39.6-50.0); HGB 15.1 g/dL (13.0-17.0); Lymphocytes # (A) 2.01 X 10*3/uL (0.90-5.00); Lymphocytes % (A) 25.8 %; MCH 29.8 pg (27.0-32.0); MCHC 31.9 g/dL (32.0-37.0); MCV 93.5 FL (80.0-97.0); Mean Platelet Volume 12.8 FL (9.5-12.2); Monocytes # (A) 0.51 X 10*3/uL (0.20-1.00); Monocytes % (A) 6.5 %; NRBC Per 100 WBC 0 X 10*3/uL (0.00-0.01); Neutrophils # (A) 5.09 X 10*3/uL (1.80-7.70); Neutrophils % (A) 65.3 %; Platelet Count 251 X 10*3/uL (140-440); RBC 5.07 X 10*6/uL (4.40-5.60); RDW 13.8 % (11.5-14.5); WBC 7.79 X 10*3/uL (4.50-10.00)
[2023-08-11 02:13] LABS: BUN/Creat Ratio 9.36 Ratio (12.00-20.00); Blood Urea Nitrogen 10.3 mg/dL (9.0-27.0); C Reactive Protein <0.30 mg/dL (0.00-0.80); Calcium 9.8 mg/dL (8.7-10.3); Carbon Dioxide 26.9 mmol/L (21.6-31.8); Chloride 99 mmol/L (96-109); Glucose 88 mg/dL (70-110); Potassium 4.2 mmol/L (3.5-5.5); Sodium 137 mmol/L (135-145)
== END | disposition home or self-care (01) ==
LOC: LABWHC1 15:35
PROVIDERS: ATTEND Internal Medicine Infectious Disease
DX: J18.9 Pneumonia, unspecified organism (principal)
CPT/HCPCS: 36415; 80048; 85025; 86140

== ENCOUNTER → 2023-09-27 | Outpatient (CLI) | payer OTHER ==
[2023-09-28 02:04] LABS: Basophils # (A) 0.09 X 10*3/uL (0.00-0.10); Basophils % (A) 1.1 %; Eosinophils # (A) 0.17 X 10*3/uL (0.04-0.35); Eosinophils % (A) 2.1 %; HCT 47.8 % (39.6-50.0); HGB 15.9 g/dL (13.0-17.0); Lymphocytes % (A) 23.3 %; MCH 30.5 pg (27.0-32.0); MCHC 33.3 g/dL (32.0-37.0); MCV 91.7 FL (80.0-97.0); Mean Platelet Volume 11.6 FL (9.5-12.2); Monocytes # (A) 0.53 X 10*3/uL (0.20-1.00); Monocytes % (A) 6.5 %; NRBC Per 100 WBC 0 X 10*3/uL (0.00-0.01); Neutrophils # (A) 5.44 X 10*3/uL (1.80-7.70); Neutrophils % (A) 66.8 %; Platelet Count 306 X 10*3/uL (140-440); RBC 5.21 X 10*6/uL (4.40-5.60); RDW 13.3 % (11.5-14.5); WBC 8.15 X 10*3/uL (4.50-10.00)
[2023-09-28 02:25] LABS: Erythrocyte Sedimentation Rate 24 mm/Hr (0-15)
[2023-09-28 03:25] LABS: ALT 14 U/L (10-49); AST 26 U/L (14-35); Albumin 4.3 g/dL (3.8-4.9); Albumin/Globulin Ratio 1.48 Ratio (1.60-3.17); Alkaline Phosphatase 83 U/L (41-126); Blood Urea Nitrogen 12.1 mg/dL (9.0-27.0); Calcium 9.9 mg/dL (8.7-10.3); Carbon Dioxide 21.8 mmol/L (21.6-31.8); Chloride 104 mmol/L (96-109); Globulin 2.9 g/dL (1.6-3.3); Glucose 128 mg/dL (70-110); Potassium 4.4 mmol/L (3.5-5.5); Sodium 138 mmol/L (135-145); Total Bilirubin 0.3 mg/dL (0.3-1.2); Total Protein 7.2 g/dL (6.2-8.2)
== END | disposition home or self-care (01) ==
LOC: LABWHC1 14:49
PROVIDERS: ATTEND Internal Medicine Infectious Disease
DX: R05.9 Cough, unspecified (principal); I76 Septic arterial embolism
CPT/HCPCS: 36415; 80053; 85025; 85652; 86140

== ENCOUNTER → 2023-10-08 | Outpatient (CLI) | payer OTHER ==
--- NOTE | 2023-10-08 17:57 | CT ---
EXAMINATION TYPE: CT chest w con DATE OF EXAM: 10/08/2023 COMPARISON: 08/09/2023 HISTORY: chest burning, sob, cough, hx of septic emboli x2 months ago CT DLP: 431 mGycm Automated exposure control for dose reduction was used. CONTRAST: CT scan of the chest is performed with IV Contrast, patient injected with 100 mL of Isovue 300. FINDINGS: LUNGS: Nodular density left upper lobe posteriorly image 15 is smaller than on prior study currently measures 4.5 mm versus 8 mm previously. Minimal scarring right upper lobe image 26 has improved since prior study. Stable tiny nodular density superior segment left lower lobe measures 5 mm versus 5 mm seen previously. Minimal scarring at the lung bases unchanged. MEDIASTINUM: There are no greater than 1 cm hilar or mediastinal lymph nodes. No pericardial effusi on is seen. Thoracic aorta is of normal caliber. The heart is not enlarged. UPPER ABDOMEN: No significant abnormality appreciated. OTHER: No additional significant abnormality is seen. IMPRESSION: 1. There is a parenchymal scarring stable nodularity. No evidence for septic emboli is time.
== END | disposition home or self-care (01) ==
LOC: RADCTMAIN 15:39
PROVIDERS: ATTEND Internal Medicine Infectious Disease
DX: R06.02 Shortness of breath (principal); J98.4 Other disorders of lung
CPT/HCPCS: 71260; Q9967